=== PATIENT | female | born 1945 | race Caucasian/White ===

== ENCOUNTER 2019-09-10 01:15 | Day surgery (SDC) | payer MEDICARE, BC, SELFPAY ==
[2019-09-05 15:00] VITALS: BMI 23.4
[2019-09-10 08:06] VITALS: BP 162/81; PULSE 85; RESP 20; TEMP 36.4; O2SAT 97
--- NOTE | 2019-09-10 08:11 | WPDANESEPPF ---
Anes - Initial Pre Proc Eval Procedure: Operation Date: 09/10/19 09:00 Proposed Procedures p Screening Colonoscopy - Hayden Basilio MD Date/Time: 09/10/19 08:11 Surgeon: Hayden Basilio MD Pre Op Diagnosis: Neoplasm Screening Patient Data Age: 74 Gender: F Height: 1.75 m Weight: 72.6 kg Last Vital Signs Temp 36.4 C 09/10/19 08:06 Pulse 85 09/10/19 08:06 Resp 20 09/10/19 08:06 BP 162/81 H 09/10/19 08:06 Pulse Ox 97 09/10/19 08:06 Allergies Allergy/AdvReac Type Severity Reaction Status Date / Time Penicillins Allergy Unknown Rash Verified 09/10/19 08:00 Home Medications Medication Instructions Recorded Confirmed Type atorvastatin 10 mg tablet 10 mg PO DAILY #90 tablet 08/10/19 09/05/19 Rx albuterol sulfate [ProAir HFA] 1 inh INHALATION QID PRN 09/05/19 09/05/19 History amitriptyline 50 mg PO DAILY 09/05/19 09/05/19 History biotin 1 mg PO DAILY 09/05/19 09/05/19 History calcium carbonate [Calcium 600] 600 mg PO DAILY 09/05/19 09/05/19 History cholecalciferol (vitamin D3) 25 mcg PO DAILY 09/05/19 09/05/19 History [Vitamin D3] belen ajvfew-Bc-crlPnfesiseu-tea 1 tablet PO DAILY 09/05/19 09/05/19 History [Apple Cider Vinegar Plus] cinnamon bark [Cinnamon] 500 mg PO DAILY 09/05/19 09/05/19 History diphenhydramine HCl [Allergy] 25 mg PO HS 09/05/19 09/05/19 History fluticasone propionate 50 mcg INTRANASAL DAILY 09/05/19 09/05/19 History spjlhbpqqyl-jkdsbqxei-ggrjezex 1 inh INHALATION HS 09/05/19 09/05/19 History [Trelegy Ellipta] folic acid 0.8 mg PO DAILY 09/05/19 09/05/19 History glucosam mejia awn-pqczzxzzf-S-Mn 1 cap PO DAILY 09/05/19 09/05/19 History multivitamin [Multiple Vitamins] 1 tablet PO DAILY 09/05/19 09/05/19 History mv,Ca,min-iron bqcg-LC-kmhfpv 1 tablet PO DAILY 09/05/19 09/05/19 History [Hair,Skin and Nails] ranitidine HCl 300 mg PO BID 09/05/19 09/05/19 History vit C,V-Js-wlrhr-lutein-zeaxan 1 cap PO DAILY 09/05/19 09/05/19 History [PreserVision AREDS-2] vitamin E 400 unit PO DAILY 09/05/19 09/05/19 History Patient hx anesthesia problems: none Family hx anesthesia problems: none [facility] Past Medical History Medical History (Updated 09/10/19 @ 08:12 by Armando Jalloh DO) Asthma Elevated diaphragm was causing GERD/cough. No breathing issues. Cough stopped after GERD treated GERD (gastroesophageal reflux disease) RLS (restless legs syndrome) Family History Family History (Updated 05/29/18 @ 11:48 by DOCTOR UNKNOWN) Other Acute myocardial infarction Family history of emphysema Social History Social History Smoking status: Former smoker Smoking end date: 08/29/93 Anes - Eval Final PreProcedure Day of Procedure 09/10/19 08:11 Patient weight: normal Heart: regular rate and rhythm Lungs: clear to auscultation and normal air movement Airway: Mallampati scale class II Neurological: alert and oriented Last oral intake: >/= 8 hours ASA classification: II Emergent: no Anesthetic plan: proceed Anesthesia type and monitoring: general GIVS and standard monitoring Informed Consent: The patient's anesthetic plan and its attendant risks and benefits were discussed with the patient/family/POA. Questions were solicited and answers provided to the satisfaction of the patient/family/POA.
[2019-09-10] MEDS: LACTATED RINGERS 1,000 ML 150 ML IV CONT (08:18)
--- NOTE | 2019-09-10 08:20 | WPDGICN ---
Assessment and Plan Additional Plan This is a 74-year-old white female patient seen in evaluation at the request of Dr. Trice Arauz. Patient presents for screening colonoscopy. Her current weight appetite bowel movements are normal. She denies any blood in her stools. She denies any abdominal pain. Her last colonoscopy was 10 years previous to this. Family history is noncontributory. Current medications include ProAir, atorvastatin, amitriptyline, and ranitidine. She has no stated drug allergies. Physical exam reveals her to be alert. Oriented x3. Vital signs stable. HEENT exam unremarkable. Lungs are clear to auscultation and percussion. Heart is without murmur or extra sounds. Abdominal exam bowel sounds are present soft nontender with no organomegaly. Digital external rectal exam is normal. Impression neoplasia screening advised because of her age. Plan is for colonoscopy to be performed today. GI Consult Note Consult date/time: 09/10/19 08:20 HPI: Jodee Castle is a 74 year old female [facility] Past Medical History Medical History (Updated 09/10/19 @ 08:12 by Armando Jalloh DO) Asthma Elevated diaphragm was causing GERD/cough. No breathing issues. Cough stopped after GERD treated GERD (gastroesophageal reflux disease) RLS (restless legs syndrome) Family History Family History (Updated 05/29/18 @ 11:48 by DOCTOR UNKNOWN) Other Acute myocardial infarction Family history of emphysema Social History Social History Smoking status: Former smoker Smoking end date: 08/29/93 Meds Home Medications and Allergies Home Medications Medication Instructions Recorded Confirmed Type atorvastatin 10 mg tablet 10 mg PO DAILY #90 tablet 08/10/19 09/05/19 Rx albuterol sulfate [ProAir HFA] 1 inh INHALATION QID PRN 09/05/19 09/05/19 History amitriptyline 50 mg PO DAILY 09/05/19 09/05/19 History biotin 1 mg PO DAILY 09/05/19 09/05/19 History calcium carbonate [Calcium 600] 600 mg PO DAILY 09/05/19 09/05/19 History cholecalciferol (vitamin D3) 25 mcg PO DAILY 09/05/19 09/05/19 History [Vitamin D3] belen xiwuuc-Ne-epqNymejgdrb-tea 1 tablet PO DAILY 09/05/19 09/05/19 History [Apple Cider Vinegar Plus] cinnamon bark [Cinnamon] 500 mg PO DAILY 09/05/19 09/05/19 History diphenhydramine HCl [Allergy] 25 mg PO HS 09/05/19 09/05/19 History fluticasone propionate 50 mcg INTRANASAL DAILY 09/05/19 09/05/19 History xryfqvmvcfx-wngdbyllb-kmlxpxlf 1 inh INHALATION HS 09/05/19 09/05/19 History [Trelegy Ellipta] folic acid 0.8 mg PO DAILY 09/05/19 09/05/19 History glucosam mejia agp-xolzoowaj-H-Mn 1 cap PO DAILY 09/05/19 09/05/19 History multivitamin [Multiple Vitamins] 1 tablet PO DAILY 09/05/19 09/05/19 History mv,Ca,min-iron cdjz-MF-mrepww 1 tablet PO DAILY 09/05/19 09/05/19 History [Hair,Skin and Nails] ranitidine HCl 300 mg PO BID 09/05/19 09/05/19 History vit C,A-Ho-wuqci-lutein-zeaxan 1 cap PO DAILY 09/05/19 09/05/19 History [PreserVision AREDS-2] vitamin E 400 unit PO DAILY 09/05/19 09/05/19 History Allergies Allergy/AdvReac Type Severity Reaction Status Date / Time Penicillins Allergy Unknown Rash Verified 09/10/19 08:00 Vital Signs Vital Signs - 24 hr 09/10/19 08:06 Temperature 36.4 C Pulse Rate 85 Respiratory Rate 20 Blood Pressure 162/81 H Pulse Oximetry 97
[2019-09-10 08:49] VITALS: BP 153/65; PULSE 69; RESP 16; O2SAT 97
[2019-09-10 08:59] VITALS: BP 134/68; PULSE 74; RESP 16; O2SAT 98
[2019-09-10 09:09] VITALS: BP 145/76; PULSE 76; RESP 16; O2SAT 98
== END 2019-09-10 09:31 | disposition home or self-care (01) ==
PROVIDERS: PCP Internal Medicine; Visit Provider Internal Medicine Gastroenterology
PROC: 0DJD8ZZ Inspection of Lower Intestinal Tract, Via Natural or Artificial Opening Endoscopic (ICD-10-PCS; CPT 45378; principal; 2019-09-10 09:00)
DX: Z12.11 Encounter for screening for malignant neoplasm of colon (principal); K57.30 Diverticulosis of large intestine without perforation or abscess without bleeding; K64.8 Other hemorrhoids; K21.9 Gastro-esophageal reflux disease without esophagitis; J45.909 Unspecified asthma, uncomplicated; G25.81 Restless legs syndrome; Z87.891 Personal history of nicotine dependence
CPT/HCPCS: G0121; J2704; J7120

== ENCOUNTER → 2020-06-20 09:21 | Outpatient (CLI) | payer MEDICARE, BC, SELFPAY ==
--- NOTE | ~2020-06-20 | US_ITS ---
EXAMINATION: US thyroid DATE: 06/20/2020 09:42 INDICATION: Thyroid nodule. TECHNIQUE: Multiple ultrasound images of the thyroid were obtained. COMPARISON: Ultrasound 11/15/2018 FINDINGS: The right thyroid lobe measures 4.7 x 1.1 x 1.9 cm. The left thyroid lobe measures 4.7 x 1.4 x 1.8 c m. In the left thyroid lobe, there is a 2.1 cm predominantly solid, hypoechoic, ydjge-jfyv-siop nodu le with smooth margin without echogenic foci (TI-RADS TR4). In the right thyroid lobe, there is an 8 mm solid, hypoechoic, dxoht-tege-vhwk nodule with smooth margin without echogenic foci (TR4). In the right thyroid lobe, there is a 6 mm solid, hypoechoic, ifpru-xxjq-rnac nodule with ill-defined margin and punctate echogenic foci (TR5). In the right thyroid lobe, there is a 6 mm solid, hypoechoic, wid zp-dyuv-pxjt nodule with lobulated margin without echogenic foci (TR4). IMPRESSION: 1. Multinodular goiter, stable from 11/15/2018. By report, the patient has a history of benign biopsy on the left. Thyroid ultrasound is recommended in one year. Reviewed, dictated and finalized at location A. IMPRESSION: 1. Multinodular goiter, stable from 11/15/2018. By report, the patient has a his tory of benign biopsy on the left. Thyroid ultrasound is recommended in one yea r.
== END ==
PROVIDERS: PCP Internal Medicine; Visit Provider Internal Medicine
DX: E04.2 Nontoxic multinodular goiter (principal)
CPT/HCPCS: 76536

== ENCOUNTER 2021-01-09 09:39 | Outpatient (CLI) | payer MEDICARE, BC, SELFPAY ==
--- NOTE | ~2021-01-09 | CT_ITS ---
EXAMINATION: CT sinus wo con DATE: 01/09/2021 09:57 INDICATION: Chronic rhinitis TECHNIQUE: Computed tomography (CT) of the paranasal sinuses was performed without contrast. Iterativ e reconstruction technique was employed. Exam dose: 299.51 mGy-cm total exam DLP. COMPARISON: None FINDINGS: There is rightward deviation of nasal septum. There is soft tissue swelling of the nasal turbinates bilaterally. Mild intralamellar cell of right middle nasal turbinate. More prominent interlamellar cell of the lef t middle nasal turbinate. Postoperative changes including resection of the upper half of the right maxillary sinus medial wall and uncinate process. There is a small left nasal antral window. The ostiomeatal units are patent. There is posterior soft tissue opacification of the left sphenoid sinus. The paranasal sinuses otherw ise are normally developed and aerated. The mastoid air cells are normally developed and aerated. Middle and inner ear apparatus appear selvin l. IMPRESSION: Rightward deviation of nasal septum Soft tissue swelling of the nasal turbinates Bilateral interlamellar cell of middle nasal turbinates, more prominent on the left Postoperative changes Posterior soft tissue thickening of left sphenoid sinus Reviewed, dictated and finalized at Location [facility]. Reviewed, dictated and finalized at location A.
== END 2021-01-09 09:40 | disposition home or self-care (01) ==
LOC: ANHIMG 09:44
PROVIDERS: PCP Internal Medicine; Visit Provider Allergy & Immunology
DX: J31.0 Chronic rhinitis (principal)
CPT/HCPCS: 70486

== ENCOUNTER 2021-05-23 11:19 | Emergency (ER) | payer MEDICARE, BC, SELFPAY ==
--- NOTE | ~2021-05-23 | XR_ITS ---
EXAMINATION: XR ankle LT min 3V EXAM DATE: 05/23/2021 11:38 INDICATION: Fall off ladder one week ago, pain bilateral lateral ankles . Initial encounter. TECHNIQUE: Left ankle frontal, lateral and oblique projections obtained and reviewed. There is no pr ior study for comparison. FINDINGS: The left ankle mortise appears intact. There are no acute fractures or dislocations ident ified. There is no subcutaneous gas. The soft tissue is unremarkable. There are no radiopaque for eign bodies. IMPRESSION: 1. Left ankle exam without acute osseous findings. Reviewed, dictated and finalized at location A.
--- NOTE | ~2021-05-23 | XR_ITS ---
EXAMINATION: XR ankle RT min 3V EXAM DATE: 05/23/2021 11:38 INDICATION: Fell off ladder one week ago. Initial encounter. TECHNIQUE: Right ankle frontal, lateral and oblique projections obtained and reviewed. Correlation is made to contralateral ankle same date. FINDINGS: The right ankle mortise appears intact. There are no acute fractures or dislocations iden tified. There is no subcutaneous gas. The soft tissue is unremarkable. There are no radiopaque fo reign bodies. IMPRESSION: 1. Right ankle exam without acute osseous findings. Reviewed, dictated and finalized at location A.
[2021-05-23 11:44] VITALS: BP 147/73; PULSE 92; RESP 16; TEMP 36.4; O2SAT 99
--- NOTE | 2021-05-23 11:45 | ED.LOWEXIN ---
HPI - Extremity Injury (Lower) General Chief Complaint: Extremity Injury, Lower Stated Complaint: bilateral ankle injury Time Seen by Provider: 05/23/21 11:45 Source: patient and RN notes reviewed Mode of arrival: ambulatory Limitations: no limitations History of Present Illness HPI Narrative: 75-year-old female presents with concern for bilateral ankle pain. Reports 10 days ago she was on a ladder when she started to slip, grabbed a branch and slid down the ladder landing on her feet roughly. Reports approximately 30 minutes later she began having pain in her left ankle. Reports she used ice, elevation, compression for 1 day. Reports throughout the week symptoms were mild, however she began having more swelling and discomfort in the last couple days and began having discomfort in the right ankle as well. She denies any calf swelling, redness, warmth. Denies any open skin, rash, lacerations or abrasions. Denies any decreased strength, sensation, range of motion Related Data Home Medications Medication Instructions Recorded Confirmed albuterol sulfate [ProAir HFA] 1 inh INHALATION QID PRN 09/05/19 05/23/21 amitriptyline 50 mg PO DAILY 09/05/19 05/23/21 biotin 1 mg PO DAILY 09/05/19 05/23/21 calcium carbonate [Calcium 600] 600 mg PO DAILY 09/05/19 05/23/21 cholecalciferol (vitamin D3) 25 mcg PO DAILY 09/05/19 05/23/21 [Vitamin D3] diphenhydramine HCl [Allergy] 25 mg PO HS 09/05/19 05/23/21 fluticasone propionate 50 mcg INTRANASAL DAILY 09/05/19 05/23/21 folic acid 0.8 mg PO DAILY 09/05/19 05/23/21 glucosam mejia pzg-aeogolldm-H-Mn 1 cap PO DAILY 09/05/19 05/23/21 vit C,M-Ru-jttkr-lutein-zeaxan 1 cap PO DAILY 09/05/19 05/23/21 [PreserVision AREDS-2] vitamin E 400 unit PO DAILY 09/05/19 05/23/21 famotidine 10 mg tablet 10 mg PO DAILY 03/16/21 05/23/21 fluticasone furoate 100 1 inh INHALATION Q24H 03/16/21 05/23/21 mcg-vilanterol 25 mcg/dose inhalation powder lisinopril 2.5 mg tablet 2.5 mg PO DAILY 03/16/21 05/23/21 atorvastatin 10 mg PO DAILY 05/23/21 05/23/21 Allergies Allergy/AdvReac Type Severity Reaction Status Date / Time Penicillins Allergy Unknown Rash Verified 05/23/21 11:26 Review of Systems Review of Systems: CONSTITUTIONAL: Denies malaise, chills, sweats, or fever. CARDIOVASCULAR: Denies chest pain, palpitations RESPIRATORY: Denies cough or dyspnea. SKIN: Denies rash, redness, warmth, lacerations or abrasions MUSCULOSKELETAL: Reports left ankle swelling, pain. Reports mild right ankle pain without swelling NEUROLOGIC: Denies numbness, weakness All systems reviewed & are unremarkable except as noted in HPI and below PMFSH Past Medical History Medical History Asthma Elevated diaphragm was causing GERD/cough. No breathing issues. Cough stopped after GERD treated GERD (gastroesophageal reflux disease) RLS (restless legs syndrome) Family History Family History Mother Heart disease Sibling Asthma Depression Hypertension Other Asthma Grandparent Ovarian cancer Other Acute myocardial infarction Family history of emphysema Social History Social History Smoking status: Former smoker Smoking end date: 08/29/93 Alcohol intake: current Substance use: never Substance use type: does not use Comments At time of signature, agree with nursing past medical, surgical, social and family history. There is no relevant family history pertinent to the presenting complaint Exam Narrative: GENERAL: Well-appearing, well-nourished, and in no acute distress. HEAD: Normocephalic, atraumatic. EYES: PERRLA, conjunctivae clear NECK: Supple. CHEST: Speaks in full sentences. No respiratory distress. HEART: Regular rate and rhythm. Normal and equal peripheral pulses. EXTREMITIES: Bilateral ankles, feet, digits have normal strength a
== END 2021-05-23 12:02 | disposition home or self-care (01) ==
PROVIDERS: Emergency Provider Nurse Practitioner; PCP Internal Medicine
DX: S99.912A Unspecified injury of left ankle, initial encounter (principal); J45.909 Unspecified asthma, uncomplicated; Z87.891 Personal history of nicotine dependence; W11.XXXA Fall on and from ladder, initial encounter
CPT/HCPCS: 73610; 99214; G0463

== ENCOUNTER → 2021-07-01 15:37 | Outpatient (CLI) | payer MEDICARE, BC, SELFPAY ==
--- NOTE | ~2021-07-01 | US_ITS ---
EXAMINATION: US thyroid EXAM DATE: 07/01/2021 15:57 INDICATION: Thyroid nodules. History of left-sided thyroid nodule biopsy. TECHNIQUE: Multiple grayscale and Doppler images of the thyroid were obtained (by a technologist who performed the scan) and subsequently reviewed. Individual nodules and recommendations may be reporte d in accordance with TI-RADS system as designated by the 2017 ACR White Paper TI-RADS committee. Comp arison is made to prior examination from 06/20/2020. FINDINGS: The right thyroid lobe measures 4.6 x 1.1 x 1.6 in meters, the left measuring 5.2 x 1.4 x 1.6 cm. The re is moderately diffusely heterogeneous thyroid echogenicity. There are scattered thyroid nodules bi laterally. Largest thyroid nodule is in the left thyroid lobe measuring 1.9 x 1.1 x 1.3 centimeters, predominant ly solid (2 points), hypoechoic (2 points), wider than tall, smooth well defined margin, without echo genic foci, category TR4 for this nodule. Size is stable or decreased compared to 2019. IMPRESSION: Stable thyroid nodules. Reviewed, dictated and finalized at location A. IMPRESSION: Stable thyroid nodules.
== END ==
PROVIDERS: PCP Internal Medicine; Visit Provider Internal Medicine
DX: E04.2 Nontoxic multinodular goiter (principal)
CPT/HCPCS: 76536

== ENCOUNTER → 2021-07-21 08:40 | Outpatient (CLI) | payer MEDICARE, BC, SELFPAY ==
--- NOTE | ~2021-07-21 | MR_ITS ---
EXAMINATION: MR cervical spine wo con EXAM DATE: 07/21/2021 09:20 INDICATION: Cervical radiculopathy. TECHNIQUE: Multi-sequential, multiplanar MR images of the cervical spine were obtained without contra st. Axial T2, axial T2 MERGE sequence. Sagittal T1, T2, T2 fat saturation images also obtained. Th ere is no prior study for comparison. FINDINGS: There is moderate to severe disc disease C4-5 and 5-6, moderate at C6-7 with 4 mm degenera tive anterolisthesis. Cervicomedullary junction is normal in appearance. The spinal cord signal inten sity and intrinsic morphology is normal. There are no suspicious marrow signal abnormalities. Paraspi nal soft tissue is unremarkable. Level by level evaluation: C2-C3: Disc does not extend beyond the endplate margin. Uncovertebral joint arthropathy: Mild right. Facet joint arthropathy: Severe right, mild left. Neural foraminal stenosis: Mild to moderate right. Central canal stenosis: No stenosis. C3-C4: Disc does not extend beyond the endplate margin. Uncovertebral joint arthropathy: Mild bilateral. Facet joint arthropathy: Moderate bilateral. Neural foraminal stenosis: No stenosis. Central canal stenosis: No stenosis. C4-C5: There is a mild to moderate diffuse disc bulge. Uncovertebral joint arthropathy: Moderate to severe bilateral. Facet joint arthropathy: Moderate bilateral. Neural foraminal stenosis: Moderate bilateral, left greater than right. Central canal stenosis: Mild . Central canal measures 6-7 mm in mid sagittal AP diameter . C5-C6: There is a mild diffuse disc bulge. Uncovertebral joint arthropathy: Moderate to severe right, moderate left. Facet joint arthropathy: Mild to moderate bilateral. Neural foraminal stenosis: Moderate right, mild to moderate left. Central canal stenosis: Mild . Central canal measures 7 mm in mid sagittal AP diameter . C6-C7: There is a mild diffuse disc bulge. Uncovertebral joint arthropathy: Moderate bilateral. Facet joint arthropathy: Moderate bilateral. Neural foraminal stenosis: No stenosis. Central canal stenosis: Minimal. C7-T1: Disc does not extend beyond the endplate margin. Uncovertebral joint arthropathy: Mild left. Facet joint arthropathy: Mild bilateral. Neural foraminal stenosis: No stenosis. Central canal stenosis: No stenosis. IMPRESSION: 1. Mid cervical predominant spondylosis. 2. Grade 2 anterolisthesis C6 on C7. Reviewed, dictated and finalized at location A. [employer] WORK[employer]
== END ==
PROVIDERS: PCP Internal Medicine; Visit Provider Nurse Practitioner Adult Health
DX: M47.23 Other spondylosis with radiculopathy, cervicothoracic region (principal); M48.03 Spinal stenosis, cervicothoracic region
CPT/HCPCS: 72141

== ENCOUNTER → 2021-11-03 12:48 | Outpatient (CLI) | payer MEDICARE, BC, SELFPAY ==
--- NOTE | ~2021-11-03 | DEXA_ITS ---
Bone Density Report Name: VICTORINO WADE Age: 76 Sex: Female Ethnicity: White Date of : 1945 Indication: postmenopausal; screening for osteoporosis; height loss; asthma or emphysema; hysterectomy; Referring Provider: LUCA, FAMILIA Jackson Study: Bone densitometry was performed. Exam Date: November 03, 2021 Accession number: [id number] Bone Density: Region BMD T-score Z-score Classification AP Spine (L1-L4) 1.050 0.0 2.6 Normal Femoral Neck (Left) 0.692 -1.4 0.8 Osteopenia Total Hip (Left) 0.798 -1.2 0.7 Osteopenia Femoral Neck (Right) 0.702 -1.3 0.9 Osteopenia Total Hip (Right) 0.819 -1.0 0.9 Normal Total Hip Mean 0.809 -1.1 0.8 Osteopenia World Health Organization criteria for BMD impression classify patients as: Normal (T-score at or above -1.0), Osteopenia (T-score between -1.0 and -2.5), or Osteoporosis (T-score at or below -2.5). 10-year Fracture Risk(1): Major Osteoporotic Fracture 12% Hip Fracture 2.6% Reported Risk Factors: [place] (), Neck BMD=0.692, BMI=24.4 (1) FRAX(R) Version 3.08. Fracture probability calculated for an untreated patient. Fracture probability may be lower if the patient has received treatment. Previous Exams: Region Exam Age BMD T-score BMD Change BMD Change Date g/cm2 vs Baseline vs Previous AP Spine(L1-L4) 11/03/2021 76 1.050 0.0 0.052* 0.052* 11/15/2018 73 0.998 -0.4 Total Hip(Left) 11/03/2021 76 0.798 -1.2 -0.019 -0.019 11/15/2018 73 0.818 -1.0 Total Hip(Right) 11/03/2021 76 0.819 -1.0 -0.049* -0.049* 11/15/2018 73 0.868 -0.6 *Denotes significance at 95% confidence level, LSC for AP Spine = 0.022 g/cm2, LSC for Total Hip = 0.027 g/cm2 Clinical Information Provided by Patient: Has used the following medications: Vitamin D, Calcium, MTV Has the following medical conditions: Asthma or Emphysema, Hysterectomy Patient maximum height was 69.0 Menopause Age: 32 Does not regularly consume dairy products Onset of menses at age 14 Number of children 0 Impression: The patient has low bone mass, based on the Left Femoral Neck T-score. The patient has an estimated ten-year risk of hip fracture of 2.6% and an estimated ten-year risk of major fracture of 12%, based on the WHO FRAX algorithm. The BMD for the Total Hip(Right) decreased, changing by -0.049 since the last DXA exam. Discussion: BONE DENSITY IS LOW AT ONE OR M
== END ==
PROVIDERS: PCP Internal Medicine; Visit Provider Internal Medicine
DX: M85.851 Other specified disorders of bone density and structure, right thigh (principal); M85.852 Other specified disorders of bone density and structure, left thigh
CPT/HCPCS: 77080

== ENCOUNTER 2022-01-14 08:32 | Outpatient (CLI) | payer MEDICARE, BC, SELFPAY ==
--- NOTE | 2022-01-14 | EST_ITS ---
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 Summary 1. Abnormal ST segment depression consistent with myocardial ischemia. Protocol: [facility] Stress ECG Details Stage: REST Duration (min): 0 min : 52 sec Speed (mph): 0.0 Grade (%): 0 HR (bpm): 71 SBP (mmHg): --- DBP (mmHg): --- METS: --- Stage: REST Duration (min): 7 min : 52 sec Speed (mph): 0.0 Grade (%): 0 HR (bpm): 72 SBP (mmHg): --- DBP (mmHg): --- METS: --- Stage: STAGE 1 Duration (min): 1 min : 0 sec Speed (mph): 1.7 Grade (%): 10 HR (bpm): 90 SBP (mmHg): --- DBP (mmHg): --- METS: --- Stage: STAGE 1 Duration (min): 2 min : 0 sec Speed (mph): 1.7 Grade (%): 10 HR (bpm): 102 SBP (mmHg): --- DBP (mmHg): --- METS: --- Stage: STAGE 1 Duration (min): 3 min : 0 sec Speed (mph): 1.7 Grade (%): 10 HR (bpm): 110 SBP (mmHg): 172 DBP (mmHg): 58 METS: --- Stage: STAGE 2 Duration (min): 1 min : 0 sec Speed (mph): 2.5 Grade (%): 12 HR (bpm): 114 SBP (mmHg): 172 DBP (mmHg): 58 METS: --- Stage: STAGE 2 Duration (min): 2 min : 0 sec Speed (mph): 2.5 Grade (%): 12 HR (bpm): 121 SBP (mmHg): 186 DBP (mmHg): 54 METS: --- Stage: STAGE 2 Duration (min): 3 min : 0 sec Speed (mph): 2.5 Grade (%): 12 HR (bpm): 125 SBP (mmHg): 186 DBP (mmHg): 54 METS: --- Stage: STAGE 3 Duration (min): 0 min : 44 sec Speed (mph): 3.4 Grade (%): 14 HR (bpm): 129 SBP (mmHg): 186 DBP (mmHg): 54 METS: --- Stage: RECOVERY Duration (min): 0 min : 15 sec Speed (mph): 0.0 Grade (%): 0 HR (bpm): 132 SBP (mmHg): 186 DBP (mmHg): 59 METS: --- Stage: RECOVERY Duration (min): 1 min : 15 sec Speed (mph): 0.0 Grade (%): 0 HR (bpm): 119 SBP (mmHg): 186 DBP (mmHg): 59 METS: --- Stage: RECOVERY Duration (min): 2 min : 15 sec Speed (mph): 0.0 Grade (%): 0 HR (bpm): 105 SBP (mmHg): 186 DBP (mmHg): 59 METS: --- Stage: RECOVERY Duration (min): 3 min : 3 sec Speed (mph): 0.0 Grade (%): 0 HR (bpm): 104 SBP (mmHg): 185 DBP (mmHg): 61 METS: --- Rest HR: 72 bpm Peak HR:
== END 2022-01-14 08:33 | disposition home or self-care (01) ==
LOC: ANHCARD 08:35
PROVIDERS: PCP Internal Medicine; Visit Provider Internal Medicine
DX: I25.10 Atherosclerotic heart disease of native coronary artery without angina pectoris (principal); I25.83 Coronary atherosclerosis due to lipid rich plaque
CPT/HCPCS: 93017

== ENCOUNTER → 2022-01-29 13:31 | Outpatient (CLI) | payer MEDICARE, BC, SELFPAY ==
--- NOTE | ~2022-01-29 | XR_ITS ---
EXAMINATION: XR pelvis 1-2V DATE: 01/29/2022 13:47 INDICATION: Low back pain TECHNIQUE: 1. Anteroposterior and lateral and cone-down lateral lumbosacral views of the lumbosacral junction we re obtained. 2. AP view of the pelvis was obtained. COMPARISON: None. FINDINGS: Normal alignment of the lumbar spine and in the pelvis. Vertebral body heights are normal. Moderate d isc height loss at L2-L3 and mild disc height loss at remaining levels from L1-L2 through L5-S1. Mild to moderate lower lumbar facet osteoarthritis. Sacral arches are intact. Mild bilateral sacroiliac o steoarthritis. Bilateral hip joint spaces are relatively preserved. Soft tissues are unremarkable. IMPRESSION: 1. Mild to moderate lumbar spondylosis. 2. Mild bilateral sacroiliac osteoarthritis. Reviewed, dictated and finalized at location B.
--- NOTE | ~2022-01-29 | XR_ITS ---
EXAMINATION: XR lumbar spine 2-3V DATE: 01/29/2022 13:47 INDICATION: Low back pain TECHNIQUE: 1. Anteroposterior and lateral and cone-down lateral lumbosacral views of the lumbosacral junction we re obtained. 2. AP view of the pelvis was obtained. COMPARISON: None. FINDINGS: Normal alignment of the lumbar spine and in the pelvis. Vertebral body heights are normal. Moderate d isc height loss at L2-L3 and mild disc height loss at remaining levels from L1-L2 through L5-S1. Mild to moderate lower lumbar facet osteoarthritis. Sacral arches are intact. Mild bilateral sacroiliac o steoarthritis. Bilateral hip joint spaces are relatively preserved. Soft tissues are unremarkable. IMPRESSION: 1. Mild to moderate lumbar spondylosis. 2. Mild bilateral sacroiliac osteoarthritis. Reviewed, dictated and finalized at location B.
== END ==
PROVIDERS: PCP Internal Medicine; Visit Provider Internal Medicine
DX: M54.50 Low back pain, unspecified (principal); M47.816 Spondylosis without myelopathy or radiculopathy, lumbar region; M47.898 Other spondylosis, sacral and sacrococcygeal region
CPT/HCPCS: 72100; 72170

== ENCOUNTER → 2022-08-31 11:12 | Outpatient (CLI) | payer MEDICARE, BC, SELFPAY ==
--- NOTE | ~2022-08-31 | US_ITS ---
Thyroid ultrasound. Clinical History: Multinodular goiter COMPARISON: 07/01/2021 and 06/20/2020 Findings: Real-time sonography of the thyroid gland was performed. The right lobe measures 4.0 x 1.3 x 1.7 cm. The left lobe measures 3.9 x 1.5 x 1.3 cm. The isthmus is 2 mm in AP diameter. There is an 8 mm hypoechoic nodule at the right mid to upper pole. Several additional smaller, subcen timeter right thyroid lobe nodules are present. There is a 1.9 x 1.3 x 1.7 cm heterogeneous solid nodule at the left lower pole. Impression: Thyroid nodules, as detailed above, without significant change from prior exams. Reviewed, dictated and finalized at location . [employer] TECHNICIAN Impression: Thyroid nodules, as detailed above, without significant change from prior exams .
== END ==
PROVIDERS: PCP Internal Medicine; Visit Provider Internal Medicine
DX: E04.2 Nontoxic multinodular goiter (principal)
CPT/HCPCS: 76536

== ENCOUNTER 2022-11-24 14:18 | Outpatient (CLI) | payer MEDICARE, BC, SELFPAY ==
--- NOTE | ~2022-11-24 | XR_ITS ---
XR femur LT min 2V DATE: 11/24/2022 14:47 INDICATION: Left lateral hip pain, upper thigh pain. No injury. TECHNIQUE: AP and lateral views of left femur COMPARISON: None FINDINGS: No fracture or dislocation, avascular necrosis or bone destruction. Normal alignment at the left hip and knee joints. IMPRESSION: Negative Reviewed, dictated and finalized at location B. IMPRESSION: Negative
--- NOTE | ~2022-11-24 | US_ITS ---
EXAMINATION: US venous doppler [facility] DATE: 11/24/2022 15:01 INDICATION: Left lower limb pain TECHNIQUE: Schwartz scale images without and with compression and Doppler images of the left lower extrem ity veins were obtained. COMPARISON: None FINDINGS: The left common femoral vein, profunda femoral vein, femoral vein, popliteal vein, peroneal trunk, posterior tibial veins, and greater saphenous vein are patent. IMPRESSION: 1. Patent left lower extremity veins. No evidence of deep venous thrombosis. Reviewed, dictated and finalized at location F.
--- NOTE | ~2022-11-24 | XR_ITS ---
XR hip LT min 2V DATE: 11/24/2022 14:46 INDICATION: Left lateral hip pain. No injury. TECHNIQUE: AP and lateral views COMPARISON: 01/29/2022 pelvis FINDINGS: No fracture or dislocation, avascular necrosis or bone destruction of the left hip. The pub ic symphysis and sacroiliac joints are normally aligned. IMPRESSION: Negative Reviewed, dictated and finalized at location B. IMPRESSION: Negative
== END 2022-11-24 14:19 | disposition home or self-care (01) ==
PROVIDERS: PCP Internal Medicine; Visit Provider Internal Medicine
DX: M79.652 Pain in left thigh (principal); M25.552 Pain in left hip
CPT/HCPCS: 73502; 73552; 93971

== ENCOUNTER 2022-12-31 10:24 | Outpatient (CLI) | payer MEDICARE, BC, SELFPAY ==
--- NOTE | ~2022-12-31 | US_ITS ---
EXAMINATION: US VENOUS LOWER EXT SRINATH DATE: 12/31/2022 11:39 INDICATION: Bilateral lower limb pain. Sprains. TECHNIQUE: Grayscale images without and with compression and Doppler images of the bilateral lower ex tremity veins were obtained. COMPARISON: None. FINDINGS: Right lower extremity: The right common femoral vein, profunda (deep) femoral vein, femoral vein, popliteal vein, peroneal t runk, posterior tibial veins and greater saphenous vein are patent and compressible. No evident reflu x in the common femoral, femoral or popliteal veins. Greater saphenous Proximal thigh: 4.5 mm no reflux Mid thigh: 4.0 mm no reflux Distal thigh: 4.0 mm no reflux At-the-knee: 3.8 mm >4 seconds Proximal calf: 3.5 mm >4 seconds Mid calf: 2.4 mm >4 seconds Distal calf: 2.0 mm >4 seconds Lesser saphenous Proximal: 1.7 mm no reflux Mid: 2.0 mm no reflux Left lower extremity: The left common femoral vein, profunda femoral vein, femoral vein, popliteal vein, peroneal trunk, po sterior tibial veins and greater saphenous vein are patent. No evident reflux in the common femoral, femoral or popliteal veins. Greater saphenous Origin: 2.4 mm no reflux Mid thigh: 2.8 mm no reflux Distal thigh: 1.7 mm no reflux At-the-knee: 2.1 mm no reflux Proximal calf: 1.8 mm no reflux Mid calf: 1.4 mm no reflux Distal calf: 1.9 mm >3.5 seconds Lesser saphenous Proximal: 1.0 mm 2 seconds Mid: 0.8 mm no reflux Distal: mm no reflux IMPRESSION: 1. Patent bilateral lower extremity veins. No evidence of deep venous thrombosis. 2. >4 second reflux in the right greater saphenous vein at and below the right knee. 3. 3.5 second reflux at the left greater saphenous at the distal calf and 2 second reflux at the left lesser saphenous veins at the proximal left calf. Reviewed, dictated and finalized at location B. IMPRESSION: 1. Patent bilateral lower extremity veins. No evidence of deep venous thrombos is. 2. >4 second reflux in the right greater saphenous vein at and below the right knee. 3. 3.5 second reflux at the left greater saphenous at the distal calf and 2 sec ond reflux at the left lesser saphenous veins at the proximal left calf.
== END 2022-12-31 10:25 | disposition home or self-care (01) ==
PROVIDERS: PCP Internal Medicine; Visit Provider Internal Medicine Cardiovascular Disease
DX: I73.9 Peripheral vascular disease, unspecified (principal); M79.604 Pain in right leg; M79.605 Pain in left leg
CPT/HCPCS: 93970

== ENCOUNTER 2023-02-18 10:31 | Outpatient (CLI) | payer MEDICARE, BC, SELFPAY ==
--- NOTE | ~2023-02-18 | US_ITS ---
EXAMINATION: US venous doppler LE RT DATE: 02/18/2023 11:05 INDICATION: Varicose veins of the right lower limb presenting with right lower limb pain TECHNIQUE: Grayscale ultrasound images without and with compression and Doppler ultrasound images of the right lower extremity veins were obtained. COMPARISON: None. FINDINGS: The visualized portions of right common femoral vein, profunda (deep) femoral vein, femoral vein, pop liteal vein, peroneal trunk, posterior tibial veins, peroneal veins and gastrocnemius vein are patent . The right greater saphenous vein is thrombosed and noncompressible extending proximally to its conf luence with the common femoral vein. IMPRESSION: 1. Thrombosis of the greater saphenous vein extending to its confluence consistent with reported rec ent greater saphenous vein ablation. 2. No deep venous thrombosis in the right lower limb. Reviewed, dictated and finalized at location A. IMPRESSION: 1. Thrombosis of the greater saphenous vein extending to its confluence consis tent with reported recent greater saphenous vein ablation. 2. No deep venous thrombosis in the right lower limb.
== END 2023-02-18 10:32 | disposition home or self-care (01) ==
PROVIDERS: PCP Internal Medicine; Visit Provider Internal Medicine Cardiovascular Disease
DX: I83.811 Varicose veins of right lower extremity with pain (principal); I82.811 Embolism and thrombosis of superficial veins of right lower extremity
CPT/HCPCS: 93971

== ENCOUNTER → 2023-09-30 10:14 | Outpatient (CLI) | payer MEDICARE, BC, SELFPAY ==
--- NOTE | ~2023-09-30 | US_ITS ---
EXAMINATION: US thyroid DATE: 09/30/2023 10:57 INDICATION: Multinodular goiter. TECHNIQUE: Multiple ultrasound images of the thyroid were obtained. COMPARISON: Ultrasound 08/31/2022, 11/15/2018 FINDINGS: The right thyroid lobe measures 4.9 x 0.8 x 2.1 cm. The left thyroid lobe measures 5.4 x 1.5 x 2.1 c m. In the left thyroid lobe, there is a 2.1 cm predominantly solid, hypoechoic, wider than tall nodu le with ill-defined margin without echogenic foci (TI-RADS TR4), stable from 11/15/18. In the left thy roid lobe, there is a 7 mm solid, hypoechoic, wider than tall nodule with smooth margin without echog enic foci (TR4). In the left thyroid lobe, there is a 9 mm solid, isoechoic, wider than tall nodule w ith ill-defined margin without echogenic foci (TR3). In the right thyroid lobe, there is an 8 mm mixe d cystic and solid, hypoechoic, wider than tall nodule with smooth margin without echogenic foci (TR3 ). IMPRESSION: 1. Multinodular goiter, likely not clinically significant. No follow-up is needed. Reviewed, dictated and finalized at location E. T DIPPER IMPRESSION: 1. Multinodular goiter, likely not clinically significant. No follow-up is need ed.
== END ==
PROVIDERS: PCP Internal Medicine; Visit Provider Internal Medicine
DX: E04.2 Nontoxic multinodular goiter (principal)
CPT/HCPCS: 76536

== ENCOUNTER 2023-12-06 12:45 | Outpatient (CLI) | payer MEDICARE, BC, SELFPAY ==
--- NOTE | ~2023-12-06 | CT_ITS ---
EXAMINATION: CT sinus wo con DATE: 12/06/2023 13:01 INDICATION: Chronic sinusitis TECHNIQUE: Computed tomography (CT) of the paranasal sinuses was performed without intravenous contra st. The dose-length product was 399.18 mGy-cm. Automated exposure control and iterative reconstructio n technique were employed. COMPARISON: None FINDINGS: There is mild mucosal thickening of the right ethmoid air cells. No air-fluid levels. No si gnificant mucoperiosteal reaction. Rightward nasal septal deviation. There are surgical changes consi stent with previous resection of right ostiomeatal unit. Mastoids are pneumatized. IMPRESSION: 1. Minimal right ethmoid sinus disease. Reviewed, dictated and finalized at location A.
== END 2023-12-06 12:46 ==
LOC: GOSHIMG 12:46
PROVIDERS: PCP Internal Medicine; Visit Provider Otolaryngology
DX: J32.2 Chronic ethmoidal sinusitis (principal)
CPT/HCPCS: 70486

== ENCOUNTER 2024-01-24 08:22 | Outpatient (CLI) | payer MEDICARE, BC, SELFPAY ==
--- NOTE | ~2024-01-24 | DEXA_ITS ---
Bone Density Report Name: VICTORINO WADE Age: 78 Sex: Female Ethnicity: White Date of : 1945 Indication: osteopenia; height loss; asthma or emphysema; hysterectomy; Referring Provider: FAMILIA SEGOVIA Study: Bone densitometry was performed. Exam Date: January 24, 2024 Accession number: [id number] Bone Density: Region BMD T-score Z-score Classification AP Spine (L1-L4) 1.027 -0.2 2.5 Normal Femoral Neck (Left) 0.713 -1.2 1.1 Osteopenia Total Hip (Left) 0.797 -1.2 0.8 Osteopenia Femoral Neck (Right) 0.686 -1.5 0.8 Osteopenia Total Hip (Right) 0.846 -0.8 1.3 Normal Total Hip Mean 0.822 -1.0 1.1 Normal World Health Organization criteria for BMD impression classify patients as: Normal (T-score at or above -1.0), Osteopenia (T-score between -1.0 and -2.5), or Osteoporosis (T-score at or below -2.5). 10-year Fracture Risk(1): Major Osteoporotic Fracture 13% Hip Fracture 3.0% Reported Risk Factors: [place] (), Neck BMD=0.686, BMI=26.0 (1) FRAX(R) Version 3.08. Fracture probability calculated for an untreated patient. Fracture probability may be lower if the patient has received treatment. Previous Exams: Region Exam Age BMD T-score BMD Change BMD Change Date g/cm2 vs Baseline vs Previous AP Spine(L1-L4) 01/24/2024 78 1.027 -0.2 0.029* -0.023* 11/03/2021 76 1.050 0.0 0.052* 0.052* 11/15/2018 73 0.998 -0.4 Total Hip(Left) 01/24/2024 78 0.797 -1.2 -0.021 -0.001 11/03/2021 76 0.798 -1.2 -0.019 -0.019 11/15/2018 73 0.818 -1.0 Total Hip(Right) 01/24/2024 78 0.846 -0.8 -0.021 0.028* 11/03/2021 76 0.819 -1.0 -0.049* -0.049* 11/15/2018 73 0.868 -0.6 *Denotes significance at 95% confidence level, LSC for AP Spine = 0.022 g/cm2, LSC for Total Hip = 0.027 g/cm2 Clinical Information Provided by Patient: Has used the following medications: Vitamin D, Calcium Has the following medical conditions: Asthma or Emphysema, Hysterectomy Patient maximum height was 69.0 Menopause Age: 32 Does not regularly consume dairy products Drinks caffeinated beverages Onset of menses at age 14 Number of children 0 Impression: The patient has low bone mass, based on the Right Femoral Neck T-score. The patient has an estimated ten-year risk of hip fracture of 3% and an estimated ten-year risk of major fracture of 13%, based on the WHO FRAX algorithm. The BMD for the AP Spine(L1-L4) decreased, ch
== END 2024-01-24 08:23 ==
LOC: MICIMG 08:23
PROVIDERS: PCP Internal Medicine; Visit Provider Internal Medicine
DX: Z78.0 Asymptomatic menopausal state (principal); M85.89 Other specified disorders of bone density and structure, multiple sites
CPT/HCPCS: 77080

== ENCOUNTER 2024-03-14 00:16 | Day surgery (SDC) | payer MEDICARE, BC, SELFPAY ==
[2024-03-02 10:26] VITALS: BMI 25.0
[2024-03-14 14:37] VITALS: BP 167/72; PULSE 84; RESP 18; TEMP 36.2; O2SAT 100
[2024-03-14] MEDS: LACTATED RINGERS 1,000 ML 150 ML IV CONT (14:52)
--- NOTE | 2024-03-14 15:06 | WPDANESEPPF ---
Anes - Initial Pre Proc Eval Procedure: Operation Date: 03/14/24 15:30 Proposed Procedures p Colonoscopy - Yann Meyer MD Date/Time: 03/14/24 15:06 Surgeon: Yann Meyer MD Pre Op Diagnosis: Abnormal test results of function study organ/syst Patient Data Age: 78 Gender: F Height: 1.73 m Weight: 73.5 kg Last Vital Signs Temp 97.1 F L 03/14/24 14:37 Pulse 84 03/14/24 14:37 Resp 18 03/14/24 14:37 BP 167/72 H 03/14/24 14:37 Pulse Ox 100 03/14/24 14:37 O2 Del Method Room Air 03/14/24 14:37 Allergies Allergy/AdvReac Type Severity Reaction Status Date / Time Penicillins Allergy Unknown Rash Verified 03/14/24 14:35 Home Medications Medication Instructions Recorded Confirmed Type albuterol sulfate 90 mcg/actuation 1 inh inhalation QID PRN 09/05/19 03/02/24 History aerosol inhaler (ProAir HFA) difficulty breathing amitriptyline 50 mg tablet 50 mg PO DAILY 09/05/19 03/02/24 History calcium carbonate (Calcium 600) 600 mg PO DAILY 09/05/19 03/02/24 History cholecalciferol (vitamin D3) 25 25 mcg PO DAILY 09/05/19 03/02/24 History mcg (1,000 unit) capsule (Vitamin D3) diphenhydramine HCl 25 mg tablet 25 mg PO HS 09/05/19 03/02/24 History (Allergy) folic acid 0.8 mg capsule 0.8 mg PO DAILY 09/05/19 03/02/24 History glucosamine mejia dipot-chond mejia 1 cap PO DAILY 09/05/19 03/02/24 History sod-C-Mn 500 mg-400 mg-66 mg-3 mg cap vit C 250 mg-vit E 90 mg-zinc 40 1 cap PO DAILY 09/05/19 03/02/24 History mg-copper 1 pb-faglqo-iwitor capsule (PreserVision AREDS-2) vitamin E 268 mg (400 unit) capsule 400 unit PO DAILY 09/05/19 03/02/24 History famotidine 10 mg tablet 40 mg PO DAILY 03/16/21 03/02/24 History fluticasone furoate 100 1 inh inhalation Q24H 03/16/21 03/02/24 History mcg-vilanterol 25 mcg/dose inhalation powder (Breo Ellipta) azelastine 137 mcg (0.1 %) nasal 1 spray intranasal Q12H #30 mL 11/24/23 03/02/24 Rx spray atorvastatin 10 mg tablet 10 mg PO HS 03/02/24 03/02/24 History losartan 25 mg tablet 25 mg PO DAILY 03/02/24 03/02/24 History ropinirole 0.25 mg tablet 0.25 mg PO HS 03/02/24 03/02/24 History Patient hx anesthesia problems: none Family hx anesthesia problems: none Results Review: All pre-operative results and documents have been reviewed as part of the pre-operative evaluation. [facility] Past Medical History Medical History (Updated 01/25/24 @ 13:25 by Lynne Champion, FREIGHT CALLER-C) Abnormal PET scan of colon Asthma Elevated diaphragm was causing GERD/cough. No breathing issues. Cough stopped after GERD treated GERD (gastroesophageal reflux disease) HTN (hypertension) RLS (restless legs syndrome) Family History Family History Mother Heart disease Sibling Asthma Depression Hypertension Other Asthma Grandparent Ovarian cancer Other Acute myocardial infarction Family history of emphysema Social History Social History Smoking packs per day: 2 Smoking cigarettes per day: 40.0 Years smoked: 40 Smoking pack-years: 80.00 Smoking status: Former smoker Tobacco type: cigarettes Smoking end date: 08/29/93 Alcohol intake: current Drinks per week: 1 Alcohol use details: per month Substance use: never Substance use type: does not use Living arrangements: alone Spiritual care concerns: No Anes - Eval Final PreProcedure Day of Procedure 03/14/24 15:06 Patient weight: normal Heart: regular rate and rhythm Lungs: clear to auscultation Airway: Mallampati scale class II Neurological: alert and oriented Last oral intake: >/= 8 hours ASA classification: III Emergent: no Anesthetic plan: proceed Anesthesia type and monitoring: general GIVS and standard monitoring Results Review: All pre-operative results and documents have been reviewed as part of the pre-operativ
--- NOTE | 2024-03-14 15:43 | PM.HPGS ---
History of Present Illness History of Present Illness Consent: Risks, benefits, and alternatives have been discussed and questions answered. Patient agrees to proceed with procedure. Chief complaint: Abnormal test results of function study organ/syst Narrative: Jodee Castle is a 78 year old female here for colonoscopy, PET Scan obtained on 12/21/2023 for follow up on pulmonary nodule. prominent FDG uptake of the descending colon and sigmoid colon with some wall thickening and diverticulosis noted. Recommend colonoscopy for correlation. Her last colonoscopy was in [address] Basilio for routine colon cancer screening. A few diverticuli were noted otherwise unremarkable with 10 year follow up. Review of Systems Review of Systems: All systems reviewed & are unremarkable except as noted in HPI and below PMFSH Past Medical History Medical History (Updated 01/25/24 @ 13:25 by PAULINE Helm) Abnormal PET scan of colon Asthma Elevated diaphragm was causing GERD/cough. No breathing issues. Cough stopped after GERD treated GERD (gastroesophageal reflux disease) HTN (hypertension) RLS (restless legs syndrome) Family History Family History Mother Heart disease Sibling Asthma Depression Hypertension Other Asthma Grandparent Ovarian cancer Other Acute myocardial infarction Family history of emphysema Social History Social History Smoking packs per day: 2 Smoking cigarettes per day: 40.0 Years smoked: 40 Smoking pack-years: 80.00 Smoking status: Former smoker Tobacco type: cigarettes Smoking end date: 08/29/93 Alcohol intake: current Drinks per week: 1 Alcohol use details: per month Substance use: never Substance use type: does not use Living arrangements: alone Spiritual care concerns: No Meds Home Medications and Allergies Home Medications Medication Instructions Recorded Confirmed Type albuterol sulfate 90 mcg/actuation 1 inh inhalation QID PRN 09/05/19 03/02/24 History aerosol inhaler (ProAir HFA) difficulty breathing amitriptyline 50 mg tablet 50 mg PO DAILY 09/05/19 03/02/24 History calcium carbonate (Calcium 600) 600 mg PO DAILY 09/05/19 03/02/24 History cholecalciferol (vitamin D3) 25 25 mcg PO DAILY 09/05/19 03/02/24 History mcg (1,000 unit) capsule (Vitamin D3) diphenhydramine HCl 25 mg tablet 25 mg PO HS 09/05/19 03/02/24 History (Allergy) folic acid 0.8 mg capsule 0.8 mg PO DAILY 09/05/19 03/02/24 History glucosamine mejia dipot-chond mejia 1 cap PO DAILY 09/05/19 03/02/24 History sod-C-Mn 500 mg-400 mg-66 mg-3 mg cap vit C 250 mg-vit E 90 mg-zinc 40 1 cap PO DAILY 09/05/19 03/02/24 History mg-copper 1 [id number]-oxbcfs capsule (PreserVision AREDS-2) vitamin E 268 mg (400 unit) capsule 400 unit PO DAILY 09/05/19 03/02/24 History famotidine 10 mg tablet 40 mg PO DAILY 03/16/21 03/02/24 History fluticasone furoate 100 1 inh inhalation Q24H 03/16/21 03/02/24 History mcg-vilanterol 25 mcg/dose inhalation powder (Breo Ellipta) azelastine 137 mcg (0.1 %) nasal 1 spray intranasal Q12H #30 mL 11/24/23 03/02/24 Rx spray atorvastatin 10 mg tablet 10 mg PO HS 03/02/24 03/02/24 History losartan 25 mg tablet 25 mg PO DAILY 03/02/24 03/02/24 History ropinirole 0.25 mg tablet 0.25 mg PO HS 03/02/24 03/02/24 History Allergies Allergy/AdvReac Type Severity Reaction Status Date / Time Penicillins Allergy Unknown Rash Verified 03/14/24 14:35 Vital Signs Vital Signs - 24 hr 03/14/24 14:37 Temperature 97.1 F L Pulse Rate 84 Respiratory Rate 18 Blood Pressure 167/72 H Pulse Oximetry 100 Oxygen Delivery Room Air Exam Const: General: comfortable and no acute distress HENMT: Face/Nose/Sinus: Normal nares present Eyes: General: appearance normal, both eyes and all related structures Neck: Neck: no JVD
[2024-03-14 16:00] VITALS: BP 98/65; PULSE 78; RESP 23; O2SAT 98
[2024-03-14 16:10] VITALS: BP 129/64; PULSE 78; RESP 20; O2SAT 98
[2024-03-14 16:20] VITALS: BP 152/86; PULSE 76; RESP 19; O2SAT 96
== END 2024-03-14 16:28 | disposition home or self-care (01) ==
PROVIDERS: PCP Internal Medicine; Referring Provider Nurse Practitioner Family; Visit Provider Internal Medicine Gastroenterology
PROC: 0DJD8ZZ Inspection of Lower Intestinal Tract, Via Natural or Artificial Opening Endoscopic (ICD-10-PCS; CPT 45378; principal; 2024-03-14 15:30)
DX: K64.8 Other hemorrhoids (principal); K57.30 Diverticulosis of large intestine without perforation or abscess without bleeding; J45.909 Unspecified asthma, uncomplicated; K21.9 Gastro-esophageal reflux disease without esophagitis; I10 Essential (primary) hypertension; G25.81 Restless legs syndrome; Z79.51 Long term (current) use of inhaled steroids; Z87.891 Personal history of nicotine dependence; Z80.41 Family history of malignant neoplasm of ovary; Z82.49 Family history of ischemic heart disease and other diseases of the circulatory system
CPT/HCPCS: 45378; J2704; J7120

== ENCOUNTER 2025-02-05 22:29 | Emergency (ER) | payer MEDICARE, BC, SELFPAY ==
[2025-02-05 22:32] VITALS: BP 177/62; PULSE 75; RESP 16; TEMP 36.7; O2SAT 98
--- OUTSIDE RECORDS SUMMARY | 2025-02-05 22:32 | XMS_ITS ---
Author Organization [facility] Address [address] [place] [address] Care Team Providers Care Box Folding Machine Operator Name Role Phone Raymundo Chew MD Unavailable [phone] Aramis Greenfield NP Unavailable [phone] Charlette Carballo NP Primary Care Provider Juan Daniel Singletary MD Unavailable Jerry Wood MD Unavailable Rl Robledo MD Unavailable Zeny Cummings MD Unavailable [phone] Akbar Parker MD Unavailable [phone] Active Problems Problem Noted Date Diagnosed Date Malignant neoplasm of upper lobe, right bronchus or lung 12/01/2023 Cancer Staging:Clinical stage from 12/01/2023:Stage IA1(cT1a, cN0, cM0) - Signed by Flex Saldivar MD PhD on 12/01/2023 Chronic right-sided thoracic back pain Trigger point with back pain 10/24/2023 Myalgia 10/24/2023 Radiculopathy, lumbosacral region 10/24/2023 Pulmonary nodule 10/13/2023 Venous insufficiency 05/29/2020 Breast lump in female 04/11/2020 Asthma 03/27/2020 Assessment & Plan (01/17/2025 11:41 AM CDT): Stable overall, follow with Pulmonology. No changes today. Asymptomatic varicose veins of unspecified lower extremity 03/27/2020 Encounter for screening for cardiovascular disor ders 03/27/2020 Essential hypertension 03/27/2020 Assessment & Plan (01/17/2025 11:40 AM CDT): BP normal in office today, continues Losartan. Updated labs ordered. Family history of stroke 03/27/2020 Gastroesophageal reflux disease 03/27/2020 Restless leg syndrome 03/27/2020 Assessment & Plan (01/17/2025 11:40 AM CDT): Following with specialist, on Gabapentin but does not feel it is helping. Has failed Amitriptyline and Ropinirole. She will be reaching out to specialist. Varicose veins of left lower extremity 0 Chronic cough 04/04/2019 Assessment & Plan (04/04/2019 11:39 AM CDT): This is a pleasant 73-year-old female whose had a history of a chronic cough for several years. In conjunction with the patient's cough patient is also experiencing perceived postnasal drainage, frequent throat clearing of thick mucus, globus sensation with swallowing, and episodic hoarseness. Patient states that her coughing spells occur more frequently at night. These are classic symptoms of poorly controlled extra esophageal reflux, otherwise known as Laryngopharyngeal reflux. Patient was taking omeprazole 20 mg nightly. This is not adequate for symptomatic reflux and it is being taken at the wrong time of day. Patient will be scheduled for a barium swallow esophagram to look for any intrinsic pathology contributing to her symptoms. Laryngopharyngeal reflux (LPR) 04/04/2019 Assessment & Plan (04/04/2019 11:39 AM CDT): Patient is advised to discontinue omeprazole 20 mg. Patient will start Ranitidine 300 mg b.i.d. Patient was provided with educational material regarding reflux precautions. Patient was instructed to refrain from eating a meal approximately 3 hours prior to bedtime. Patient was instructed to elevate the head of the bed by approximately 8 inches. Patient was to refrain from consuming spicy greasy fatty foods, dairy products, and excessive caffeine use. Patient was also advised to increase water consumption. Patient was also instructed on weight reduction and exercise regimen. Patient was also instructed on the importance of compliance with medications. Current Treatment and Therapy Plans No current plan information found. Past Treatment and Therapy Plans No past plan information found. Lifetime Dose Tracking * Chemical Lifetime Dose Automatic Entry Manual Entr y Fluoro Time 6.2 minutes 6.2 minutes 0 minutes Air kerma at the reference point (Ka,r) 17.5 mGy 1 7.5 mGy 0 mGy
--- OUTSIDE RECORDS SUMMARY | 2025-02-05 22:32 | XMS_ITS | Clinical Summary ---
Author Organization [facility] Healthcare Address [address] [place] [address] Care Team Providers Care Reservation Sales Agent Name Role Phone Raymundo Chew MD Unavailable Aramis Greenfield NP Unavailable [phone] Charlette Carballo NP Primary Care Provider [phone] uJan Daniel Singletary MD Unavailable Jerry Wood MD Unavailable Rl Robledo MD Unavailable Zeny Cummings MD Unavailable [phone] Akbar Parker MD Unavailable [phone] Allergies Active Allergy Reactions Criticality Noted Date Comments Adhesive Rash Medium 03/27/2020 Lisinopril Cough Low 12/02/2023 Omeprazole Muscle pain Medium 04/16/2024 Muscle cramps Penicillins Swelling Medium 04/04/2019 Medications aspirin 81 mg enteric coated tablet Take 1 tablet (81 mg total) by mouth daily Active calcium carbonate (CALCIUM 600 ORAL) Take by mouth Active cholecalcifero l (VITAMIN D-3) 1,000 unit capsule Take 1 capsule (1,000 Units total) by mouth daily Active vitamin E 400 unit capsule Take 1 capsule (400 Units total) by mouth daily Active vit A/C/E ac/ZnOx/cupric oxide (EYE VITAMIN AND MINERALS ORAL) Take by mouth A ctive Breo Ellipta 100-25 mcg/dose diskus inhaler Inhale 1 puff daily 1000mcg/25mcg 02/04/20 20 Active terbinafine (LamiSIL) 250 mg tablet 04/12/20 24 Active mirabegron ER (MYRBETRIQ) 25 mg tablet extended release 24 hr Take 1 tablet (25 mg total) by mouth daily 90 tablet 1 01/18/20 25 Active atorvastatin (LIPITOR) 10 mg tablet Take 1 tablet (10 mg total) by mouth daily 90 tablet 2 01/18/20 25 Active losartan (COZAAR) 25 mg tablet Take 1 tablet (25 mg total) by mouth daily 90 tablet 2 01/18/20 25 Active albuterol HFA (PROVENTIL HFA,VENTOLIN HFA,PROAIR HFA) 90 mcg/actuation inhaler Inhale 2 puffs every 6 (six) hours as needed for wheezing or shortness of breath 54 g 1 01/18/20 25 Active fluticasone propionate (Flonase Allergy Relief) 50 mcg/actuation nasal spray Administer 2 sprays into each nostril daily 48 g 1 01/18/20 25 Active famotidine (PEPCID) 40 mg tablet Take 0.5 tablets (20 mg total) by mouth 2 (two) times a day 180 tablet 1 01/19/20 25 Active gabapentin (NEURONTIN) 100 mg capsule Activ e rOPINIRole (REQUIP) 0.5 mg tablet Take 1 tablet (0.5 mg total) by mouth daily 11/27/19 25 Active gabapentin (NEURONTIN) 100 mg capsule Take 5 (100mg) capsules nightly and 1 (100mg) capsule daily PRN 540 capsule 02/06/20 25 Active atorvastatin (LIPITOR) 10 mg tablet Take 1 tablet (10 mg total) by mouth daily 02/12/20 19 025 Discontinued(Re order) albuterol HFA (PROVENTIL HFA,VENTOLIN HFA,PROAIR HFA) 90 mcg/actuation inhaler 01/08/20 20 025 Discontinued(Re order) amitriptyline (ELAVIL) 50 mg tablet 10/28/19 22 025 Discontinued(Praveen kenny Reported) losartan (COZAAR) 25 mg tablet Take 1 tablet (25 mg total) by mouth daily 10/18/19 24 025 Discontinued(Re order) famotidine (PEPCID) 40 mg tablet 0.5 tablets (20 mg total) 02/04/20 24 025 Discontinued(Re order) gabapentin (NEURONTIN) 100 mg capsuleIndicat ions:Restless Legs Syndrome Take up to three pills po qhs prn RLS 270 capsule 1 12/12/19 25 025 Discontinued(Re order) fluticasone propionate (FLONASE ALLERGY RELIEF NASL) 12/02/19 24 025 Discontinued(Re order) famotidine (PEPCID) 20 mg tablet Take 1 tablet (20 mg total) by mouth 2 (two) times a day 180 tablet 2 01/18/20 25 025 Discontinued(Re order) famotidine (PEPCID) 40 mg tablet Take 0.5 tablets (20 mg total) by mouth 2 (two) times a day 180 tablet 1 01/19/20 25 025 Discontinued gabapentin (NEURONTIN) 100 mg capsuleIndicat ions:Restless Legs Syndrome Take up to five pills po qhs prn RLS 450 capsule 1 01/25/20 025 Discontinued Active Problems Problem Noted Date Diagnosed Date [...] on the importance of compliance with medications. Encounters Date Type Department Care Team Description 02/04/2025 9:30 AM CDT Ancillary Procedure [facility] Imaging at [address] [address] Accidental fall, initial encounter 02/04/2025 9:25 AM CDT Ancillary Procedure [facility] Imaging at [address] [phone] Accidental fall, initial encounter 02/04/2025 9:20 AM CDT Ancillary Procedure [facility] Imaging at [address] [phone] Accidental fall, initial encounter 02/04/2025 9:15 AM CDT Office Visit [facility] Convenient Care at [address] [phone] Grayson Yates NP Accidental fall, initial encounter (Primary Dx) 02/04/2025 Telephone [facility] Surgery [id number] [place] [address] [address] [place] [address] Rajni Bob LPN HAND/WRIST FRACTURE 02/04/2025 Telephone [facility] Orthopedics and Sports Medicine [address] [place] [address] [address], [place] [phone] Yoni Gallego MD 02/04/2025 Results Follow-Up [facility] at [address] [phone] Grayson Yates NP XR Wrist Right 3+ Vw 01/18/2025 Orders Only [facility] Primary Care at [address] [phone] Charlette Carballo NP 01/18/2025 Telephone [facility] Primary Care at [address] [phone] Charlette Carballo NP Med Refill 01/17/2025 10:45 AM CDT Ancillary Procedure [facility] Imaging at [address] [phone] Chronic pain of right knee 01/17/2025 10:15 AM CDT Lab [facility] Outpatient Lab at [address] [phone] 01/17/2025 10:14 AM CDT - 01/17/2025 11:59 PM CDT Hospital Encounter [facility] [id number] [place] [address] OAB (overactive bladder); Essential hypertension; Vitamin D deficiency; Encounter for screening examination for intermediate hyperglycemia and diabetes mellitus Discharge Disposition: Discharge to home or self care 01/17/2025 9:30 AM CDT Office Visit [facility] Primary Care at [address] [phone] Charlette Carballo NP Essential hypertension (Primary Dx); OAB (overactive bladder); Chronic pain of right knee; Restless leg syndrome; Vitamin D deficiency; Encounter for screening examination for intermediate hyperglycemia and diabetes mellitus; Moderate persistent asthma without complication; Sleep disturbances; Cold intolerance 01/17/2025 Results Follow-Up [facility] Primary Care at [address] [phone] Charlette Carballo NP XR Knee Right 4+ Vw, Urinalysis reflex to microscopic and culture Urine, bladder, CBC with auto differential, Additional followed-up results: 8 01/09/2025 1:00 PM CDT Office Visit [facility] Cardiology [address] [place] [address] Jerry Wood MD Essential hypertension (Primary Dx); Diastolic dysfunction; Venous insufficiency; Status post ablation of incompetent vein using laser; Lipid screening 12/11/2024 Orders Only [facility] Neuro Sleep [address] [facility] [address] [place] [address] Paul Parker MD 12/06/2024 9:23 AM CDT - 12/06/2024 11:59 PM CDT Hospital Encounter [facility] Imaging and Radiology [address] [place] [address] Solitary pulmonary nodule Discharge Disposition: Discharge to home or self care 11/29/2024 Telephone [facility] Scheduling [address] [place] [address] Paul Parker MD 11/26/2024 7:47 AM CDT - 11/26/2024 11:59 PM CDT Hospital Encounter [facility] Imaging and Radiology [address] [place] [address] Screening mammogram, encounter for Discharge Disposition: Discharge to home or self care 11/05/2024 9:00 AM CDT Office Visit [facility] Orthopedic and Sports Medicine [facility] [place] [address] Raymundo Fraire PA Glenohumeral arthritis, right (Primary Dx); Glenohumeral arthritis, left; Rotator cuff tendinitis, right; Tendonitis of left rotator cuff from Last 3 Months Immunizations Immunization Administration Dates Next Due Hep B Vaccine 02/02/2016,01/05/2016,01/05/2016 Influenza, Trivalent, High D ose, Split, Preservative Free, Intramuscular 05/07/2019,05/14/2018,05/13/2018 Influenza, Unspecified 05/19/2024,2022,05/07/2022,05/25,04/24/2020,05/28/2019 Pneumococcal Conjugate PCV 13 08/11/2021 Pneumococcal Polysaccharide PPV23 03/24/2020,,09/28/2011 RSV Vaccine, Pref, Recombina nt, Subunit, Adjuvanted, PF, IM (Arexvy) 05/20/2023 Sars-CoV-2, Unspecified 01/01/2023,05/07,10/26/2021,05/25,08/28/2020,07/28/2020 Tdap 01/13/2016 ZOSTER Recombinant 03/24/2020 Zoster, unspecified 05/25/2020,03/23/2020,2017 Surgical History Surgery Date Site/Laterality Comments SINUS SURGERY EXTERNAL FRONTAL ETHMOIDECTOMY LITHOTRIPSY COMBINED ABDOMINOPLASTY AND LIPOSUCTION UVULOPALATOPHARYNGOPLASTY OVARIAN CYSTECTOMY RETINAL DETACHMENT SURGERY BREAST BIOPSY HYSTERECTOMY APPENDECTOMY CORRECTION HAMMER TOE MOLE REMOVAL NASAL POLYP SURGERY SKIN CANCER EXCISION CORRECTION HAMMER TOE EXTRACORPOREAL SHOCK WAVE LITHOTRIPSY ABDOMINOPLASTY COSMETIC SURGERY 01/2017 COLONOSCOPY Medical History Medical History Date Comments Asthma Skin cancer IBS (irritable bowel syndrome) Laryngopharyngeal reflux (LPR) Macular degeneration IBS (irritable bowel syndrome) Skin cancer Hypertension Hypercholesteremia Osteoarthritis Diverticulitis GERD (gastroesophageal reflux disease) 06/2018 Osteoporosis 04/2016 Cataract Family History Medical History Relation Name Comments Bone cancer Brother 1 Kidney cancer Brother 1 Cancer Brother 2 Teo Carmona Prostate cancer Maternal Grandfather Cancer Maternal Grandmother Liz Rivera Uterine cancer Maternal Grandmother Liz Rivera Arthritis Mother Zaria Carmona Early Mother Zaria Carmona Vision loss Mother Zaria Carmona Alcohol abuse Mother's Sister 1 Erica Breast cancer Mother's Sister 1 Erica COPD Mother's Sister 1 Erica Liver cancer Mother's Sister 1 Erica Alcohol abuse Mother's Sister 2 Kylee Emphysema Mother's Sister 2 Kylee Breast cancer Mother's Sister 3 Leukemia Mother's Sister 3 Lymphoma Nephew Arthritis Other Cancer Other Heart disease Other Hypertension Other Cancer Paternal Grandfather Jorge Raeicofe Hypertension Sister Toña Ovarian cancer Neg Hx Pancreatic cancer Neg Hx Relation Name Status Comments Brother 1 Brother 2 Teo Carmona Maternal Grandfather Maternal Grandmother Liz Rivera Mother Zaria Carmona Mother's Sister 1 Erica Mother's Sister 2 Kylee Mother's Sister 3 Nephew Other Paternal Grandfather Jorge Caricofe Sister Toña Social History Tobacco Use Types Packs/Day Years Used Date Smoking Tobacco: Former Cigarettes 1.5 30 1 08/29/1963 - 06/29/1994 Smokeless Tobacco: Never Tobacco Cessation:Counseling Given: Not Answered Alcohol Use Standard Drinks/Week Comments Yes 0 (1 standard drink = 0.6 oz pur e alcohol) AUDIT-C Answer Date Recorded Q1: How often do you have a drink containing alc ohol? Monthly or less 04/25/2024 Q2: How many drinks containi ng alcohol do you have on a typical day when you are drinking? 1 or 2 04/25/2024 Q3: How often do you have si x or more drinks on one occasion? Monthly 04/25/2024 PHQ-2 Answer Date Recorded PHQ-2 Total Score (If total score is 3 or more points, staff should administer the PHQ-9) 0 01/17/2025 Personal Safety Answer Date Recorded Have you ever been in or are you currently in a harmful physical or emotional relationship or is someone making you feel afraid or unsafe? Denies 10/28/2023 Comments No Sex and Gender Information Value Date Recorded Sex Assigned at Not on file Legal Sex Female 12:57 PM [employer] Gender Identity Female 03/31/2022 9:21 AM CDT Sexual Orientation Not on file Obstetrics History Para Term AB IAB SAB Ectopic Multiple Livin g Live Births 0 0 0 0 0 0 0 0 0 0 0 Last Filed Vital Signs Vital Sign Reading Time Taken Comments Blood Pressure 125/78 02/04/2025 9:10 AM CDT Pulse 80 02/04/2025 9:10 AM CDT Temperature 36.4 C (97.5 F) 02/04/2025 9:10 AM CDT Respiratory Rate 21 02/04/2025 9:10 AM CDT Oxygen Saturation 98% 02/04/2025 9:10 AM CDT Inhaled Oxygen Concentration - - Weight 74.8 kg (165 lb) 02/04/2025 9:10 AM CDT Height 172.7 cm (5' 8) 02/04/2025 9:10 AM CDT Body Mass Index 25.09 02/04/2025 9:10 AM CDT Plan of Treatment Health Maintenance Due Date Last Done Comments Well Visit 65+ 2009 DTaP/Tdap/Td Vaccine (2 - Td or Tdap) 01/12/2026 01/13/2016 Depression Screening 01/17/2026 01/17/2025 Fall Risk Assessment 01/17/2026 01/17/2025, 05/07/20 24 Osteoporosis Screening-Bone Density Scan 01/23/2026 01/24/2024, 12/14/2023 Hepatitis B Screening Completed 02/02/2016 , 01/05/2016, 01/05/2016 Zoster Vaccine Completed 05/25/2020, 02/27, 03/23/2020, Additional history exists Pneumococcal vaccine 65+ Completed 021, 03/24/2020, 03/23/2020, Additional history exists Influenza Vaccine Completed 05/19/2024, , 05/07/2022, Additional history exists Procedures Procedure Name Priority Date/Time Associated Diagnosis Comments XR RADIUS ULNA RIGHT 2 VIEWS Schedule CARLEEN, Read CARLEEN (Appt Today, Awaiting Results) 02/04/2025 9:25 AM CDT Accidental fall, initial encounter XR HAND RIGHT 3 OR MORE VIEWS Schedule CARLEEN, Read CARLEEN (Appt Today, Awaiting Results) 02/04/2025 9:25 AM CDT Accidental fall, initial encounter XR WRIST RIGHT 3 OR MORE VIEWS Schedule CARLEEN, Read CARLEEN (Appt Today, Awaiting Results) 02/04/2025 9:24 AM CDT Accidental fall, initial encounter XR KNEE RIGHT 4 OR MORE VIEWS Schedule Routine, Read Routine (OP Routine) 01/17/2025 10:17 AM CDT Chronic pain of right knee URINALYSIS, MICROSCOPIC ONLY Routine 01/17/2025 10:14 AM CDT OAB (overactive bladder) EGFR Routine 01/17/2025 10:14 AM CDT Essential hypertension DIFFERENTIAL AUTO Routine 01/17/2025 10:14 AM CDT Essential hypertension HEMOGLOBIN A1C Routine 01/17/2025 10:14 AM CDT Encounter for screening examination for intermediate hyperglycemia and diabetes mellitus VITAMIN D 25 HYDROXY Routine 01/17/2025 10:14 AM CDT Vitamin D deficiency THYROID FUNCTION CASCADE Routine 01/17/2025 10:14 AM CDT Essential hypertension LIPID PANEL Routine 01/17/2025 10:14 AM CDT Essential hypertension COMPREHENSIVE METABOLIC PANEL Routine 01/17/2025 10:14 AM CDT Essential hypertension CBC WITH AUTO DIFFERENTIAL Routine 01/17/2025 10:14 AM CDT Essential hypertension URINALYSIS AND REFLEX TO MICROSCOPIC AND CULTURE Routine 01/17/2025 10:14 AM CDT OAB (overactive bladder) POCT LIPID PANEL Routine 01/09/2025 12:50 PM CDT Lipid screening CT CHEST WO CONTRAST Schedule Routine, Read Routine (OP Routine) 12/06/2024 9:46 AM CDT Solitary pulmonary nodule SCREENING MAMMOGRAM BILATERAL W DREAD Schedule Routine, Read Routine (OP Routine) 11/26/2024 8:08 AM CDT Screening mammogram, encounter for RI ARTHROCENTESIS ASPIR&/INJ MAJOR JT/BURSA W/O US Routine 11/05/2024 9:00 AM CDT Glenohumeral arthritis, right Glenohumeral arthritis, left Rotator cuff tendinitis, right Tendonitis of left rotator cuff HM DEXA SCAN Routine 01/24/2024 8:21 AM CDT from Last 3 Months or Most Recently Relevant to Health Maintenance Results * XR Forearm Right 2 Vw (02/04/2025 9:25 AM CDT) Anatomical Region Laterality Modality Upper Extremities, Forearm Right Digit al Radiography 02/04/2025 10:1 9 AM CDT Narrative 02/04/2025 10:22 AM CDT EXAM DESCRIPTION: XR HAND RIGHT 3 OR MORE VIEWS; XR RADIUS ULNA RIGHT 2 VIEWS; XR WRIST RIGHT 3 OR MORE VIEWS REASON FOR STUDY: Fall on Tuesday, generalized pain to the right hand, forearm, and wrist. Prior tendonitis per patient. TECHNIQUE: Three views right hand. Three views right wrist. Two views right forearm. COMPARISON: Right hand radiograph 03/21/2024. FINDINGS: Right hand: No evidence of an acute fracture. There are features which suggest erosive osteoarthritis with gull-wing type osteophytosis, this is most pronounced of the 3rd proximal and distal and 5th proximal and distal interphalangeal joints similar to the prior study. Right wrist: There is the lucency of the radial styloid process likely an acute or subacute fracture. Radiocarpal alignment maintained. Arthritic change most pronounced of the triscaphe joint. Right radius and ulna: No acute fracture or dislocation. Radial head neck appear intact. IMPRESSION: Acute or subacute fracture of the radial styloid process. No other acute osseous abnormality of the right hand, wrist, or forearm. 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 THIS IS AN ELECTRONICALLY VERIFIED FINAL REPORT 02/04/2025 10:22 AM - Electronically signed by Javier Ortega M.D. T: Report ID: [id number] Reading Location: [id number] Procedure Note Javier Ortega Jr., MD - 02/04/2025 EXAM DESCRIPTION: XR HAND RIGHT 3 OR MORE VIEWS; XR RADIUS ULNA RIGHT 2VIEWS; XR WRIST RIGHT 3 OR MORE VIEWS REASON FOR STUDY: Fall on Tuesday, generalized pain to the right hand,forearm, and wrist. Prior tendonitis per patient. TECHNIQUE: Three views right hand. Three views right wrist. Two viewsright forearm. COMPARISON: Right hand radiograph 03/21/2024. FINDINGS: Right hand: No evidence of an acute fracture. There arefeatures which suggest erosive osteoarthritis with gull-wing type osteophytosis,this is most pronounced of the 3rd proximal and distal and 5th proximal anddistal interphalangeal joints similar to the prior study. Right wrist: There is the lucency of the radial styloid process likely an acute or subacute fracture. Radiocarpal alignment maintained. Arthritic change most pronounced of the triscaphe joint. Right radius and ulna: No acute fracture or dislocation. Radial head neck appear intact. IMPRESSION: Acute or subacute fracture of the radial styloid process. No other acute osseous abnormality of the right hand, wrist, orforearm. 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 THIS IS AN ELECTRONICALLY VERIFIED FINAL REPORT 02/04/2025 10:22 AM - Electronically signed by Javier Ortega M.D. T: Report ID: [id number] Reading Location: [id number] Grayson Yates NP IMG XR PROCEDURES Final Result * XR Hand Right 3 or More Views (02/04/2025 9:25 AM CDT) Anatomical Region Laterality Modality Upper Extremities, Hand Right Digital Radiography 02/04/2025 10:1 9 AM CDT Narrative 02/04/2025 10:22 AM CDT EXAM DESCRIPTION: XR HAND RIGHT 3 OR MORE VIEWS; XR RADIUS ULNA RIGHT 2 VIEWS; XR WRIST RIGHT 3 OR MORE VIEWS REASON FOR STUDY: Fall on [place], generalized pain to the right hand, forearm, and wrist. Prior tendonitis per patient. TECHNIQUE: Three views right hand. Three views right wrist. Two views right forearm. COMPARISON: Right hand radiograph 03/21/2024. FINDINGS: Right hand: No evidence of an acute fracture. There are features which suggest erosive osteoarthritis with gull-wing type osteophytosis, this is most pronounced of the 3rd proximal and distal and 5th proximal and distal interphalangeal joints similar to the prior study. Right wrist: There is the lucency of the radial styloid process likely an acute or subacute fracture. Radiocarpal alignment maintained. Arthritic change most pronounced of the triscaphe joint. Right radius and ulna: No acute fracture or dislocation. Radial head neck appear intact. IMPRESSION: Acute or subacute fracture of the radial styloid process. No other acute osseous abnormality of the right hand, wrist, or forearm. 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 THIS IS AN ELECTRONICALLY VERIFIED FINAL REPORT 02/04/2025 10:22 AM - Electronically signed by Javier Ortega M.D. T: Report ID: [id number] Reading Location: [place] [address] Procedure Note Javier Ortega Jr., MD - 02/04/2025 EXAM DESCRIPTION: XR HAND RIGHT 3 OR MORE VIEWS; XR RADIUS ULNA RIGHT 2VIEWS; XR WRIST RIGHT 3 OR MORE VIEWS REASON FOR STUDY: Fall on [place], generalized pain to the right hand,forearm, and wrist. Prior tendonitis per patient. TECHNIQUE: Three views right hand. Three views right wrist. Two viewsright forearm. COMPARISON: Right hand radiograph 03/21/2024. FINDINGS: Right hand: No evidence of an acute fracture. There arefeatures which suggest erosive osteoarthritis with gull-wing type osteophytosis,this is most pronounced of the 3rd proximal and distal and 5th proximal anddistal interphalangeal joints similar to the prior study. Right wrist: There is the lucency of the radial styloid process likely an acute or subacute fracture. Radiocarpal alignment maintained. Arthritic change most pronounced of the triscaphe joint. Right radius and ulna: No acute fracture or dislocation. Radial head neck appear intact. IMPRESSION: Acute or subacute fracture of the radial styloid process. No other acute osseous abnormality of the right hand, wrist, orforearm. 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 THIS IS AN ELECTRONICALLY VERIFIED FINAL REPORT 02/04/2025 10:22 AM - Electronically signed by Javier Ortega M.D. T: Report ID: [id number] Reading Location: [id number] Grayson Yates NP IMG XR PROCEDURES Final Result * XR Wrist Right 3+ Vw (02/04/2025 9:24 AM CDT) Anatomical Region Laterality Modality Upper Extremities, Wrist Right Digital Radiography 02/04/2025 10:1 9 AM CDT Narrative 02/04/2025 10:22 AM CDT EXAM DESCRIPTION: XR HAND RIGHT 3 OR MORE VIEWS; XR RADIUS ULNA RIGHT 2 VIEWS; XR WRIST RIGHT 3 OR MORE VIEWS REASON FOR STUDY: Fall on Tuesday, generalized pain to the right hand, forearm, and wrist. Prior tendonitis per patient. TECHNIQUE: Three views right hand. Three views right wrist. Two views right forearm. COMPARISON: Right hand radiograph 03/21/2024. FINDINGS: Right hand: No evidence of an acute fracture. There are features which suggest erosive osteoarthritis with gull-wing type osteophytosis, this is most pronounced of the 3rd proximal and distal and 5th proximal and distal interphalangeal joints similar to the prior study. Right wrist: There is the lucency of the radial styloid process likely an acute or subacute fracture. Radiocarpal alignment maintained. Arthritic change most pronounced of the triscaphe joint. Right radius and ulna: No acute fracture or dislocation. Radial head neck appear intact. IMPRESSION: Acute or subacute fracture of the radial styloid process. No other acute osseous abnormality of the right hand, wrist, or forearm. 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 THIS IS AN ELECTRONICALLY VERIFIED FINAL REPORT 02/04/2025 10:22 AM - Electronically signed by Javier Ortega M.D. T: Report ID: [id number] Reading Location: [id number] Procedure Note Javier Ortega Jr., MD - 02/04/2025 EXAM DESCRIPTION: XR HAND RIGHT 3 OR MORE VIEWS; XR RADIUS ULNA RIGHT 2VIEWS; XR WRIST RIGHT 3 OR MORE VIEWS REASON FOR STUDY: Fall on Tuesday, generalized pain to the right hand,forearm, and wrist. Prior tendonitis per patient. TECHNIQUE: Three views right hand. Three views right wrist. Two viewsright forearm. COMPARISON: Right hand radiograph 03/21/2024. FINDINGS: Right hand: No evidence of an acute fracture. There arefeatures which suggest erosive osteoarthritis with gull-wing type osteophytosis,this is most pronounced of the 3rd proximal and distal and 5th proximal anddistal interphalangeal joints similar to the prior study. Right wrist: There is the lucency of the radial styloid process likely an acute or subacute fracture. Radiocarpal alignment maintained. Arthritic change most pronounced of the triscaphe joint. Right radius and ulna: No acute fracture or dislocation. Radial head neck appear intact. IMPRESSION: Acute or subacute fracture of the radial styloid process. No other acute osseous abnormality of the right hand, wrist, orforearm. 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 THIS IS AN ELECTRONICALLY VERIFIED FINAL REPORT 02/04/2025 10:22 AM - Electronically signed by Javier Ortega M.D. T: Report ID: [id number] Reading Location: [place] [address] Grayson Yates NP IMG XR PROCEDURES Final Result * XR Knee Right 4+ Vw (01/17/2025 10:17 AM CDT) Anatomical Region Laterality Modality Lower Extremities, Knee Right Digital Radiography 01/17/2025 1:38 PM CDT Narrative 01/17/2025 1:39 PM CDT EXAM DESCRIPTION: XR KNEE RIGHT 4 OR MORE VIEWS REASON FOR STUDY: Right knee pain, worsening Pt complains of right knee pain x 1 month. No known injury or prior surgery FINDINGS: Four views submitted without comparison. No acute fracture. Alignment is normal. Mild patellofemoral compartment osteoarthritis. Small effusion. IMPRESSION: Mild patellofemoral compartment right knee osteoarthritis with a small effusion. THIS IS AN ELECTRONICALLY VERIFIED FINAL REPORT 01/17/2025 1:39 PM - Electronically signed by Shaun Cantu M.D. T: Report ID: [id number] Reading Location: [place] [address] Procedure Note Shaun Cantu MD - 01/17/2025 EXAM DESCRIPTION: XR KNEE RIGHT 4 OR MORE VIEWS REASON FOR STUDY: Right knee pain, worsening Pt complains of right knee pain x 1 month. No known injury or priorsurgery FINDINGS: Four views submitted without comparison. No acute fracture. Alignment is normal. Mild patellofemoral compartment osteoarthritis. Small effusion. IMPRESSION: Mild patellofemoral compartment right knee osteoarthritis with a small effusion. THIS IS AN ELECTRONICALLY VERIFIED FINAL REPORT 01/17/2025 1:39 PM - Electronically signed by Shaun Cantu M.D. T: Report ID: [id number] Reading Location: [place] [address] Charlette Carballo NP IMG XR PROCEDURES Final Result * eGFR (01/17/2025 10:14 AM CDT) eGFR 70 >=60 mL/min/1. 73 m2 Comment: Interpretive Data Reference Interval Normal >/= 90 mL/min/1.73m2 Mildly decreased* 60 - 89 mL/min/1.73m2 Mildly to moderately decreased 45 - 59 mL/min/1.73m2 Moderately to severely decreased 30 - 44 mL/min/1.73m2 Severely decreased 15 - 29 mL/min/1.73m2 Kidney Failure < 15 mL/min/1.73m2 *Relative to young adult level Estimated glomerular filtration rate is determined by the 2020 CKD-EPI equation recommended by the National Kidney Foundation (A Unifying Approach to GFR Estimation: Recommendations of the NKF-ASK Task Force on Reassessing the Inclusion of Race in Diagnosing Kidney Disease, JASN 2020). The CKD-EPI equation should not be used for patients with unstable renal function and has not been validated in children and those over 70. Current interpretive data was last reviewed 2021. Blood 01/17/2025 10:1 4 AM CDT 01/17/2025 8:15 PM CDT us Charlette Carballo [employer] LAB BLOOD ORDERABLES Final Resul t [facility] [address] Department [place] [address] * Differential, auto (01/17/2025 10:14 AM CDT) Neutrophil abs 3.36 1.50 - 6.50 K/cumm Imm gran abs 0.02 0.00 - 0.10 K/cumm [facility] Lymphocyte abs 1.27 0.80 - 3.30 K/cumm [facility] Monocyte abs 0.66 0.20 - 0.80 K/cumm [facility] Eosinophil abs 0.17 0.00 - 0.50 K/cumm [facility] Basophil abs 0.06 0.00 - 0.10 K/cumm [facility] Neutrophil pct 60.6 % [facility] Comment: Interpretive Data Percent cell count reference ranges are not reported, since discordance with absolute values may lead to misinterpretation of CBC data. Current Interpretive Data was last revised on 2017. Imm gran pct 0.4 % [facility] Comment: Interpretive Data Percent cell count reference ranges are not reported, since discordance with absolute values may lead to misinterpretation of CBC data. Current Interpretive Data was last revised on 2017. Lymphocyte pct 22.9 % [facility] Comment: Interpretive Data Percent cell count reference ranges are not reported, since discordance with absolute values may lead to misinterpretation of CBC data. Current Interpretive Data was last revised on 2017. Monocyte pct 11.9 % [facility] Comment: Interpretive Data Percent cell count reference ranges are not reported, since discordance with absolute values may lead to misinterpretation of CBC data. Current Interpretive Data was last revised on 2017. Eosinophil pct 3.1 % [facility] Comment: Interpretive Data Percent cell count reference ranges are not reported, since discordance with absolute values may lead to misinterpretation of CBC data. Current Interpretive Data was last revised on 2017. Basophil pct 1.1 % [facility] Comment: Interpretive Data Percent cell count reference ranges are not reported, since discordance with absolute values may lead to misinterpretation of CBC data. Current Interpretive Data was last revised on 2017. Blood 01/17/2025 10:1 4 AM CDT 01/17/2025 8:11 PM CDT us Charlette Carballo NP LAB BLOOD ORDERABLES Final Resul t Performing Organization Address [facility] de Phone Number [facility] [address] Department [place] [address] * Thyroid Function [place] (01/17/2025 10:14 AM CDT) TSH 1.44 0.30 - 4.20 mcIUnit/mL Blood 01/17/2025 10:1 4 AM CDT 01/17/2025 8:11 PM CDT us Charlette Carballo NP LAB BLOOD ORDERABLES Final Resul t Performing Organization Address [facility] de Phone Number [facility] [address] Department [place] [address] * (ABNORMAL) Urinalysis reflex to microscopic and culture Urine, bladder (01/17/2025 10:14 AM CDT) Color, ur Yellow Yellow Clarity, ur Clear Clear [facility] Specific gravity, ur 1.024 1.003 - 1.030 [facility] pH, urine 6.0 [facility] Comment: Interpretive Data U rine pH is affected by diet, medications, systemic acid-base disturbances, and renal tubular function. pH may affect urinary stone formation. For example, urine pH below 6.0 may help reduce the tendency for calcium phosphate stones and pH greater than 6.0 may reduce the tendency for uric acid stone formation. Source: [facility] Current Interpretive Data was last revised on 2017 Protein, ur ql Trace Negative [facility] Glucose, ur ql Negative Negative [facility] Ketones, ur Negative Negative [facility] Bilirubin, ur Negative Negative [facility] Blood, ur Negative Negative [facility] Urobilinogen, ur <2.0 <2.0 mg/dL [facility] Nitrite, ur Negative Negative [facility] Leukocyte esterase, ur 2+(A) Negative [facility] UA reflex comment Reflex to microscopic UA will be performed. [facility] Urine, bladder 01/17/2025 10 :14 AM CDT 01/17/2025 8:11 PM CDT us Charlette Carballo NP LAB MICROBIOLOGY - GENERAL ORDER MELISSA Final Result [facility] [address] Department [place] [address] * (ABNORMAL) CBC with auto differential (01/17/2025 10:14 AM CDT) WBC 5.54 3.80 - 9.90 K/cumm Hgb 12.6 11.9 - 15.5 g/dL [facility] Hct 41.5 35.6 - 45.5 % [facility] Plt 275 150 - 400 K/cumm [facility] MPV 10.6 9.1 - 12.3 fL [facility] RBC 4.23 3.90 - 5.20 M/cumm [facility] MCV 98.1(H) 81.3 - 96.4 fL [facility] MCH 29.8 27.1 - 33.3 pg [facility] MCHC 30.4(L) 32.3 - 35.7 g/dL [facility] RDW CV 13.5 11.1 - 14.9 % [facility] RDW SD 49.5(H) 35.7 - 48.1 fL [facility] NRBC abs 0.00 0.00 - 0.01 K/cumm [facility] Blood 01/17/2025 10:1 4 AM CDT 01/17/2025 8:11 PM CDT us Charlette Carballo [employer] LAB BLOOD ORDERABLES Final Resul t Performing Organization Address [facility] de Phone Number [facility] [address] Department [facility] [place], [place] [id number] * Vitamin D 25 hydroxy (01/17/2025 10:14 AM CDT) Vitamin D 25-OH 35 30 - 80 ng/mL Blood 01/17/2025 10:1 4 AM CDT 01/17/2025 8:11 PM CDT us Charlette Carballo NP LAB BLOOD ORDERABLES Final Resul t Performing Organization Address [facility] de Phone Number [facility] [address] Department [place] [address] * (ABNORMAL) Urinalysis, microscopic only (01/17/2025 10:14 AM CDT) WBC, ur 0-5 0 - 5 /HPF RBC, ur 0-2 0 - 2 /HPF [facility] Epithelial cells, squamous, ur 1-5 0 - 5 /HPF [facility] Mucous, ur Present(A) [facility] Culture Reflex Comment Reflex conditions for urine culture (WBC >10) not met. [facility] Urine, bladder 01/17/2025 10 :14 AM CDT 01/17/2025 8:11 PM CDT us Charlette Carballo [employer] LAB URINE ORDERABLES Final Resul t Performing Organization Address [facility] Co de Phone Number [facility] [address] [facility] [place] [address] * (ABNORMAL) Hemoglobin A1c (01/17/2025 10:14 AM CDT) Hgb A1C 6.1(H) 4.0 - 5.6 % Estimated Average Glucose 128 mg/dL [facility] Comment: The ADA recommends reporting an estimated Average Glucose (eAG) with all Hemoglobin A1c results using the equation derived from a study of 507 normal and diabetic adults. Minority populations were underrepresented and children were not included. (Diabetes Care 31:5500-6337, 2008). The eAG is not equivalent to a fasting glucose. Blood 01/17/2025 10:1 4 AM CDT 01/17/2025 8:11 PM CDT us Charlette Carballo [employer] LAB BLOOD ORDERABLES Final Resul t [facility] [address] Department [place] [address] * (ABNORMAL) Lipid panel (01/17/2025 10:14 AM CDT) Cholesterol 170 30 - 199 mg/dL Comment: Interpretive Data Ages < or = 19 years Acceptable: <170 mg/dL Borderline high: 170-199 mg/dL High: >or= 200 mg/dL Ages > or = 20 years Desirable: <200 mg/dL Borderline high: 200-239 mg/dL High: >or= 240 mg/dL Literature References: 1. Expert Panel on Integrated Guidelines for Cardiovascular Health and Risk Reduction in Children and Adolescents. Pediatrics 2011;128:S213 2. NCEP Expert Panel. Circulation 2004;110:227 Current Interpretive Data was last revised on 2018. Triglycerides 165(H) <=149 mg/dL [facility] Comment: Interpretive Data Ages < or = 9 years Acceptable: <75 mg/dL Borderline high: 75-99 mg/dL High: >or= 100 mg/dL Ages 10 to 20 years Acceptable: <90 mg/dL Borderline high: 90-129 mg/dL High: >or= 130 mg/dL Ages > or = 20 years Desirable: <150 mg/dL Borderline high: 150-199 mg/dL High: 200-499 mg/dL Very high: >or= 499 mg/dL Literature References: 1. Expert Panel on Integrated Guidelines for Cardiovascular Health and Risk Reduction in Children and Adolescents. Pediatrics 2011;128:S213 2. NCEP Expert Panel. Circulation 2004;110:227 Current Interpretive Data was last revised on 2018. HDL 56 >=40 mg/dL [facility] Comment: Interpretive Data Ages < or = 19 years Acceptable: >45 mg/dL Borderline low: 40-45 mg/dL Low: <40 mg/dL Ages > or = 20 years Desirable: >or= 60 mg/dL Low: <40 mg/dL Literature References: 1. Expert Panel on Integrated Guidelines for Cardiovascular Health and Risk Reduction in Children and Adolescents. Pediatrics 2011;128:S213 2. NCEP Expert Panel. Circulation 2004;110:227 Current Interpretive Data was last revised on 2018. LDL, calculated 86 <=129 mg/dL [facility] Comment: Interpretive Data Ages < or = 19 years Acceptable: <110 mg/dL Borderline high: 110-129 mg/dL High: >or= 130 mg/dL Ages > or = 20 years Optimal: <100 mg/dL Near optimal: 100-129 mg/dL Borderline high: 130-159 mg/dL High: >160 mg/dL Calculated using the Chuck LDL-C estimating equation. This equation was implemented on 2024. Prior to this date LDL-C was estimated using the Friedewald equation. Literature References: 1. Expert Panel on Integrated Guidelines for Cardiovascular Health and Risk Reduction in Children and Adolescents. Pediatrics 2011;128:S213 2. NCEP Expert Panel. Circulation 2004;110:227 3. Chuck Rosario al. TERE Cardiol. 2019December 27;5(5):540-548. doi: 10.1001/jamacardio.2020.0013 Current Interpretive Data was last revised on 2024. Non-HDL Cholesterol 114 mg/dL [facility] Comment: Interpretive Data Ages < or = 19 years Acceptable: <120 mg/dL Borderline high: 120-144 mg/dL High: >145 mg/dL Ages > or = 20 years When triglycerides are >200 mg/dL, Non-HDL cholesterol is a secondary target of therapy with treatment goals that are 30 mg/dL greater than the LDL cholesterol target. Literature References: 1. Expert Panel on Integrated Guidelines for Cardiovascular Health and Risk Reduction in Children and Adolescents. Pediatrics 2011;128:S213 2. NCEP Expert Panel. Circulation 2004;110:227 Current Interpretive Data was last revised on 2018. Chol/HDL ratio 3 [facility] Blood 01/17/2025 10:1 4 AM CDT 01/17/2025 8:11 PM CDT us Charlette Carballo NP LAB [place]LOOD [place] [address] Department [place] [address] * Comprehensive metabolic panel (01/17/2025 10:14 AM CDT) Sodium 143 135 - 145 mmol/L Potassium, pl 4.2 3.3 - 4.9 mmol/L [facility] Chloride 105 97 - 110 mmol/L [facility] CO2 25 22 - 32 mmol/L [facility] Anion gap 13 2 - 15 mmol/L [facility] BUN 25 6 - 25 mg/dL [facility] Creatinine 0.84 0.60 - 1.10 mg/dL [facility] Glucose 95 70 - 199 mg/dL [facility] Comment: Interpretive Data Fasting glucose >/= 126 mg/dl is diagnostic for diabetes. Fasting is defined as no caloric intake for at least 8 hours. Fasting glucose between 100 mg/dl to 125 mg/dl is diagnostic of prediabetes. In a patient with classic symptoms of hyperglycemia or hyperglycemic crisis, a random glucose >/= 200 mg/dl is diagnostic for diabetes. In the absence of unequivocal hyperglycemia, results should be confirmed by repeat testing. The classification and Diagnosis of Diabetes Diabetes Care 2021; 46: S19-S40. Current interpretive data was last revised 2022. Calcium 9.6 8.5 - 10.3 mg/dL [facility] Bilirubin, total 0.4 0.1 - 1.2 mg/dL [facility] Protein, pl 7.0 6.5 - 8.5 g/dL [facility] Albumin 4.0 3.5 - 5.0 g/dL [facility] Alk phos 119 40 - 130 Units/L [facility] ALT 20 7 - 45 Units/L [facility] AST 30 10 - 45 Units/L [facility] Blood 01/17/2025 10:1 4 AM CDT 01/17/2025 8:11 PM CDT Charlette Carballo NP LAB BLOOD ORDERABLES Final Resul t [facility] [address] Department [place] [address] * (ABNORMAL) POCT lipid panel (01/09/2025 12:50 PM CDT) Cholesterol, POC 153 <200 MG/DL HDL, POC 54 >=40 mg/dL Triglycerides, POC 169(A) <=149 mg/dL LDL Cholesterol POC 66 <=129 mg/dL Chol/HDL Ratio, POC 1.2 NONE Non-HDL Cholesterol, POC 100 NONE mg/dL Cholesterol Total, POC 153 30 - 199 mg/dL Capillary blood 01/09/2025 1 2:50 PM CDT Jerry Wood MD POINT OF CARE TEST ORDERABLES Fi nal Result * CT Chest WO Contrast (12/06/2024 9:46 AM CDT) Anatomical Region Laterality Modality Body N/A Computed Tomogra phy 12/06/2024 10:1 4 AM CDT Impressions 12/06/2024 10:14 AM CDT 1. Stable pulmonary nodules since March 2023. Groundglass right upper lobe 0.9 cm x 0.7 cm nodule may represent inflammatory nodule or low-grade bronchogenic carcinoma. Continued follow-up suggested. 2. Additional findings as above. Electronically signed by: Norris Valverde II, D.O. Narrative 12/06/2024 10:14 AM CDT EXAMINATION: Computed tomography of the chest without intravenous contrast HISTORY: Solitary pulmonary nodule. TECHNIQUE: Transaxial computed tomographic images of the chest were obtained without intravenous contrast according to the standard protocol. COMPARISON: 06/07/2024. FINDINGS: No pleural effusion or pneumothorax. There is a 0.9 x 0.7 cm nodule in the right upper lobe, which appears stable since 2022, series 4 image 52. Low-grade bronchogenic carcinoma versus inflammatory nodule remain considered in the differential diagnosis. Stable lingular 0.6 cm nodule unchanged since March 2023. No new nodules. Mild scarring in the superior segment right lower lobe. Minimal mosaic attenuation in the lung parenchyma most significant in the lingula and left lower lobe. Thyroid is heterogeneous. Mild atherosclerotic calcifications in the aorta and branch vessels. No pericardial effusion. No acute osseous abnormality. Mild multilevel endplate changes in the visualized spine. Procedure Note Norris Valverde II, DO - 12/06/2024 EXAMINATION: Computed tomography of the chest without intravenous contrast HISTORY: Solitary pulmonary nodule. TECHNIQUE: Transaxial computed tomographic images of the chest were obtained without intravenous contrast according to the standard protocol. COMPARISON: 06/07/2024. FINDINGS: No pleural effusion or pneumothorax. There is a 0.9 x 0.7 cm nodule in the right upper lobe, which appears stable since 2022, series 4 image 52. Low-grade bronchogenic carcinoma versus inflammatory nodule remain considered in the differential diagnosis. Stable lingular 0.6 cm nodule unchanged since March 2023. No new nodules. Mild scarring in the superior segment right lower lobe. Minimal mosaic attenuation in the lung parenchyma most significant in the lingula and left lower lobe. Thyroid is heterogeneous. Mild atherosclerotic calcifications in the aorta and branch vessels. No pericardial effusion. No acute osseous abnormality. Mild multilevel endplate changes in the visualized spine. IMPRESSION: 1. Stable pulmonary nodules since March 2023. Groundglass right upper lobe 0.9 cm x 0.7 cm nodule may represent inflammatory nodule or low-grade bronchogenic carcinoma. Continued follow-up suggested. 2. Additional findings as above. Electronically signed by: Norris Valverde II, D.O. Raymundo Chew MD IMG CT PROCEDURES Elinor l Result * Screening Mammogram Bilateral W Dread (11/26/2024 8:08 AM CDT) Anatomical Region Laterality Modality Breast Bilateral Mammography 11/26/2024 8:10 AM CDT Impressions 11/26/2024 8:10 AM CDT No evidence of malignancy in either breast. FINAL ASSESSMENT: BI-RADS Category 2: Benign. RECOMMENDATION: Recommend return for annual screening mammogram in 12 months. Electronically signed by: Norris Valverde II, D.O. Narrative 11/26/2024 8:10 AM CDT EXAMINATION: BILATERAL SCREENING MAMMOGRAM COMPARISON: All prior mammograms dating back to 2020. TECHNIQUE: Full-field 2D and digital breast tomosynthesis (DBT) images were obtained. CAD was utilized. BREAST PARENCHYMAL COMPOSITION: There are scattered areas of fibroglandular density. FINDINGS: There is no suspicious mass, calcification, or distortion in either breast. Benign microcalcifications bilaterally. Self Referral IMG MAMMO PROCEDURES Final Resul t * RI ARTHROCENTESIS ASPIR&/INJ MAJOR JT/BURSA W/O US (11/05/2024 9:00 AM CDT) Narrative Raymundo Fraire PA - 11/05/2024 9:00 AM CDT Raymundo Fraire PA 11/05/2024 9:22 AM Large Joint (Hip, Knee, Shoulder) Injection: bilateral glenohumeral Performed by: Raymundo Fraire PA Authorized by: Raymundo Fraire PA Large Joint Injection/Aspiration: Consent Given by: Patient Site marked: the procedure site was marked Verbal consent obtained: Yes Supporting Documentation: Indications: Pain Procedure Details: Location: Shoulder Site: Bilateral glenohumeral Needle Size: 22 G Approach: Posterior Ultrasound guided: No Fluroscopic guidance: No Medications Right Large Joint Injection: 80 mg methylPREDNISolone acetate 80 mg/mL; 3 mL lidocaine 20 mg/mL (2 %) Medications Left Large Joint Injection: 80 mg methylPREDNISolone acetate 80 mg/mL; 3 mL lidocaine 20 mg/mL (2 %) Patient tolerance: Patient tolerated the procedure well with no immediate complications Raymundo PEREA IN CLINIC/BEDSIDE ORDERABLE S Final Result * HM DEXA SCAN (01/24/2024 8:21 AM CDT) Historical Provider HEALTH MAINTENANCE Final Result from Last 3 Months or Most Recently Relevant to Health Maintenance Insurance MEDICARE [facility] MEDICARE MEDICARE [facility] Care Teams Reservation Sales Agent Relationship Specialty Start Date End Date Charlette Carballo NP [address] [facility] [address] [place], [place] [id number] PCP - General Family Medicine 01/17/25 [place] [address] [address] [facility] [address] [place] [address] Consulting Physician Pulmonary Disease 12/01/23 [place] [address] [address] [facility] [address] [place] [address] Nurse Practitioner Nurse Practitioner 04/16/24 Juan Daniel Singletary MD [address] [facility] [address] [place] [address] Referring Physician Ophthalmology 01/17/25 Jrery Wood MD [address] [place], [place] [id number] Consulting Physician Cardiology 01/17/25 [place] [address] [address] [facility] [address] [place] [address] Consulting Physician Pain Management 01/17/25 Zeny Cummings MD [address] [place] [address] Referring Physician Dermatology 01/17/25 Akbar Parker MD [address] [place] [address] Referring Physician Internal Medicine 01/17/25
--- OUTSIDE RECORDS SUMMARY | 2025-02-05 22:32 | XMS_ITS | Encounter Summary ---
Author Organization [facility] Healthcare Address [address] [place] [address] Care Team Providers Care Millinery Worker Name Role Phone Raymundo Chew MD Unavailable Aramis [place] NP Unavailable [phone] Charlette Carballo NP Primary Care Provider Juan Daniel Singletary MD Unavailable Jerry Wood MD Unavailable Rl Robledo MD Unavailable Zeny Cummings MD Unavailable [phone] Akbar Parker MD Unavailable [phone] Encounter Details Date Type Department Care Team (Late st Contact Info) Description 02/04/2025 Results Follow-Up [facility] [address] [place] [address] Grayson Yates NP [address] [place] [address] [address] [place] [address] XR Wrist Right 3+ Vw Social History Tobacco Use Types Packs/Day Years Used Date Smoking Tobacco: Former Cigarettes 1.5 30 1 08/29/1963 - 06/29/1994 Smokeless Tobacco: Never Alcohol Use Standard Drinks/Week Comments Yes 0 [...] on file Legal Sex Female 12:57 PM [employer] Gender Identity Female 03/31/2022 9:21 AM CDT Sexual Orientation Not on file documented as of this encounter Plan of Treatment Not on file documented as of this encounter Visit Diagnoses Not on filedocumented in this encounter Care Teams Millinery Worker Relationship Specialty Start Date End Date Charlette Carballo NP [address] [facility] [address] [place] [address] PCP - General Family Medicine 01/17/25 [place] [address] [facility] [address] [place] [address] Consulting Physician Pulmonary Disease 12/01/23 [place] [address] [facility] [address] [place] [address] Nurse Practitioner Nurse Practitioner 04/16/24 Juan Daniel Singletary MD [address] [facility] [address] [place] [address] Referring Physician Ophthalmology 01/17/25 Jerry Wood MD [address] [place] [address] Consulting Physician Cardiology 01/17/25 [place] [address] [facility] [address] [place] [address] Consulting Physician Pain Management 01/17/25 Zeny Cummings MD [address] [place] [address] Referring Physician Dermatology 01/17/25 Akbar Parker MD [address] [place] [address] Referring Physician Internal Medicine 01/17/25 documented as of this encounter
--- OUTSIDE RECORDS SUMMARY | 2025-02-05 22:32 | XMS_ITS | Referral Summary ---
Author Organization [facility] Address [address] [place] [address] Care Team Providers Care Maintenance Mgr Name Role Phone Raymundo Chew MD Unavailable Aramis Greenfield NP Unavailable [phone] Charlette Carballo NP Primary Care Provider Juan Daniel Singletary MD Unavailable Jerry Wood MD Unavailable Rl Robledo MD Unavailable Zeny Cummings MD Unavailable [phone] Akbar Parker MD Unavailable [phone] Encounters Date Type Department Care Team Description 02/04/2025 Telephone [facility] Surgery [id number] [place] [address] Medical Office Building [address] [place] [address] Rajni Bob LPN HAND/WRIST FRACTURE 02/04/2025 Telephone [facility]ics [facility] Medicine [address] [place] [address] [address] [address] Yoni Gallego MD 02/04/2025 Results Follow-Up [facility] at [address] [address] Grayson Yates NP XR Wrist Right 3+ Vw 02/04/2025 9:30 AM CDT Ancillary Procedure [facility] Imaging at [address] [address] Accidental fall, initial encounter 02/04/2025 9:25 AM CDT Ancillary Procedure [facility] Medical [facility] Imaging at [address] [address] Accidental fall, initial encounter 02/04/2025 9:20 AM CDT Ancillary Procedure [facility] Group Imaging at [address] [address] Accidental fall, initial encounter 02/04/2025 9:15 AM CDT Office Visit [facility] at [address] [phone] Grayson Yates NP Accidental fall, initial encounter (Primary Dx) 01/18/2025 Orders Only [facility] Group Primary Care at [address] [phone] Charlette Carballo NP 01/18/2025 Telephone [facility] Primary Care at [address] [phone] Charlette Carballo, CRISTOBAL Med Refill 01/17/2025 10:14 AM CDT - 01/17/2025 11:59 PM CDT Hospital Encounter [place] [id number] OAB (overactive bladder); Essential hypertension; Vitamin D deficiency; Encounter for screening examination for intermediate hyperglycemia and diabetes mellitus Discharge Disposition: Discharge to home or self care 01/17/2025 Results Follow-Up [facility] Group Primary Care at [address] [phone] Charlette Carballo, CRISTOBAL XR Knee Right 4+ Vw, Urinalysis reflex to microscopic and culture Urine, bladder, CBC with auto differential, Additional followed-up results: 8 01/17/2025 10:15 AM CDT Lab [facility] Group Outpatient Lab at [address] [phone] 01/17/2025 10:45 AM CDT Ancillary Procedure [facility] Imaging at [address] [phone] Chronic pain of right knee 01/17/2025 9:30 AM CDT Office Visit [facility] Medical Group Primary Care at [address] [phone] Charlette Carballo NP Essential hypertension (Primary Dx); OAB (overactive bladder); Chronic pain of right knee; Restless leg syndrome; Vitamin D deficiency; Encounter for screening examination for intermediate hyperglycemia and diabetes mellitus; Moderate persistent asthma without complication; Sleep disturbances; Cold intolerance 01/09/2025 1:00 PM CDT Office Visit [facility] Medical Group Cardiology [address] [place] [phone] Jerry Wood MD Essential hypertension (Primary Dx); Diastolic dysfunction; Venous insufficiency; Status post ablation of incompetent vein using laser; Lipid screening 12/11/2024 Orders Only [facility] Neuro Sleep [address] [facility] 6th [address] [place] [address] Paul Parker MD 12/06/2024 9:23 AM CDT - 12/06/2024 11:59 PM CDT Hospital Encounter [facility] Imaging and Radiology [address] [place] [address] Solitary pulmonary nodule Discharge Disposition: Discharge to home or self care 11/29/2024 Telephone [facility] Scheduling [address] [place] [address] Paul Parker MD 11/26/2024 7:47 AM CDT - 11/26/2024 11:59 PM CDT Hospital Encounter [facility] Imaging and Radiology [address] [place] [address] Screening mammogram, encounter for Discharge Disposition: Discharge to home or self care 11/05/2024 9:00 AM CDT Office Visit [facility] [address] [place] [phone] Raymundo Fraire PA Glenohumeral arthritis, right (Primary Dx); Glenohumeral arthritis, left; Rotator cuff tendinitis, right; Tendonitis of left rotator cuff from Last 3 Months Allergies Active Allergy Reactions Criticality Noted Date [...] (100mg) capsule daily PRN 540 capsule 02/06/20 Active atorvastatin (LIPITOR) 10 mg tablet Take 1 tablet (10 mg total) by mouth daily 02/12/20 025 Discontinued(Re order) albuterol HFA (PROVENTIL HFA,VENTOLIN HFA,PROAIR HFA) 90 mcg/actuation inhaler 01/08/20 025 Discontinued(Re order) amitriptyline (ELAVIL) 50 mg tablet 10/28/19 025 Discontinued(Praveen kenny Reported) losartan (COZAAR) 25 mg tablet Take 1 tablet (25 mg total) by mouth daily 10/18/19 025 Discontinued(Re order) famotidine (PEPCID) 40 mg tablet 0.5 tablets (20 mg total) 02/04/20 025 Discontinued(Re order) gabapentin (NEURONTIN) 100 mg [...] times a day 180 tablet 1 01/19/20 025 Discontinued gabapentin (NEURONTIN) 100 mg capsuleIndicat [...] on 12/01/2023 Chronic right-sided thoracic back pain 02/26/202 4 Trigger point with back pain 10/24/2023 Myalgia [...] on the importance of compliance with medications. Immunizations Immunization Administration Dates Next Due Hep B Vaccine 02/02/2016,01/05/2016,01/05/2016 Influenza, Trivalent, High D ose, Split, Preservative Free, Intramuscular 05/07/2019,05/14/2018,05/13/2018 Influenza, Unspecified 05/19/2024,2022,05/07/2022,05/25,04/24/2020,05/28/2019 Pneumococcal Conjugate PCV 13 08/11/2021 Pneumococcal Polysaccharide PPV23 03/24/2020,,09/28/2011 RSV Vaccine, Pref, Recombina nt, Subunit, Adjuvanted, PF, IM (Arexvy) 05/20/2023 Sars-CoV-2, Unspecified 01/01/2023,05/07,10/26/2021,05/25,08/28/2020,07/28/2020 Tdap 01/13/2016 ZOSTER Recombinant 03/24/2020 Zoster, unspecified 05/25/2020,03/23/2020,2017 Social History Tobacco Use Types Packs/Day Years [...] on file 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 T: Report ID: [id number] Reading Location: [id number] Procedure Note Javier Ortega Jr., MD - [...] by Javier Ortega M.D. T: Report ID: [id number] Reading Location: [id number] Grayson Yates TYPING OFFICE WORKER IMG XR PROCEDURES Final Result * XR [...] by Javier Ortega M.D. T: Report ID: [id number] Reading Location: [place] [address] Procedure Note Javier Ortega Jr., MD - [...] by Javier Ortega M.D. T: Report ID: [id number] Reading Location: [place] [address] Grayson Yates TYPING OFFICE WORKER IMG XR PROCEDURES Final Result * XR [...] by Javier Ortega M.D. T: Report ID: [id number] Reading Location: [id number] Procedure Note Javier Ortega Jr., MD - [...] by Javier Ortega M.D. T: Report ID: [id number] Reading Location: [place] [address] Grayson Yates NP IMG XR PROCEDURES Final [...] by Shaun Cantu M.D. T: Report ID: [id number] Reading Location: [id number] Procedure Note Shaun Cantu MD - 01/17/2025 [...] by Shaun Cantu M.D. T: Report ID: [id number] Reading Location: [id number] Charlette Carballo TYPING OFFICE WORKER IMG XR PROCEDURES Final Result * eGFR [...] of Race in Diagnosing Kidney Disease, JASN 202). The CKD-EPI equation should not be used for patients with unstable renal function and has not been validated in children and those over 70. Current interpretive data was last reviewed 2021. Blood 01/17/2025 10:1 4 AM CDT 01/17/2025 8:15 PM CDT us Charlette Cox TYPING OFFICE WORKER LAB BLOOD ORDERABLES Final Resul t [facility] [address] [address] Department [place] [address] * Differential, auto (01/17/2025 10:14 AM CDT) Neutrophil abs 3.36 1.50 - 6.50 K/cumm Imm gran abs 0.02 0.00 - 0.10 K/cumm [facility] CH Lymphocyte abs 1.27 0.80 - 3.30 K/cumm [facility] Monocyte abs 0.66 0.20 - 0.80 K/cumm [facility] Eosinophil abs 0.17 0.00 - 0.50 K/cumm [facility] Basophil abs 0.06 0.00 - 0.10 K/cumm [facility] Neutrophil pct 60.6 % [facility] Comment: Interpretive Data Percent cell count reference [...] revised on 2017. Lymphocyte pct 22.9 % [facility] Comment: Interpretive Data Percent cell count reference ranges are not reported, since discordance with absolute values may lead to misinterpretation of CBC data. Current Interpretive Data was last revised on 2017. Monocyte pct 11.9 % [facility] Comment: Interpretive Data Percent cell count reference ranges are not reported, since discordance with absolute values may lead to misinterpretation of CBC data. Current Interpretive Data was last revised on 2017. Eosinophil pct 3.1 % [facility] Comment: Interpretive Data Percent cell count reference ranges are not reported, since discordance with absolute values may lead to misinterpretation of CBC data. Current Interpretive Data was last revised on 2017. Basophil pct 1.1 % [facility] Comment: Interpretive Data Percent cell count reference ranges are not reported, since discordance with absolute values may lead to misinterpretation of CBC data. Current Interpretive Data was last revised on 2017. Blood 01/17/2025 10:1 4 AM CDT 01/17/2025 8:11 PM CDT us Charlette Carballo TYPING OFFICE WORKER LAB BLOOD ORDERABLES Final Resul t Performing Organization Address [facility] de Phone Number ALAINA [address] [address] [place] [address] * Thyroid Function [place] (01/17/2025 10:14 AM CDT) TSH 1.44 0.30 - 4.20 mcIUnit/mL Blood 01/17/2025 10:1 4 AM CDT 01/17/2025 8:11 PM CDT us Charlette Carballo TYPING OFFICE WORKER LAB BLOOD ORDERABLES Final Resul t Performing Organization Address [facility] de Phone Number ALAINA [address] [address] [place] [address] * (ABNORMAL) Urinalysis reflex to microscopic and culture Urine, bladder (01/17/2025 10:14 AM CDT) Color, ur Yellow Yellow Clarity, ur Clear Clear [facility] Specific gravity, ur 1.024 1.003 - 1.030 [facility] pH, urine 6.0 [facility] Comment: Interpretive Data U rine pH is affected by diet, medications, systemic acid-base disturbances, and renal tubular function. pH may affect urinary stone formation. For example, urine pH below 6.0 may help reduce the tendency for calcium phosphate stones and pH greater than 6.0 may reduce the tendency for uric acid stone formation. Source: [facility] [place] Current Interpretive Data was last revised on 2017 Protein, ur ql Trace Negative [facility] Glucose, ur ql Negative Negative [facility] Ketones, ur Negative Negative [facility] Bilirubin, ur Negative Negative [facility] Blood, ur Negative Negative [facility] Urobilinogen, ur <2.0 <2.0 mg/dL [facility] Nitrite, ur Negative Negative [facility] Leukocyte esterase, ur 2+(A) Negative [facility] UA reflex comment Reflex to microscopic UA will be performed. [facility] Urine, bladder 01/17/2025 10 :14 AM CDT 01/17/2025 8:11 PM CDT us Charlette Carballo NP LAB MICROBIOLOGY - GENERAL ORDER MELISSA Final Result [facility] [address] [address] [address] [place] [address] * (ABNORMAL) CBC with auto differential (01/17/2025 10:14 AM CDT) Pathologist [facility] WBC 5.54 3.80 - 9.90 K/cumm Hgb 12.6 11.9 - 15.5 g/dL [facility] Hct 41.5 35.6 - 45.5 % [facility] Plt 275 150 - 400 K/cumm [facility] MPV 10.6 9.1 - 12.3 fL [facility] RBC 4.23 3.90 - 5.20 M/cumm [facility] MCV 98.1(H) 81.3 - 96.4 fL [facility] MCH 29.8 27.1 - 33.3 pg [facility] MCHC 30.4(L) 32.3 - 35.7 g/dL [facility] RDW CV 13.5 11.1 - 14.9 % [facility] RDW SD 49.5(H) 35.7 - 48.1 fL [facility] NRBC abs 0.00 0.00 - 0.01 K/cumm [facility] Blood 01/17/2025 10:1 4 AM CDT 01/17/2025 8:11 PM CDT us Charlette Carballo NP LAB BLOOD ORDERABLES Final Resul t [facility] [address]ner Department [place] [address] * Vitamin D 25 hydroxy (01/17/2025 10:14 AM CDT) Vitamin D 25-OH 35 30 - 80 ng/mL Blood 01/17/2025 10:1 4 AM CDT 01/17/2025 8:11 PM CDT us Charlette Carballo NP LAB BLOOD ORDERABLES Final Resul t Performing Organization Address [facility] Co de Phone Number [facility] [address] [address] Department [place] [address] * (ABNORMAL) Urinalysis, microscopic only (01/17/2025 10:14 AM CDT) Pathologist [facility] WBC, ur 0-5 0 - 5 /HPF RBC, ur 0-2 0 - 2 /HPF [facility] Epithelial cells, squamous, ur 1-5 0 - 5 /HPF [facility] Mucous, ur Present(A) [facility] Culture Reflex Comment Reflex conditions for urine culture (WBC >10) not met. [facility] Urine, bladder 01/17/2025 10 :14 AM CDT 01/17/2025 8:11 PM CDT us Charlette Carballo NP LAB URINE ORDERABLES Final Resul t Performing Organization Address [facility] de Phone Number [facility] [address] [address] [place] [address] * (ABNORMAL) Hemoglobin A1c (01/17/2025 10:14 AM CDT) Pathologist [facility] Hgb A1C 6.1(H) 4.0 - 5.6 % Estimated Average Glucose 128 mg/dL [facility] Comment: The ADA recommends reporting an estimated Average Glucose (eAG) with all Hemoglobin A1c results using the equation derived from a study of 507 normal and diabetic adults. Minority populations were underrepresented and children were not included. (Diabetes Care 31:2675-8698, 2008). The eAG is not equivalent to a fasting glucose. Blood 01/17/2025 10:1 4 AM CDT 01/17/2025 8:11 PM CDT us Charlette Carballo NP LAB BLOOD ORDERABLES Final Resul t [facility] [address] [address] Department of Laboratories [place] [id number] * (ABNORMAL) Lipid panel (01/17/2025 10:14 AM [...] Pediatrics 2011;128:S213 2. NCEP Expert Panel. Circulation 2003;110:227 Current Interpretive Data was last revised on [...] on 2018. HDL 56 >=40 mg/dL [facility]INTER Comment: Interpretive Data Ages [...] 2018. LDL, calculated 86 <=129 mg/dL [facility] PAINTER Comment: Interpretive Data Ages [...] NCEP Expert Panel. Circulation 2004;110:227 3. Chuck Brenner et al. TERE Cardiol. 2019December 27;5(5):540-548. doi: 10.1001/jamacardio.2020.0013 Current Interpretive Data was last revised on 2024. Non-HDL Cholesterol 114 mg/dL [facility] Comment: Interpretive Data Ages [...] last revised on 2018. Chol/HDL ratio 3 [facility] Blood 01/17/2025 10:1 4 AM CDT 01/17/2025 8:11 PM CDT us Charlette Carballo NP LAB BLOOD ORDERABLES Final Resul t [facility] [address] [address] [address] Department [place] [address] * Comprehensive metabolic panel (01/17/2025 10:14 AM [...] LAB BLOOD ORDERABLES Final Resul t [facility] [address] [address] Department [place] [address] * (ABNORMAL) POCT lipid panel [...] visualized spine. Procedure Note Norris Valverde II, - 12/06/2024 EXAMINATION: Computed tomography of the [...] Raymundo Chew MD IMG CT PROCEDURES Elinor menon Result * Screening Mammogram Bilateral W Dread [...] IMG MAMMO PROCEDURES Final Resul t * [place] ARTHROCENTESIS ASPIR&/INJ MAJOR JT/BURSA W/O US (11/05/2024 [...] IN CLINIC/BEDSIDE ORDERABLE S Final Result * DEXA SCAN (01/24/2024 8:21 AM CDT) Historical Provider HEALTH MAINTENANCE Final Result from Last 3 Months or Most Recently Relevant to Health Maintenance [place] [address] MEDICARE [facility] FEDERAL MEDICARE MEDICARE [facility] Care Teams Maintenance Mgr Relationship Specialty Start Date End Date Charlette Carballo NP [address] [place], [place] [id number] PCP - General Family Medicine 01/17/25 [place] [address] [facility] [address] [place] [address] Consulting Physician Pulmonary Disease 12/01/23 [place] [address] [facility] [address] [place] [address] Nurse Practitioner Nurse Practitioner 04/16/24 Juan Daniel Singletary MD [address] [facility] [address] [place] [address] Referring Physician Ophthalmology 01/17/25 Jerry Wood MD [address] [place] [address] Consulting Physician Cardiology 01/17/25 [place] [address] [facility] [address] [place] [address] Consulting Physician Pain Management 01/17/25 Zeny Cummings MD [address] [place] [address] Referring Physician Dermatology 01/17/25 Akbar Parker MD [address] [place] [address] Referring Physician Internal Medicine 01/17/25
--- OUTSIDE RECORDS SUMMARY | 2025-02-05 22:32 | XMS_ITS | Encounter Summary ---
Author Organization [facility] Healthcare Address [address] [place] [address] Care Team Providers Care Piercing Machine Operator Name Role Phone Raymundo Chew MD Unavailable Aramis Greenfield NP Unavailable [phone] Charlette Carballo NP Primary Care Provider [phone] Juan Daniel Singletary MD Unavailable Jerry Wood MD Unavailable Rl Robledo MD Unavailable Zeny Cummings MD Unavailable [phone] Akbar Parker MD Unavailable [phone] Encounter Details Date Type Department Care Team (Late st Contact Info) Description 02/04/2025 Telephone [facility] Medical Group Orthopedics and Sports Medicine [address] [facility] [address] [place] [address] Yoni Gallego MD [address] [place] [address] [address] [place] [address] Social History Tobacco Use Types Packs/Day Years [...] on file 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 * Telephone Encounter - Maile Prado - 02/04/2025 10:33 AM CDT Insurance: Medicare Is this pending or an active worker's comp case? No Has a Work Comp case been filed with the employer? N/A Do we have necessary paperwork for work comp? N/A Is this due to a sports injury? No Diagnosis of chief complaint/body part: [x] Right [] Left [] Bilateral []Knee []Hip []Shoulder []Wrist [x]Foot/Ankle []Hand []Elbow []Back []Other What happened to cause injury? Patient fell at home 02/01/2025 What treatment/splinting has the patient had since injury? [x]Splint []Sling []Crutches []Brace []Boot []Non-Weight Bearing [] Was the patient seen at a [facility] facility? [x] YES Location: [facility] Urgent Care EDW Date: 02/04/2025 [] NO XR Performed? []NO [x]YES- [facility] Facility - pull report and attach findings below. XR impression (only) on report: IMPRESSION: Acute or subacute fracture of the radial styloid process. No other acute osseous abnormality of the right hand, wrist, or forearm. 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 documented in this encounter Plan of Treatment Not on file documented as of this encounter Visit Diagnoses Not on filedocumented in this encounter Care Teams Piercing Machine Operator Relationship Specialty Start Date End Date Charlette Carballo NP [address] [place], [place] [id number] PCP - General Family Medicine 01/17/25 [place] [address] [facility] [address] [place] [address] Consulting Physician Pulmonary Disease 12/01/23 [place] [address] [facility] [address] [place] [address] Nurse Practitioner Nurse Practitioner 04/16/24 Juan Daniel Singletary MD [address] [facility] [address] [place] [address] Referring Physician Ophthalmology 01/17/25 Jerry Wood MD [address] [place] [address] Consulting Physician Cardiology 01/17/25 [place] [address] [facility] [address] [place] [address] Consulting Physician Pain Management 01/17/25 Zeny Cummings MD [address] [place] [address] Referring Physician Dermatology 01/17/25 Akbar Parker MD [address] [place] [address] Referring Physician Internal Medicine 01/17/25 documented as of this encounter
--- OUTSIDE RECORDS SUMMARY | 2025-02-05 22:32 | XMS_ITS | Encounter Summary ---
Author Organization [facility] Healthcare Address [address] [place] [address] Care Team Providers Care Brick Dropper Name Role Phone Raymundo Chew MD Unavailable [phone] Aramis Greenfield NP Unavailable [phone] Charlette Carballo NP Primary Care Provider [phone] Juan Daniel Singletary MD Unavailable Jerry Wood MD Unavailable Rl Robledo MD Unavailable [phone] Zeny Cummings MD Unavailable [phone] Akbar Parker MD Unavailable [phone] Encounter Details Date Type Department Care Team (Latest Contact Info) Description 02/04/2025 9:30 AM CDT Ancillary Procedure [facility] Imaging at [address] [address] Accidental fall, initial encounter Social History Tobacco Use Types Packs/Day Years [...] on file 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 T: Report ID: [id number] Reading Location: [id number] Procedure Note Javier Ortega Jr., MD - [...] by Javier Ortega M.D. T: Report ID: [id number] Reading Location: [id number] Grayson Yates NP IMG XR PROCEDURES Final Result documented in this encounter Visit Diagnoses Diagnosis Accidental fall, initial encounter documented in this encounter Care Teams Brick Dropper Relationship Specialty Start Date End Date Charlette Carballo NP [address] [place] [address] PCP - General Family Medicine 01/17/25 [place] [address] [facility] [address] [place] [address] Consulting Physician Pulmonary Disease 12/01/23 [place] [address] [facility] [address] [place] [address] Nurse Practitioner Nurse Practitioner 04/16/24 Juan Daniel Singletary MD [address] [facility] [address] [place] [address] Referring Physician Ophthalmology 01/17/25 Jerry Wood MD [address] [place] [address] Consulting Physician Cardiology 01/17/25 [place] [address] [facility] [address] [place] [address] Consulting Physician Pain Management 01/17/25 Zeny Cummings MD [address] [place] [address] Referring Physician Dermatology 01/17/25 Akbar Parker MD [address] [place] [address] Referring Physician Internal Medicine 01/17/25 documented as of this encounter
--- OUTSIDE RECORDS SUMMARY | 2025-02-05 22:32 | XMS_ITS | Encounter Summary ---
Author Organization [facility] Address [address] [place] [address] Phone Care Team Providers Care Director Of Solutions Architecture Name Role Phone Raymundo Chew MD Unavailable Aramis Greenfield NP Unavailable [phone] Charlette Carballo ROUTE RETURNER Primary Care Provider [phone] Juan Daniel Singletary MD Unavailable Jerry Wood MD Unavailable Rl Robledo MD Unavailable Zeny Cummings MD Unavailable [phone] Akbar Parker MD Unavailable [phone] Reason for Visit * Reason Onset Date Comments HAND/WRIST FRACTURE 02/04/2025 Encounter Details Date Type Department Care Team (Late st Contact Info) Description 02/04/2025 Telephone [facility] Surgery [address] [place] [address] Medical Office Building [address] [place] [address] Rajni Bob LPN HAND/WRIST FRACTURE Social History Tobacco Use Types Packs/Day Years [...] on file 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 Patient is currently scheduled with Orthopedics this week. Rajni Bob LPN ----- Message from Debbie Judd sent at 02/04/2025 2:59 PM CDT ----- Regarding: pt referred to dr gresham Patient Query: Was an attempt to transfer to the assigned clinical staff or backline? No Reason for call?: pt needs to schedule in for a fracture of right wrist, advised by backline to send a message (Read message back to caller and ask them if there is anything else they'd like to add to the message) Who is the caller: patient What is the best number for them to contact for a call back: [phone] Last office visit: Visit date not found Date of Surgery: 10/28/2023 documented in this encounter Plan of Treatment Not on file documented as of this encounter Visit Diagnoses Not on filedocumented in this encounter Care Teams Director Of Solutions Architecture Relationship Specialty Start Date End Date Charlette Carballo NP [address] [place] [address] PCP - General Family Medicine 01/17/[address] [place] [address] [facility] [address] [place] [address] Consulting Physician Pulmonary Disease 12/01/23 [place] [address] [facility] [address] [place] [address] Nurse Practitioner Nurse Practitioner 04/16/24 Juan Daniel Singletary MD [address] [facility] [address] [place] [address] Referring Physician Ophthalmology 01/17/25 Jerry Wood MD [address] [place] [address] Consulting Physician Cardiology 01/17/[address] [place] [address] [facility] [address] [place] [address] Consulting Physician Pain Management 01/17/25 Zeny Cummings MD [address] [place] [address] Referring Physician Dermatology 01/17/25 Akbar Parker MD [address] [place] [address] Referring Physician Internal Medicine 01/17/25 documented as of this encounter
--- OUTSIDE RECORDS SUMMARY | 2025-02-05 22:32 | XMS_ITS | Encounter Summary ---
Author Organization [facility] Healthcare Address [address] [place] [address] Care Team Providers Care Compensation Expert Name Role Phone Raymundo Chew MD Unavailable Aramis Greenfield NP Unavailable [phone] Charlette Carballo NP Primary Care Provider [phone] Juan Daniel Singletary MD Unavailable Jerry Wood MD Unavailable Rl Robledo MD Unavailable [phone] Zeny Cummings MD Unavailable [phone] Akbar Parker MD Unavailable [phone] Encounter Details Date Type Department Care Team (Latest Contact Info) Description 02/04/2025 9:25 AM CDT Ancillary Procedure [facility] Imaging at [address] [address] Accidental fall, initial encounter Social [...] on file 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 T: Report ID: [id number] Reading Location: [id number] Procedure Note Javier Ortega Jr., MD - [...] by Javier Ortega M.D. T: Report ID: [id number] Reading Location: [id number] Grayson Yates NP IMG XR PROCEDURES Final Result documented in this encounter Visit Diagnoses Diagnosis Accidental fall, initial encounter documented in this encounter Care Teams Compensation Expert Relationship Specialty Start Date End Date Charlette Carballo NP [address] [place] [address] PCP - General Family Medicine 01/17/25 [place] [address] [facility] [address] [place] [address] Consulting Physician Pulmonary Disease 12/01/23 [place] [address] [facility] [address] [place] [address] Nurse Practitioner Nurse Practitioner 04/16/24 Juan Daniel Singletary MD [address] [facility] [facility] [address] [place] [address] Referring Physician Ophthalmology 01/17/25 Jerry Wood MD [address] [place] [address] Consulting Physician Cardiology 01/17/25 [place] [address] [facility] [address] [place] [address] Consulting Physician Pain Management 01/17/25 Zeny Cummings MD [address] [place] [address] Referring Physician Dermatology 01/17/25 Akbar Parker MD [address] [place] [address] Referring Physician Internal Medicine 01/17/25 documented as of this encounter
--- OUTSIDE RECORDS SUMMARY | 2025-02-05 22:33 | XMS_ITS | Encounter Summary ---
Author Organization [facility] Healthcare Address [address] [place] [address] Care Team Providers Care Geospatial Engineer Name Role Phone Mellissa Arauz MD Primary Care Provider [phone] Flex Saldivar MD PhD Unavailable [phone] Raymundo Chew MD Unavailable Aramis Greenfield NP Unavailable [phone] Unknown, Notinfile Primary Care Provider Unavail able Charlette Carballo NP Primary Care Provider Juan Daniel Singletary MD Unavailable Jerry Wood MD Unavailable Rl Robledo MD Unavailable [phone] Zeny Cummings MD Unavailable [phone] Akbar Parker MD Unavailable [phone] Encounter Details Date Type Department Care Team (Late st Contact Info) Description 11/28/2019 Orders Only [facility] Health Information Management [address] [place] [address] Scanning, Provider Social History Tobacco Use Types Packs/Day Years Used Date Smoking Tobacco: Former Cigarettes Q uit: 1993 Smokeless Tobacco: Never Alcohol Use Standard Drinks/Week Comments Yes 0 (1 standard drink = 0.6 oz pur e alcohol) AUDIT-C Answer Date Recorded Frequency of Alcohol Consumption 2-4 times a tue04/04/2019 Average Number of Drinks 1 or 2 019 Frequency of Binge Drinking Never 02/2019 Comments No Sex and Gender Information Value Date Recorded Sex Assigned at Not on file Legal Sex Female 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 Gender Identity Female 03/31/2022 9:21 AM CDT Sexual Orientation Not on file documented as of this encounter Plan of Treatment Not on file documented as of this encounter Procedures Procedure Name Priority Date/Time Associated Diagnosis Comments SCAN - OTHER ORDERS 11/28/2019 documented in this encounter Results * SCAN - OTHER ORDERS (11/28/2019) us Provider Scanning Final Result documented in this encounter Visit Diagnoses Not on filedocumented in this encounter Additional Health Concerns Infection Onset Date Last Indicated Resolved Time COVID: Suspected 10/15/2024 10/15/2024 10/15/2024 3:13 PM FRONT END UI DEVELOPER Influenza, adult 10/15/2024 10/15/2024 10/22/2024 3:07 AM FRONT END UI DEVELOPER documented as of this encounter Care Teams Geospatial Engineer Relationship Specialty Start Date End Date Mellissa Arauz MD PCP - General 09/13/19 09/10/24 Unknown, Notinfile PCP - General 09/11/24 01/16/25 Charlette Carballo NP [address] [facility] [address] [place] [address] PCP - General Family Medicine 01/17/25 Flex Saldivar MD PhD [address] [place] [address] Radiation Oncologist Radiation Oncology 12/01/23 [place] [address] [address] [facility] [address] [place] [address] Consulting Physician Pulmonary Disease 12/01/23 [place] [address] [facility] [address] [place] [address] Nurse Practitioner Nurse Practitioner 04/16/24 Juan Daniel Singletary MD [address] [facility] [address] [place] [address] Referring Physician Ophthalmology 01/17/25 Jerry Wood MD [address] [place], [place] [address] Consulting Physician Cardiology 01/17/25 [place] [address] [facility] [address] [place] [address] Consulting Physician Pain Management 01/17/25 Zeny Cummings MD [address] [place] [address] Referring Physician Dermatology 01/17/25 Akbar Parker MD [address] [place] [address] Referring Physician Internal Medicine 01/17/25 documented as of this encounter
--- OUTSIDE RECORDS SUMMARY | 2025-02-05 22:33 | XMS_ITS | CONTINUITY OF CARE DOCUMENT ---
Author Name pranav bonnieteofilo Address Unknown Organization [facility] Address [address] [facility] [address] [place] [address] Phone [phone] Care Team Providers Care Chalk Tester Name Role Phone Quincy Chou MD Unavailable Mellissa Arauz MD Unavailable Mellissa Arauz MD Unavailable [phone] PROBLEMS Condition Status Date Provider Notes Cardiology examination active Quincy Chou MD Family History of CVA or Stroke: active Rudy Chou MD Varicose veins active Quincy Chou MD Restless leg syndrome active Quincy Judd D Asthma active Quincy Chou MD GERD active Quincy Chou MD HTN essential active Quincy Chou MD VENOUS INSUFFICIENCY active Quincy Chou MD ENCOUNTERS Date Type Provider Location Encounter Diag nosis - In-person encounter Office Visit Quincy Chou MD [facility] Office - In-person encounter Office Visit Quincy Chou MD [place] [facility] - In-person encounter Office Visit Quincy Chou MD [facility] VENOUS INSUFFICIENCY - In-person encounter Office Visit Quincy Chou MD [facility] Cardiology examinationFamily History of CVA or Stroke:Varicose veinsRestless leg syndromeAsthmaGERDHTN essential VITAL SIGNS Date Observation Value Provider blood pressure, diastolic 78 mm[Hg] Li nkLog blood pressure, systolic 134 mm[Hg] Ree [facility] Body Mass Index (Ratio) 24.33 kg/m2 Wendie Chou MD blood pressure, cuff size large [facility] blood pressure, diastolic 78 mm[Hg] [facility] blood pressure, systolic 134 mm[Hg] Can tessie [place] respiratory rate E&M 18 /min [facility] pulse rate 81 /min [facility] oxygen saturation, oximetry 95 % [facility] weight E&M 160 [lb_av] [facility] height E&M 68 [in_i] [facility] Body Mass Index (Ratio) 24.93 kg/m2 Wendie Chou MD blood pressure, cuff size regular Ke tariki Iqra blood pressure, diastolic 62 mm[Hg] Ke rri Iqra blood pressure, systolic 116 mm[Hg] Nilay Escalona oxygen saturation, oximetry 97 % Lore Escalona respiratory rate E&M 16 /min Lore perez pulse rate 85 /min Lore Colon [facility] weight E&M 164 [lb_av] Lore Colon [facility] height E&M 68 [in_i] Lore Colon [facility] Body Mass Index (Ratio) 24.78 kg/m2 Wendie Chou MD blood pressure, cuff size regular Ke tariki Iqra blood pressure, diastolic 56 mm[Hg] Ke rri Iqra blood pressure, systolic 102 mm[Hg] Nilay ri Gonzálezelder oxygen saturation, oximetry 97 % Lore Claudioelder respiratory rate E&M 18 /min Lore hydeenenfelder pulse rate 88 /min Lore Colon lder weight E&M 163 [lb_av] Lore Colon lder height E&M 68 [in_i] Lore Colon er Body Mass Index (Ratio) 25.09 kg/m2 Wendie Chou MD blood pressure, diastolic 72 mm[Hg] Cy renata Aguila blood pressure, systolic 124 mm[Hg] Teagan hussain Aguila blood pressure, cuff size regular Cy renata Aguila oxygen saturation, oximetry 98 % Marilu Aguila pulse rate 86 /min Marilu menon respiratory rate E&M 16 /min Marilu Aguila weight E&M 165 [lb_av] Marilu menon height E&M 68 [in_i] Marilu menon ALLERGIES Allergy Name Onset Date Reaction Criticality Status ROPINIROLE High Criticality active ADHESIVE BANDAGES Low Criticality ac tive PENICILLIN G PROCAINE Low Criticalit y active HISTORY OF MEDICATION USE Medication Status Instructions Dates Provider Indications Com ments BREBinta ELLIPTA AEROSOL POWDER BREATH ACTIVATED active one puff a night Lore Iqra VITAMIN D3 CAPSULE active take 1 tab daily Marilu Aguila WELLMIND MENTAL FOCUS ORAL TABLET CHEWABLE completed take 1 tab daily - Lore Iqra HAIR SKIN NAILS ORAL CAPSULE active take 1 tab daily Marilu Aguila FOLIC ACID 800 MCG ORAL TABLET active take 1 tab daily Marilu Aguila VITAMIN E 400 UNIT ORAL CAPSULE active take 1 cap daily Marilu Aguila CALCIUM 600 TABLET active take 1 tab daily Marilu Aguila LISINOPRIL 5 MG ORAL TABLET active take 1 tab daily Marilu Aguila FLONASE ALLERGY RELIEF SUSPENSION active take as needed Marilu Mingo LIPITOR 10 MG ORAL TABLET active ONE TAB. DAILY Lore Iqra FAMOTIDINE 20 MG ORAL TABLET active take one pill twice a day Lore Iqra PROAIR HFA 108 (90 BASE) MCG/ACT INHALATION AEROSOL SOLUTION active inhale 2 puffs Marilu Aguila AMITRIPTYLINE HCL 50 MG ORAL TABLET active TAKE 1 TAB TWICE A DAY as needed Lore Escalona SOCIAL HISTORY Date Observation Value Provider social history E&M S moking History: Howard mcgrath is a former smoker. Quincy Chou MD social history reviewed E&M revi ewed - no changes required Quincy Chou MD smoking, year quit 1993 Fidelia jose number of years as a smoker 22 a Fidelia Ibarrafield smoking history, tot al pack/day 1/2 PPD Fidelia Ibarrafield cigarette use yes Fidelia Ibarrarozina d smoking status Former smoker Fidelia Rice grantd social history E&M S moking History: Howard mcgrath is a former smoker. Quincy Chou MD social history reviewed E&M revi ewed - no changes required Quincy Chou MD number of years as a smoker 22 a Lore Escalona smoking, year quit 1993 Lore miller smoking history, tot al pack/day 1/2 PPD Lore Escalona cigarette use yes Lore ross smoking status Former smoker Lore villeda social history E&M S moking History: Howard mcgrath is a former smoker. Quincy Chou MD social history reviewed E&M revi ewed - no changes required Quincy Chou MD drug use no Quincy Chou MD alcohol use, average drinks per day social Quincy Chou MD alcohol use yes Quincy Chou MD smoking history, tot al pack/day 1/2 PPD Lore Stevennfelder cigarette use yes Lore Negrocesarnf elder smoking status Former smoker Lore Steven nfelder drug use no Quincy Chou MD alcohol use, average drinks per day social Quincy Chou MD alcohol use yes Quincy Chou MD social history E&M S moking History: Howard mcgrath is a former smoker. Quincy Chou MD social history reviewed E&M revi ewed - no changes required Quincy Chou MD number of grandchildren Quincy Chou MD U sriram Chou MD smoking history, tot al pack/day 1/2 PPD Marilu Aguila cigarette use yes Marilu mendez smoking status Former smoker Marilu schaeffer FAMILY HISTORY Family Member Condition Maternal Grandfather Family History of P rostate Cancer: Mother Family History of CV A or Stroke: INSURANCE PROVIDERS Payer name Policy type / Coverage type [place] [employer] party [place] B Medicare [id number] [facility] [id number] [place] MEDICARE Medicare [id number] ADVANCE DIRECTIVES Name Date POWER OF MOLDER [employer] PLAN Date Name Performer [id number],C,s he has been doing very well and I think she does not need to follow up with myself. Quincy Chou MD Cardiology:she has b een doing very well and I think she does not need to follow up with myself. Quincy Chou MD Cardiology Follow up : B P today: 116/62 P rior BP: 102/56 (05/29/2020) Her updated medication list for this problem includes: Lisinopril 5 Mg Oral Tablet (Lisinopril) ..... Take 1 tab daily Quincy Chou MD Cardiology Follow up : S chantel 1980s. Uses amitryptilline with some benefit. May be secondary to venous insufficency Quincy Chou MD Cardiology Follow up :She has been using compression socks with some benefit. S ibeth venous doppler 04/07/2020 demonstrates reflux in b/l GSVs. Her veins are not large in diameter. CONCLUSIONS: 1 . No evidence of a deep vein thrombosis of the lower extremities bilaterally. 2 . Significant venous insufficiency of the greater saphenous vein bilaterally. E lectronically Signed By: Cruz Queen MD, [facility] 020-08-11 12:52:31 CDT Quincy Chou MD Cardiology Follow up Quincy judd MD Cardiology Follow up : H er updated medication list for this problem includes: Lisinopril 5 Mg Oral Tablet (Lisinopril) ..... Take 1 tab daily BP today: 102/56 P rior BP: 124/72 (03/27/2020) Quincy Chou MD Cardiology Follow up :Standing venous doppler 04/07/2020 demonstrates reflux in b/l GSVs. Her veins are not large in diameter. She will do well with compression socks. Plan is to give her compression and f/u in 3 months Quincy Chou MD Cardiology New Patient Quincy chandler MD Cardiology New Patie nt : B P today: 124/72 Her updated medication list for this problem includes: Lisinopril 5 Mg Oral Tablet (Lisinopril) ..... Take 1 tab daily Quincy Chou MD Cardiology New Patie nt :Since . May be secondary to venous insufficency Quincy Chou MD Cardiology New Patie nt :In left thigh and right ankle. Will obtain standing venous doppler. She is having discomfort but it is not severe. Advised to obtain compression socks. Quincy Chou MD Date Name Venous Doppler Bilat seymour [place] - Reflux HISTORY OF PROCEDURES Procedure Date Procedure Name Provider Procedure Notes S tatus EKG Quincy Chou MD completed EKG Quincy Chou MD completed
--- OUTSIDE RECORDS SUMMARY | 2025-02-05 22:33 | XMS_ITS | Encounter Summary ---
Author Organization [facility] Healthcare Address [address] [place] [address] Care Team Providers Care Child Specialist Name Role Phone Raymundo Chew MD Unavailable Aramis Greenfield NP Unavailable [phone] Charlette Carballo NP Primary Care Provider [phone] Juan Daniel Singletary MD Unavailable Jerry Wood MD Unavailable Rl Robledo MD Unavailable Zeny Cummings MD Unavailable [phone] Akbar Parker MD Unavailable [phone] Reason for Visit * Reason Onset Date Comments Med Refill 01/18/2025 Encounter Details Date Type Department Care Team (Late st Contact Info) Description 01/18/2025 Telephone [facility] Medical [facility] Primary Care at [place] [id number] [place] [address] Charlette Carballo NP [address] [place] [address] [address] [place] [address] Med Refill Social History Tobacco Use Types Packs/Day Years [...] on file 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 Patient questions if the mg can be changed back to 40mg where her insurance will cover it. If needed, Pharmacy(s) medication(s) should be sent to: [facility] - ELIAZAR Perez - [facility] AT Portal to Registered [facility] Sites Additional Comments: The patient called back stating, her insurance will not cover the 20 mg tablet, but will cover the 40 mg. She is requesting the dosage changed to 40 mg, still 180 tablets, but directions are to be changed to the patient taking 1/2 table in the a.m. and 1/2 tablet at night. Please notify the patient once the changes had been made and confirmed with the pharmacy Does message need to be routed? Yes-Action Needed documented in this encounter Plan of Treatment Not on file documented as of this encounter Visit Diagnoses Not on filedocumented in this encounter Care Teams Child Specialist Relationship Specialty Start Date End Date Charlette Carballo NP [address] [facility] [address] [place] [address] PCP - General Family Medicine 01/17/25 [place] [address] [facility] [address] [place] [address] Consulting Physician Pulmonary Disease 12/01/23 [place] [address] [facility] [address] [place] [address] Nurse Practitioner Nurse Practitioner 04/16/24 Juan Daniel Singletary MD [address] [facility] [address] [place] [address] Referring Physician Ophthalmology 01/17/25 Jerry Wood MD [address] [place] [address] Consulting Physician Cardiology 01/17/25 [place] [address] [facility] [address] [place] [address] Consulting Physician Pain Management 01/17/25 Zeny Cummings MD [address] [place] [address] Referring Physician Dermatology 01/17/25 Akbar Parker MD [address] [place] [address] Referring Physician Internal Medicine 01/17/25 documented as of this encounter
--- OUTSIDE RECORDS SUMMARY | 2025-02-05 22:33 | XMS_ITS | Encounter Summary ---
Author Organization [facility] Healthcare Address [address] [place] [address] Care Team Providers Care Rolloff Driver Name Role Phone Raymundo Chew MD Unavailable Aramis Greenfield NP Unavailable [phone] Charlette Carballo NP Primary Care Provider [phone] Juan Daniel Singletary MD Unavailable Jerry Wood MD Unavailable Rl Robledo MD Unavailable Zeny Cummings MD Unavailable [phone] Akbar Parker MD Unavailable [phone] Reason for Visit * Diagnostic Imaging (Routine) - Closed Specialty Diagnoses / Procedures Referred By Contac t Referred To Contact Diagnoses Accidental fall, initial encounter Procedures XR Hand Right 3 or More Views Grayson Yates, CRISTOBAL [address] [place] [address] [address] [place] [address] Phone: tel: fax: [facility] Medical Group Referral ID Status Reason Start Date Expiration Date Visits Re quested Visits Authorized [id number] Closed 02/04/2025 03/06/2026 1 1 Encounter Details Date Type Department Care Team (Latest Contact Info) Description 02/04/2025 9:20 AM CDT Ancillary Procedure [facility] Medical [facility] Imaging at [address] [address] Accidental fall, initial encounter Social [...] on file 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 Gender Identity Female 03/31/2022 9:21 AM CDT Sexual Orientation Not on file documented as of this encounter Plan of Treatment Not on file documented as of this encounter Procedures Procedure Name Priority Date/Time Associated Diagnosis Comments XR HAND RIGHT 3 OR MORE VIEWS Schedule CARLEEN, Read CARLEEN (Appt Today, Awaiting Results) 02/04/2025 9:25 AM CDT Accidental fall, initial encounter documented in this encounter Results * XR Hand Right 3 or More [...] AM - Electronically signed by Javier Ortega M.D., CH T: Report ID: [id number] Reading Location: [place] [address] Procedure Note Javier Ortega Jr., MD - [...] by Javier Ortega M.D. T: Report ID: [id number] Reading Location: [id number] Grayson Yates SAP BUSINESS OBJECTS CONSULTANT IMG XR PROCEDURES Final Result documented in this encounter Visit Diagnoses Diagnosis Accidental fall, initial encounter documented in this encounter Care Teams Rolloff Driver Relationship Specialty Start Date End Date Charlette Carballo NP [address] [place], [place] [id number] PCP - General Family Medicine 01/17/25 [place] [address] [facility] [address] [place] [address] Consulting Physician Pulmonary Disease 12/01/23 [place] [address] [facility] [address] [place] [address] Nurse Practitioner Nurse Practitioner 04/16/24 Juan Daniel Singletary MD [address] [facility] [address] [place] [address] Referring Physician Ophthalmology 01/17/25 Jerry Wood MD [address] [place] [address] Consulting Physician Cardiology 01/17/25 [place] [address] [facility] [address] [place] [address] Consulting Physician Pain Management 01/17/25 Zeny Cummings MD [address] [place] [address] Referring Physician Dermatology 01/17/25 Akbar Parker MD [address] [place] [id number] Referring Physician Internal Medicine 01/17/25 documented as of this encounter
--- OUTSIDE RECORDS SUMMARY | 2025-02-05 22:33 | XMS_ITS | Encounter Summary ---
Author Organization [facility] Healthcare Address [address] [place] [address] Care Team Providers Care Pipe Welder Name Role Phone Raymundo Chew MD Unavailable [phone] Aramis Greenfield NP Unavailable [phone] Charlette Carballo NP Primary Care Provider Juan Daniel Singletary MD Unavailable Jerry Wood MD Unavailable Rl Robledo MD Unavailable Zeny Cummings MD Unavailable [phone] Akbar Parker MD Unavailable [phone] Encounter Details Date Type Department Care Team (Late st Contact Info) Description 01/17/2025 Results Follow-Up [facility] Medical Group Primary Care at [place] [address] [place] [address] Charlette Carballo, CRISTOBAL [address] [place] [address] [address] [place] [address] XR Knee Right 4+ Vw, Urinalysis reflex to microscopic and culture Urine, bladder, CBC with auto differential, Additional followed-up results: 8 Social History Tobacco Use Types Packs/Day Years [...] on file 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 [address] [place] [address] Consulting Physician Pulmonary Disease 12/01/23 [place] [address] [facility] [address] [place] [address] Nurse Practitioner Nurse Practitioner 04/16/24 Juan Daniel Singletary MD [address] [facility] [address] [place] [address] Referring Physician Ophthalmology 01/17/25 Jerry Wood MD [address] [place] [address] Consulting Physician Cardiology 01/17/25 [place] [address] [address] Consulting Physician Pain Management 01/17/25 Zeny Cummings MD [address] [place] [address] Referring Physician Dermatology 01/17/25 Akbar Parker MD [facility] [place] [address] Referring Physician Internal Medicine 01/17/25 documented as of this encounter
--- OUTSIDE RECORDS SUMMARY | 2025-02-05 22:33 | XMS_ITS | Encounter Summary ---
Author Organization [facility] Healthcare Address [address] [place] [address] Care Team Providers Care Extruder Operator Horizontal Name Role Phone Mellissa Arauz MD Primary Care Provider [phone] Flex Saldivar MD PhD Unavailable [phone] Raymundo Chew MD Unavailable [phone] Aramis Greenfield NP Unavailable [phone] Unknown, Notinfile Primary Care Provider Unavail able Charlette Carballo NP Primary Care Provider Juan Daniel Singletary MD Unavailable Jerry Wood MD Unavailable Rl Robledo MD Unavailable Zeny Cummings MD Unavailable [phone] Akbar Parker MD Unavailable [phone] Encounter Details Date Type Department Care Team (Late st Contact Info) Description 04/10/2020 Telephone [facility] Breast Imaging [facility] ([facility]) [address] [place] [id number] Sierra Rivera, RT Social History Tobacco Use Types Packs/Day Years Used Date Smoking Tobacco: Former Cigarettes Q uit: 1993 Smokeless Tobacco: Never Alcohol Use Standard Drinks/Week Comments Yes 0 (1 standard drink = 0.6 oz pur e alcohol) AUDIT-C Answer Date Recorded Frequency of Alcohol Consumption 2-4 times a tue04/11/2020 Average Number of Drinks 1 or 2 020 Frequency of Binge Drinking Never 03/29 Comments No Sex and Gender Information Value Date Recorded Sex Assigned at Not on file 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 Gender Identity Female 03/31/2022 9:21 AM CDT Sexual Orientation Not on file documented as of this encounter Plan of Treatment Not on file documented as of this encounter Visit Diagnoses Not on filedocumented in this encounter Additional Health Concerns Infection Onset Date Last Indicated Resolved Time COVID: Suspected 10/15/2024 10/15/2024 10/15/2024 3:13 PM SOCIAL STUDIES TEACHER Influenza, adult 10/15/2024 10/15/2024 10/22/2024 3:07 AM SOCIAL STUDIES TEACHER documented as of this encounter Care Teams Extruder Operator Horizontal Relationship Specialty Start Date End Date Mellissa Arauz MD PCP - General 09/13/19 09/10/24 Unknown, Notinfile PCP - General 09/11/24 01/16/25 Charlette Carballo NP [address] [facility] [address] [place] [address] PCP - General Family Medicine 01/17/25 Flex Saldivar MD PhD [address] [place] [address] Radiation Oncologist Radiation Oncology 12/01/23 [place] [address] [facility] [address] [place] [address] Consulting Physician Pulmonary Disease 12/01/23 [place] [address] [facility] [address] [place] [address] Nurse Practitioner Nurse Practitioner 04/16/24 Juan Daniel Singletary MD [address] [place] [address] Referring Physician Ophthalmology 01/17/25 Jerry Wood MD [address] [place] [address] Consulting Physician Cardiology 01/17/25 [place] [address] [place] [address] Consulting Physician Pain Management 01/17/25 Zeny Cummings MD [address] [place] [address] Referring Physician Dermatology 01/17/25 Akbar Parker MD [address] [place] [address] Referring Physician Internal Medicine 01/17/25 documented as of this encounter
--- OUTSIDE RECORDS SUMMARY | 2025-02-05 22:33 | XMS_ITS | Encounter Summary ---
Author Organization [facility] Healthcare Address [address] [place] [address] Care Team Providers Care Hydraulic Barker Operator Name Role Phone Daysi Chew MD Unavailable Aramis Greenfield NP Unavailable [phone] Charlette Carballo NP Primary Care Provider [phone] Juan Daniel Singletary MD Unavailable Jerry Wood MD Unavailable Rl Robledo MD Unavailable [phone] Zeny Cummings MD Unavailable [phone] Akbar Parker MD Unavailable [phone] Reason for Referral * Consultation (Urgent) - Closed Specialty Diagnoses / Procedures Referred By Contgi t Referred To Contact Orthopedic Surgery Diagnoses Accidental fall, initial encounter Grayson Yates, [address]ST[address] [place] [address] Phone: tel: fax: Daysi Fraire PA [address] [place] [address] [address] [place] [address] Phone: tel: fax: Referral ID Status Reason Start Date Expiration Date V isits Requested Visits Authorized [id number] Closed Specialty Services Required 02/04/2025 03/06/2026 1 1 Question Answer Please select the performing region: [facility] Medical Group [[id number]] Please select the performing department: [facility] [[id number]] To provider: DAYSI FRAIRE [[id number]] # of visits: 1 * Diagnostic Imaging (Routine) - Closed Specialty Diagnoses / Procedures Referred By John t Referred To Contact Diagnoses Accidental fall, initial encounter Procedures XR Hand Right 3 or More Views Grayson Yates NP [address] [place] [address] Phone: tel: fax: [facility] Referral ID Status Reason Start Date Expiration Date Visits Re quested Visits Authorized [id number] Closed 02/04/2025 03/06/2026 1 1 Reason for Visit * Reason Comments Fall Patient here for c/o right forearm injury after fall on Tuesday night Encounter Details Date Type Department Care Team (Late st Contact Info) Description 02/04/2025 9:15 AM CDT Office Visit [facility] at [address] [address] Grayson Yates NP [address] [place] [address] Accidental fall, initial encounter (Primary Dx) Social History Tobacco Use Types Packs/Day Years [...] on file 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 I strive to provide you with EXCELLENT service. You may receive a survey after your visit today. If you cannot rate your experience as EXCELLENT, please let us know how we can improve and better meet your needs. Thank you for choosing [facility]! It was my pleasure to see you today, I hope you feel better soon! Grayson Yates BI DATA MODELER * Attachments The following attachments cannot be sent through Care Everywhere. * Wrist Sprain (AfterCare(R) Instructions(ER/ED)) (Croatian) documented in this encounter Progress Notes * Grayson Yates NP - 02/04/2025 9:15 AM CDT Images from the original note were not included. Subjective/Objective Patient ID: Jodee Castle is a 79 y.o. female. This patient has verbally consented to recording this visit in order to utilize AI technology in generating this note. Chief Complaint Fall (Patient here for c/o right forearm injury after fall on Tuesday night ) History of Present Illness Jodee Castle is an 79 year old female who presents with right wrist pain after a fall. She fell on Tuesday night while running to get out of the rain and slipped on a slick brick, landingon concrete. The pain is primarily located in her right wrist and is exacerbated by movement, with an inability to bend it. She has not used any home remedies or taken any medications for the pain since the fall. Review of Systems All other systems reviewed and are negative. Physical Exam MUSCULOSKELETAL: Tenderness in the right hand and pain with motion in the right wrist. Physical Exam Vitals and nursing note reviewed. Constitutional: General: She is not in acute distress. Appearance: Normal appearance. She is not ill-appearing. Cardiovascular: Rate and Rhythm: Normal rate. Pulmonary: Effort: Pulmonary effort is normal. Musculoskeletal: Right wrist: Swelling, tenderness and bony tenderness present. No lacerations. Decreased range of motion. Normal pulse. Right hand: Bony tenderness present. No swelling. Normal range of motion. Normal sensation. Normal capillary refill. Normal pulse. Skin: General: Skin is warm and dry. Capillary Refill: Capillary refill takes less than 2 seconds. Findings: Bruising present. No erythema or wound. Neurological: Mental Status: She is alert and oriented to person, place, and time. Vitals: 02/04/25 0910 BP: 125/78 Pulse: 80 Resp: 21 Temp: 36.4 ??C (97.5 ??F) SpO2: 98% Weight: 74.8 kg (165 lb) Height: 172.7 cm (5' 8) No results found. Past Medical History: Diagnosis Date Asthma Cataract Diverticulitis GERD (gastroesophageal reflux disease) 06/2018 Hypercholesteremia Hypertension IBS (irritable bowel syndrome) IBS (irritable bowel syndrome) Laryngopharyngeal reflux (LPR) Macular degeneration Osteoarthritis Osteoporosis 04/2016 Skin cancer Skin cancer Current Outpatient Medications: albuterol HFA (PROVENTIL HFA,VENTOLIN HFA,PROAIR HFA) 90 mcg/actuation inhaler, Inhale 2 puffs every 6 (six) hours as needed for wheezing or shortness of breath, Disp: 54 g, Rfl: 1 aspirin 81 mg enteric coated tablet, Take 1 tablet (81 mg total) by mouth daily, Disp: , Rfl: atorvastatin (LIPITOR) 10 mg tablet, Take 1 tablet (10 mg total) by mouth daily, Disp: 90 tablet, Rfl: 2 Breo Ellipta 100-25 mcg/dose diskus inhaler, Inhale 1 puff daily 1000mcg/25mcg, Disp: , Rfl: calcium carbonate (CALCIUM 600 ORAL), Take by mouth, Disp: , Rfl: cholecalciferol (VITAMIN D-3) 1,000 unit capsule, Take 1 capsule (1,000 Units total) by mouth daily, Disp: , Rfl: famotidine (PEPCID) 40 mg tablet, Take 0.5 tablets (20 mg total) by mouth 2 (two) times a day, Disp: 180 tablet, Rfl: 1 fluticasone propionate (Flonase Allergy Relief) 50 mcg/actuation nasal spray, Administer 2 sprays into each nostril daily, Disp: 48 g, Rfl: 1 losartan (COZAAR) 25 mg tablet, Take 1 tablet (25 mg total) by mouth daily, Disp: 90 tablet, Rfl: 2 mirabegron ER (MYRBETRIQ) 25 mg tablet extended release 24 hr, Take 1 tablet (25 mg total) by mouthdaily, Disp: 90 tablet, Rfl: 1 rOPINIRole (REQUIP) 0.5 mg tablet, Take 1 tablet (0.5 mg total) by mouth daily, Disp: , Rfl: terbinafine (LamiSIL) 250 mg tablet, , Disp: , Rfl: vit A/C/E ac/ZnOx/cupric oxide (EYE VITAMIN AND MINERALS ORAL), Take by mouth, Disp: , Rfl: vitamin E 400 unit capsule, Take 1 capsule (400 Units total) by mouth daily, Disp: , Rfl: gabapentin (NEURONTIN) 100 mg capsule, , Disp: , Rfl: Allergies Allergen Reactions Adhesive Rash Omeprazole Muscle pain Muscle cramps Penicillins Swelling Lisinopril Cough Social History Tobacco Use Smoking status: Former Current packs/day: 0.00 Average packs/day: 1.5 packs/day for 30.0 years (45.0 ttl pk-yrs) Types: Cigarettes Start date: 06/29/1964 Quit date: 06/29/1994 Years since quittin.6 Smokeless tobacco: Never Substance and Sexual Activity Drug use: Yes Types: Alcohol Sexual activity: Not Currently Partners: Male control/protection: None Alcohol Use: Alcohol Misuse (04/25/2024) AUDIT-C Frequency of Alcohol Consumption: Monthly or less Average Number of Drinks: 1 or 2 Frequency of Binge Drinking: Monthly Past Surgical History: Procedure Laterality Date ABDOMINOPLASTY APPENDECTOMY BREAST BIOPSY COLONOSCOPY COMBINED ABDOMINOPLASTY AND LIPOSUCTION CORRECTION HAMMER TOE CORRECTION HAMMER TOE COSMETIC SURGERY 01/2017 EXTERNAL FRONTAL ETHMOIDECTOMY EXTRACORPOREAL SHOCK WAVE LITHOTRIPSY HYSTERECTOMY LITHOTRIPSY MOLE REMOVAL NASAL POLYP SURGERY OVARIAN CYSTECTOMY RETINAL DETACHMENT SURGERY SINUS SURGERY SKIN CANCER EXCISION UVULOPALATOPHARYNGOPLASTY Procedures Assessment/Plan 1. Accidental fall, initial encounter (Primary) - XR Hand Right 3 or More Views; Future - XR Forearm Right 2 Vw; Future - XR Wrist Right 3+ Vw; Future - Ambulatory referral to Orthopedic Surgery; Future Results RADIOLOGY Right wrist x-ray: No acute fracture (02/04/2025) Assessment & Plan Right wrist pain Acute pain post-fall with limited mobility and tenderness. Differential: sprain vs. fracture. Awaiting X-ray results. - Order wrist X-ray. - Apply wrist brace. - Advise rest and elevation. - Instruct to follow up with orthopedics if pain persists or fracture is identified. Disposition Treatment plan including expectations, follow up, and return precautions discussed with patient/parent, verbalizes understanding. Medication dosage, use, and potential adverse reactions discussed with patient/parent. Advised to follow up with PCP if symptoms do not resolve as expected or sooner if condition worsens. Signs/symptoms warranting ER evaluation reviewed. Patient and/or guardian was given an opportunity to ask questions, questions answered. Grayson Yates NP This office note has been partially dictated using [employer] software, and as a result portions of the record may have been created with this software. Occasional wrong-word or 'lqpxi-h-jvff' substitutions may have occurred due to the inherent limitations of voice recognition software. Read the chartcarefully and recognize, using context, where substitutions have occurred. documented in this encounter Miscellaneous Notes * Addendum Note - Grayson Yates NP - 02/04/2025 9:15 AM CDTAddended by: GRAYSON YATES on: 02/04/2025 10:31 AM Modules accepted: Orders documented in this encounter Plan of Treatment Scheduled Referrals Name Type Priority Associated Diagnoses Order Schedule Ambulatory referral to Orthopedic Surgery Outpatient Referral Urgent Accidental fall, initial encounter Expected: 02/05/2025 (Approximate), Expires: 02/04/2026 documented as of this encounter Results * XR Forearm Right [...] by Javier Ortega M.D. T: Report ID: [id number] Reading Location: [id number] Procedure Note Javier Ortega Jr., MD - [...] by Javier Ortega M.D. T: Report ID: [id number] Reading Location: [id number] Grayson Yates NP IMG XR PROCEDURES Final [...] by Javier Ortega M.D. T: Report ID: [id number] Reading Location: [id number] Procedure Note Javier Ortega Jr., MD - [...] by Javier Ortega M.D. T: Report ID: [id number] Reading Location: [id number] Grayson Milan PAPER PATTERN INSPECTOR IMG XR PROCEDURES Final Result * XR [...] 10:22 AM - Electronically signed by Javier Brenner.D. T: Report ID: [id number] Reading Location: [id number] Procedure Note Javier Ortega Jr., MD - [...] by Javier Ortega M.D. T: Report ID: [id number] Reading Location: [id number] Grayson Yates NP IMG XR PROCEDURES Final Result documented in this encounter Visit Diagnoses Diagnosis Accidental fall, initial encounter- Primary Accidental fall, initial encounter Accidental fall, initial encounter Accidental fall, initial encounter documented in this encounter Discontinued Medications Medication Sig Discontinue Reason Start Date End Da te gabapentin (NEURONTIN) 100 mg capsuleIndications:Restle ss Legs Syndrome Take up to five pills po qhs prn RLS 01/24/2025 02/04/2025 documented as of this encounter Historical Medications * This list may reflect changes made after this encounter. rOPINIRole (REQUIP) 0.5 mg tablet Take 1 tablet (0.5 mg total) by mouth daily 11/26/2024 gabapentin (NEURONTIN) 100 mg capsule added in this encounter Care Teams Hydraulic Barker Operator Relationship Specialty Start Date End Date Charlette Carballo NP [address] [place], [place] [id number] PCP - General Family Medicine 01/17/25 [place] [id number] [facility] [address] [place], [place] [id number] Consulting Physician Pulmonary Disease 12/01/23 [place] [address] [facility] [address] [place], [place] [id number] Nurse Practitioner Nurse Practitioner 04/16/24 Juan Daniel Singletary MD [address] [place], [place] [id number] Referring Physician Ophthalmology 01/17/25 Jerry Wood MD [address] [place], [place] [id number] Consulting Physician Cardiology 01/17/25 [place] [address] [facility] [address] [place] [address] Consulting Physician Pain Management 01/17/25 Zeny Cummings MD [address] [place] [address] Referring Physician Dermatology 01/17/25 Akbar Parker MD [address] [place] [address] Referring Physician Internal Medicine 01/17/25 documented as of this encounter
[2025-02-05 22:40] VITALS: BP 169/78; PULSE 84; RESP 16; TEMP 36.4; O2SAT 96
--- NOTE | 2025-02-05 22:50 | ED.GENADULT ---
HPI - General Adult General Chief complaint: Skin/Abscess/Foreign Body Stated complaint: right ankle bleeding-vericose vein Time Seen by Provider: 02/05/25 22:38 History of Present Illness HPI narrative: Patient is an 79-year-old female who presents to the emergency department this evening complaining of bleeding varicose vein to her distal right chin. States that she neck the area while shaving. States that the bleeding has been continuous since this morning. Patient states that her neighbor is an anesthesiologist and he applied some cream that supposed to help it stop but it has not. Patient presents to the ED with bandage and an Mando wrap and once open, bleeding has completely stopped. When asked how long she has had this Mando wrap in place, patient states over an hour. Related Data Home Medications ?Medication ?Instructions ?Recorded ?Confirmed ?Last Taken ?Type albuterol sulfate 90 mcg/actuation 1 inh inhalation QID PRN 09/05/19 03/02/24 Unknown History aerosol inhaler (ProAir HFA) difficulty breathing amitriptyline 50 mg tablet 50 mg PO DAILY 09/05/19 03/02/24 09/08/19 History calcium carbonate (Calcium 600) 600 mg PO DAILY 09/05/19 03/02/24 09/08/19 History cholecalciferol (vitamin D3) 25 25 mcg PO DAILY 09/05/19 03/02/24 09/08/19 History mcg (1,000 unit) capsule (Vitamin D3) diphenhydramine HCl 25 mg tablet 25 mg PO HS 09/05/19 03/02/24 09/08/19 History (Allergy) folic acid 0.8 mg capsule 0.8 mg PO DAILY 09/05/19 03/02/24 09/08/19 History glucosamine mejia dipot-chond mejia 1 cap PO DAILY 09/05/19 03/02/24 09/08/19 History sod-C-Mn 500 mg-400 mg-66 mg-3 mg cap vit C 250 mg-vit E 90 mg-zinc 40 1 cap PO DAILY 09/05/19 03/02/24 09/08/19 History mg-copper 1 ja-udwdsn-jkfipr capsule (PreserVision AREDS-2) vitamin E 268 mg (400 unit) capsule 400 unit PO DAILY 09/05/19 03/02/24 09/08/19 History famotidine 10 mg tablet 40 mg PO DAILY 03/16/21 03/02/24 Unknown History fluticasone furoate 100 1 inh inhalation Q24H 03/16/21 03/02/24 Unknown History mcg-vilanterol 25 mcg/dose inhalation powder (Breo Ellipta) atorvastatin 10 mg tablet 10 mg PO HS 03/02/24 03/02/24 Unknown History losartan 25 mg tablet 25 mg PO DAILY 03/02/24 03/02/24 Unknown History ropinirole 0.25 mg tablet 0.25 mg PO HS 03/02/24 03/02/24 Unknown History Allergies Allergy/AdvReac Type Severity Reaction Status Date / Time Penicillins Allergy Unknown Rash Verified 03/14/24 14:35 Review of Systems Review of Systems: All systems are reviewed and are negative unless stated otherwise in the HPI. 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 No breathing issues. Cough stopped after GERD treated GERD (gastroesophageal reflux disease) Asthma Family History Family History Mother Heart disease Sibling Asthma Depression Hypertension Other Asthma Grandparent Ovarian cancer Other Acute myocardial infarction Family history of emphysema Social History Social History Smoking packs per day: 2 Smoking cigarettes per day: 40.0 Years smoked: 40 Smoking pack-years: 80.00 Smoking status: Former smoker Tobacco type: cigarettes Smoking end date: 08/29/93 Alcohol intake: current Drinks per week: 1 Alcohol use details: per month Substance use: never Substance use type: does not use Living arrangements: alone Spiritual care concerns: No Exam Narrative: General: Alert, awake, afebrile, in no acute distress. HEENT: PERRL, no rhinorrhea, no post nasal drip, oropharynx clear. Neck: Trachea midline, no JVD, no lymphadenopathy. Cardiovascular: Regular rate and rhythm, no murmurs, rubs or gallops, no peripheral edema. Respiratory: Clear to auscultation bilaterally, no tachypnea, no wheezing, no rhonchi, no rubs, no respiratory distress. Abdomen: Soft, nontender, nondistended, no rebound, no guarding, no peritoneal signs. Musculoskeletal: No joint swelling or deformity, normal muscle tone. Skin: No rashes or petechia, no signs of infection, pinpoint tammy to the distal anterior oh measuring less than 1 mm not actively bleeding. Psychiatric: Alert and oriented, normal behavior and judgment for situation. Neurological: Alert and oriented to person, place, and time. Follows all commands. No focal deficits, speech is clear and fluent. Course Vital Signs Vital signs: Vital Signs Temperature 98.1 F 02/05/25 22:32 Pulse Rate 75 02/05/25 22:32 Respiratory Rate 16 02/05/25 22:32 Blood Pressure 177/62 H 02/05/25 22:32 Pulse Oximetry 98 02/05/25 22:32 Oxygen Delivery Room Air 02/05/25 22:32 Temperature 97.6 F 02/05/25 22:40 Pulse Rate 84 02/05/25 22:40 Respiratory Rate 16 02/05/25 22:40 Blood Pressure 169/78 H 02/05/25 22:40 Pulse Oximetry 96 02/05/25 22:40 Oxygen Delivery Room Air 02/05/25 22:40 Medical Decision Making MDM Narrative Medical decision making narrative: The patient was evaluated by myself in the emergency department. History is obtained from patient who is an independent historian and physical exam was performed. External medical records were reviewed at this time. Differential diagnosis considerations include laceration, abrasion, venous versus arterial bleeding. Comorbidities impacting this visit include none. I have evaluated and discussed social determinants of health with the patient that could potentially impact subsequent diagnosis and treatment plans. On repeat assessment of the patient, reevaluation revealed that the patient is doing well and is in no acute distress. Patient symptoms have improved since she arrived to our emergency department. Repeat vital signs were all reviewed and noted to be stable. Differential diagnosis and treatment plan were discussed with the patient at bedside. Patient agrees with discussion and after shared medical decision making agrees with discharge. All questions were answered to the patient's satisfaction. Patient will follow up with her PCP in 3-5 days. Patient was provided with strict return precautions and instructed to return to the emergency department if any new or worsening symptoms develop. The patient was discharged in stable condition. Vital Signs Vital Signs: Vital Signs Temperature 98.1 F 02/05/25 22:32 Pulse Rate 75 02/05/25 22:32 Respiratory Rate 16 02/05/25 22:32 Blood Pressure 177/62 H 02/05/25 22:32 Pulse Oximetry 98 02/05/25 22:32 Oxygen Delivery Room Air 02/05/25 22:32 Temperature 97.6 F 02/05/25 22:40 Pulse Rate 84 02/05/25 22:40 Respiratory Rate 16 02/05/25 22:40 Blood Pressure 169/78 H 02/05/25 22:40 Pulse Oximetry 96 02/05/25 22:40 Oxygen Delivery Room Air 02/05/25 22:40 Discharge Plan Discharge Clinical Impression: Bleeding from varicose vein Patient Disposition: Home Condition: Improved Instructions: Antibiotic Form Additional Instructions: Please follow-up with the family doctor within next 3-5 days. Return to emergency room for new or worsening symptoms develop. Patient Language: Sri Lankan Prescriptions: No Action Breo Ellipta 100-25 mcg/dose blister with device 1 inh inhalation Q24H famotidine 10 mg tablet 40 mg PO DAILY azelastine 137 mcg (0.1 %) aerosol,spray 1 spray intranasal Q12H Qty: 30 0RF Rx Instructions: administer into each nostril. Aim back/up/out amitriptyline 50 mg tablet 50 mg PO DAILY calcium carbonate [Calcium 600] 600 mg calcium (1,500 mg) tablet 600 mg PO DAILY albuterol sulfate [ProAir HFA] 90 mcg/actuation Hfa Aerosol Inhaler 1 inh INHALATION QID PRN (Reason: difficulty breathing) vitamin E 400 unit capsule 400 unit PO DAILY cholecalciferol (vitamin D3) [Vitamin D3] 25 mcg (1,000 unit) capsule 25 mcg PO DAILY folic acid 0.8 mg Capsule 0.8 mg PO DAILY glucosam mejia ptd-ausrpdjze-C-Mn 570-809-04-3 mg Capsule 1 cap PO DAILY PreserVision AREDS-2 [id number] zt-pefc-pd-mg capsule 1 cap PO DAILY diphenhydramine HCl [Allergy] 25 mg Tablet 25 mg PO HS atorvastatin 10 mg tablet 10 mg PO HS ropinirole 0.25 mg tablet 0.25 mg PO HS losartan 25 mg tablet 25 mg PO DAILY Follow-up/Referrals: Mellissa Arauz MD [Primary Care Provider] - 3 Days Time of Disposition: 23:02
--- OUTSIDE RECORDS SUMMARY | 2025-02-05 23:00 | XMS_ITS | Encounter Summary ---
Author Organization [facility] Healthcare Address [address] [place] [address] Care Team Providers Care Analytics Lead Name Role Phone Raymundo Chew MD Unavailable Aramis Greenfield NP Unavailable [phone] Charlette Carballo NP Primary Care Provider Juan Daniel Singletary MD Unavailable Jerry Wood MD Unavailable Rl Robledo MD Unavailable Zeny Cummings MD Unavailable [phone] Akbar Parker MD Unavailable [phone] Encounter Details Date Type Department Care Team (Late st Contact Info) Description 02/04/2025 Results Follow-Up [facility] [place] [address] [place] [address] Grayson Yates NP [address] [place] [address] [address] [place] [address] XR Wrist Right 3+ Vw [...] on file Legal Sex Female 12:57 PM SUPERINTENDENT LOGGING Gender Identity Female 03/31/2022 9:21 AM CDT Sexual Orientation Not on file documented as of this encounter Plan of Treatment Not on file documented as of this encounter Visit Diagnoses Not on filedocumented in this encounter Care Teams Analytics Lead Relationship Specialty Start Date End Date Charlette Carballo NP [address] [facility] [address] [place] [address] PCP - General Family Medicine 01/17/25 [place] [address] [facility] [address] [place] [address] Consulting Physician Pulmonary Disease 12/01/23 [place] [address] [facility] [facility] [address] [place] [address] Nurse Practitioner Nurse Practitioner 04/16/24 Juan Daniel Singletary MD [address] [facility] [address] [place] [address] Referring Physician Ophthalmology 01/17/25 Jerry Wood MD [address] [place] [address] Consulting Physician Cardiology 01/17/25 [place] [address] [facility] [address] [place] [address] Consulting Physician Pain Management 01/17/25 Zeny Cummings MD [address] [place] [address] Referring Physician Dermatology 01/17/25 Akbar Parker MD [address] [place] [address] Referring Physician Internal Medicine 01/17/25 documented as of this encounter
--- OUTSIDE RECORDS SUMMARY | 2025-02-05 23:00 | XMS_ITS | Encounter Summary ---
Author Organization [facility] Healthcare Address [address] [place] [address] Care Team Providers Care Traffic Maintenance Officer Name Role Phone Raymundo Chew MD Unavailable Aramis Greenfield NP Unavailable [phone] Charlette Carballo NP Primary Care Provider [phone] Juan Daniel Singletary MD Unavailable Jerry Wood MD Unavailable Rl Robledo MD Unavailable Zeny Cummings MD Unavailable [phone] Akbar Parker MD Unavailable [phone] Encounter Details Date Type Department Care Team (Latest Contact Info) Description 02/04/2025 9:30 AM CDT Ancillary Procedure [facility] Imaging at [address] [address] Accidental fall, initial encounter Social [...] on file Legal Sex Female 12:57 PM OUTSEWER Gender Identity Female 03/31/2022 9:21 AM CDT [...] by Javier Ortega M.D. T: Report ID: [id number] Reading Location: [id number] Procedure Note Javier Ortega Jr., MD - [...] by Javier Ortega M.D. T: Report ID: [id number] Reading Location: [id number] Grayson Yates NP IMG XR PROCEDURES Final Result documented in this encounter Visit Diagnoses Diagnosis Accidental fall, initial encounter documented in this encounter Care Teams Traffic Maintenance Officer Relationship Specialty Start Date End Date Charlette Carballo NP [address] [place] [address] PCP - General Family Medicine 01/17/25 [place] [address] [facility] [address] [place] [address] Consulting Physician Pulmonary Disease 12/01/23 [place] [address] [facility] [address] [place] [address] Nurse Practitioner Nurse Practitioner 04/16/24 Juan Daniel Singletary MD [address] [facility] [address] [place] [address] Referring Physician Ophthalmology 01/17/25 Jerry Wood MD [address] [place] [address] Consulting Physician Cardiology 01/17/25 [place] [address] [facility] [address] [place] [address] Consulting Physician Pain Management 01/17/25 Zeny Cummings MD [address] [place] [address] Referring Physician Dermatology 01/17/25 Akbar Parker MD [address] [place] [address] Referring Physician Internal Medicine 01/17/25 documented as of this encounter
--- OUTSIDE RECORDS SUMMARY | 2025-02-05 23:00 | XMS_ITS | Encounter Summary ---
Author Organization [facility] Address [address] [place] [address] Phone Care Team Providers Care Soda Fountain Manager Name Role Phone Raymundo Chew MD Unavailable Aramis Greenfield NP Unavailable [phone] Charlette Carballo POLICE ACADEMY PROGRAM COORDINATOR Primary Care Provider Juan Daniel Singletary MD Unavailable Jerry Wood MD Unavailable Rl Robledo MD Unavailable [phone] Zeny Cummings MD Unavailable [phone] Akbar Parker MD Unavailable [phone] Reason for Visit * Reason Onset Date Comments HAND/WRIST FRACTURE 02/04/2025 Encounter Details Date Type Department Care Team (Late st Contact Info) Description 02/04/2025 Telephone [facility] Surgery [address] [place] [address] Medical Office Building [address] [place] [address] Rajni Bob LPN HAND/WRIST FRACTURE [...] on file Legal Sex Female 12:57 PM NURSING HOME ADMINISTRATOR Gender Identity Female 03/31/2022 9:21 AM [...] them to contact for a call back: [phone] Last office visit: Visit date not found Date of Surgery: 10/28/2023 documented in this encounter Plan of Treatment Not on file documented as of this encounter Visit Diagnoses Not on filedocumented in this encounter Care Teams Soda Fountain Manager Relationship Specialty Start Date End Date Charlette Carballo NP [address] [place] [address] PCP - General Family Medicine 01/17/25 [place] [address] [facility] [address] [place] [address] Consulting Physician Pulmonary Disease 12/01/23 [place] [address] [facility] [address] [place] [address] Nurse Practitioner Nurse Practitioner 04/16/24 Juan Daniel Singletary MD [address] [facility] [address] [place] [address] Referring Physician Ophthalmology 01/17/25 Jerry Wood MD [address] [place] [address] Consulting Physician Cardiology 01/17/25 [place] [address] [facility] [address] [place] [address] Consulting Physician Pain Management 01/17/25 Zeny Cummings MD [address] [place] [address] Referring Physician Dermatology 01/17/25 Akbar Parker MD [address] [place] [address] Referring Physician Internal Medicine 01/17/25 documented as of this encounter
--- OUTSIDE RECORDS SUMMARY | 2025-02-05 23:00 | XMS_ITS ---
Author Organization [facility] Address [address] [place] [address] Care Team Providers Care Escort Vehicle Driver Name Role Phone Raymundo Chew MD Unavailable Aramis Greenfield NP Unavailable [phone] Charlette Carballo NP Primary Care Provider Juan Daniel Singletary MD Unavailable Jerry Wood MD Unavailable Rl Robledo MD Unavailable Zeny Cummings MD Unavailable [phone] Akbar Parker MD Unavailable [phone] Active Problems Problem Noted Date Diagnosed [...]
--- OUTSIDE RECORDS SUMMARY | 2025-02-05 23:00 | XMS_ITS | Encounter Summary ---
Author Organization [facility] Healthcare Address [address] [place] [address] Care Team Providers Care Light Rail Transit Operator Name Role Phone Raymundo Chew MD Unavailable Aramis Greenfield NP Unavailable [phone] Charlette Carballo NP Primary Care Provider Juan Daniel Singletary MD Unavailable Jerry Wood MD Unavailable Rl Robledo MD Unavailable Zeny Cummings MD Unavailable [phone] Akbar Parker MD Unavailable [phone] Encounter Details Date Type Department Care Team (Late st Contact Info) Description 02/04/2025 Telephone [facility] Medical Group Orthopedics and Sports Medicine [address] [facility] [address] [place] [address] Yoni Gallego MD [address] [place] [address] [address] [place] [address] Social History Tobacco Use Types Packs/Day Years [...] on file Legal Sex Female 12:57 PM DENTAL TECHNICIAN INSTRUCTOR Gender Identity Female 03/31/2022 9:21 AM CDT [...] [] Was the patient seen at a [facility] facility? [x] YES Location: [facility] Urgent Care EDW Date: 02/04/2025 [] NO XR Performed? []NO [x]YES- [facility] Facility - pull report and attach findings [...] on filedocumented in this encounter Care Teams Light Rail Transit Operator Relationship Specialty Start Date End Date Charlette Carballo NP [address] [place], [place] [id number] PCP - General Family Medicine 01/17/25 [place] [address] [facility] [address] [place] [address] Consulting Physician Pulmonary Disease 12/01/23 [place] [address] [facility] [address] [place] [address] Nurse Practitioner Nurse Practitioner 04/16/24 Juan Daniel Singletary MD [address] [facility] [address] [place] [address] Referring Physician Ophthalmology 01/17/25 Jerry Wood MD [address] [place] [address] Consulting Physician Cardiology 01/17/25 [place] [address] [facility] [address] [place] [address] Consulting Physician Pain Management 01/17/25 Zeny Cummings MD [address] [place] [address] Referring Physician Dermatology 01/17/25 Akbar Parker MD [address] [place] [address] Referring Physician Internal Medicine 01/17/25 documented as of this encounter
--- OUTSIDE RECORDS SUMMARY | 2025-02-05 23:01 | XMS_ITS | Encounter Summary ---
Author Organization [facility] Healthcare Address [address] [place] [address] Care Team Providers Care Workers Compensation Examiner Name Role Phone Daysi Chew MD Unavailable [phone] Aramis Greenfield NP Unavailable [phone] Charlette Carballo NP Primary Care Provider [phone] Juan Daniel Singletary MD Unavailable Jerry Wood MD Unavailable Rl Robledo MD Unavailable Zeny Cummings MD Unavailable [phone] Akbar Parker MD Unavailable [phone] Reason for Referral * Consultation (Urgent) - Closed Specialty Diagnoses / Procedures Referred By Contgi t Referred To Contact Orthopedic Surgery Diagnoses Accidental fall, initial encounter Grayson Yates, CRISTOBAL [address] [place] [address] Phone: tel: fax: Daysi Fraire PA [address] [place] [address] [address] [place] [address] Phone: tel: fax: Referral ID Status Reason Start Date Expiration Date V isits Requested Visits Authorized [id number] Closed Specialty Services Required 02/04/2025 03/06/2026 1 1 Question Answer Please select the performing region: [facility] [[id number]] Please select the performing department: [facility] [[id number]] To provider: DAYSI FRAIRE [[id number]] # of visits: 1 * Diagnostic Imaging (Routine) - Closed Specialty Diagnoses / Procedures Referred By John t Referred To Contact Diagnoses Accidental fall, initial encounter Procedures XR Hand Right 3 or More Views Grayson Yates NP [address] [place] [address] Phone: tel: fax: [facility] Medical [facility] Referral ID Status Reason Start Date Expiration Date Visits Re quested Visits Authorized [id number] Closed 02/04/2025 03/06/2026 1 1 Reason for Visit * Reason Comments Fall Patient here for c/o right forearm injury after fall on Tuesday night Encounter Details Date Type Department Care Team (Late st Contact Info) Description 02/04/2025 9:15 AM CDT Office Visit [facility] Medical [facility] Convenient Care at [address] [address] Grayson Yates NP [address] [place] [address] Accidental fall, initial encounter (Primary Dx) [...] on file Legal Sex Female 12:57 PM HOME THEATER EXPERIENCE EXPERT Gender Identity Female 03/31/2022 9:21 AM CDT [...] meet your needs. Thank you for choosing [facility]! It was my pleasure to see you today, I hope you feel better soon! Grayson Yates DOOR GLASS INSTALLER * Attachments The following attachments cannot be sent through Care Everywhere. * Wrist Sprain (AfterCare(R) Instructions(ER/ED)) (Kyrgyz) documented in this encounter Progress Notes * [...] office note has been partially dictated using [employer] software, and as a result portions of the record may have been created with this software. Occasional wrong-word or '[id number]' substitutions may have occurred due to the [...] by Javier Ortega M.D. T: Report ID: [id number] Reading Location: [id number] Procedure Note Javier Ortega Jr., MD - [...] by Javier Ortega M.D. T: Report ID: [id number] Reading Location: [id number] Grayson Yates NP IMG XR PROCEDURES Final [...] by Javier Ortega M.D. T: Report ID: [id number] Reading Location: [id number] Procedure Note Javier Ortega Jr., MD - [...] by Javier Ortega M.D. T: Report ID: [id number] Reading Location: [id number] Grayson Milan [facility] IMG XR PROCEDURES Final Result * XR [...] signed by Javier Brenner.D. T: Report ID: [id number] Reading Location: [id number] Procedure Note Javier Ortega Jr., MD - [...] by Javier Ortega M.D. T: Report ID: [id number] Reading Location: [id number] Grayson Yates NP IMG XR PROCEDURES Final [...] capsule added in this encounter Care Teams Workers Compensation Examiner Relationship Specialty Start Date End Date Charlette Carballo NP [address] [place], [place] [address] PCP - General Family Medicine 01/17/[address] [place] [address] [facility] [address] [place], [place] [address] Consulting Physician Pulmonary Disease 12/01/23 [place] [address] [facility] [address] [place], [place] [address] Nurse Practitioner Nurse Practitioner 04/16/24 Juan Daniel Singletary MD [address] [place], [place] [address] Referring Physician Ophthalmology 01/17/25 Jerry Wood MD [address] [place], [place] [address] Consulting Physician Cardiology 01/17/25 [place] [address] [facility] [address] [place] [address] Consulting Physician Pain Management 01/17/25 Zeny Cummings MD [address] [place] [address] Referring Physician Dermatology 01/17/25 Akbar Parker MD [address] [place] [address] Referring Physician Internal Medicine 01/17/25 documented as of this encounter
--- OUTSIDE RECORDS SUMMARY | 2025-02-05 23:01 | XMS_ITS | Encounter Summary ---
Author Organization [facility] Healthcare Address [address] [place] [address] Care Team Providers Care Territory Outside Sales Manager Name Role Phone Mellissa Arauz MD Primary Care Provider [phone] Flex Saldivar MD PhD Unavailable [phone] Raymundo Chew MD Unavailable [phone] Aramis Greenfield NP Unavailable [phone] Unknown, Notinfile Primary Care Provider Unavail able Charlette Carballo NP Primary Care Provider [phone] Juan Daniel Singletary MD Unavailable Jerry Wood MD Unavailable Rl Robledo MD Unavailable Zeny Cummings MD Unavailable [phone] Akbar Parker MD Unavailable [phone] Encounter Details Date Type Department Care Team (Late st Contact Info) Description 04/10/2020 Telephone [facility] Breast [facility] ([facility]) [address] [place] [address] Sierra Rivera, RT Social History Tobacco [...] on file Legal Sex Female 12:57 PM DUCT CLEANER Gender Identity Female 03/31/2022 9:21 AM CDT Sexual Orientation Not on file documented as of this encounter Plan of Treatment Not on file documented as of this encounter Visit Diagnoses Not on filedocumented in this encounter Additional Health Concerns Infection Onset Date Last Indicated Resolved Time COVID: Suspected 10/15/2024 10/15/2024 10/15/2024 3:13 PM DUCT CLEANER Influenza, adult 10/15/2024 10/15/2024 10/22/2024 3:07 AM DUCT CLEANER documented as of this encounter Care Teams Territory Outside Sales Manager Relationship Specialty Start Date End Date Mellissa Arauz MD PCP - General 09/13/19 09/10/24 Unknown, Notinfile PCP - General 09/11/24 01/16/25 Charlette Carballo NP [address] [place] [address] PCP - General Family Medicine 01/17/25 Flex Saldivar MD PhD [address] [place] [address] Radiation Oncologist Radiation Oncology 12/01/23 [place] [address] [address] [place] [address] Consulting Physician Pulmonary Disease 12/01/23 [place] [address] [address] [place] [address] Nurse Practitioner Nurse Practitioner 04/16/24 Juan Daniel Singletary MD [address] [place] [address] Referring Physician Ophthalmology 01/17/25 Jerry Wood MD [address] [place] [address] Consulting Physician Cardiology 01/17/25 [place] [address] [place] [address] Consulting Physician Pain Management 01/17/25 Zeny Cummings MD [address] [place] [address] Referring Physician Dermatology 01/17/25 Akbar Parker MD [address] [place] [address] Referring Physician Internal Medicine 01/17/25 documented as of this encounter
--- OUTSIDE RECORDS SUMMARY | 2025-02-05 23:01 | XMS_ITS | Clinical Summary ---
Author Organization [facility] Healthcare Address [address] [place] [address] Care Team Providers Care Faculty Research Physician Name Role Phone Raymundo Chew MD Unavailable Aramis Greenfield NP Unavailable [phone] Charlette Carballo NP Primary Care Provider [phone] Juan Daniel Singletary MD Unavailable Jerry Wood MD Unavailable Rl Robledo MD Unavailable [phone] Zeny Cummings MD Unavailable [phone] Akbar Parker MD Unavailable [phone] Allergies Active Allergy Reactions Criticality Noted [...] Description 02/04/2025 9:30 AM CDT Ancillary Procedure [facility] Medical Group Imaging at [address] [address] Accidental fall, initial encounter 02/04/2025 9:25 AM CDT Ancillary Procedure [facility] Medical Group Imaging at [address] [phone] Accidental fall, initial encounter 02/04/2025 9:20 AM CDT Ancillary Procedure [facility] Medical Group Imaging at [address] [phone] Accidental fall, initial encounter 02/04/2025 9:15 AM CDT Office Visit [facility] Medical Group Convenient Care at [address] [phone] Grayson Yates NP Accidental fall, initial encounter (Primary Dx) 02/04/2025 Telephone [facility] [address] [place] [address] [address] [place] [address] Rajni Bob LPN HAND/WRIST FRACTURE 02/04/2025 Telephone [facility] Orthopedics and Sports Medicine [address] [place] [address] [address], [place] [phone] Yoni Gallego MD 02/04/2025 Results Follow-Up [facility] Medical Group Convenient Care at [address] [phone] Grayson Yates NP XR Wrist Right 3+ Vw 01/18/2025 Orders Only [facility] Medical Group Primary Care at [address] [phone] Charlette Carballo NP 01/18/2025 Telephone [facility] Medical Group Primary Care at [address] [phone] Charlette Carballo NP Med Refill 01/17/2025 10:45 AM CDT Ancillary Procedure [facility] Medical Group Imaging at [address] [phone] Chronic pain of right knee 01/17/2025 10:15 AM CDT Lab [facility] Medical Group Outpatient Lab at [address] [phone] 01/17/2025 10:14 AM CDT - 01/17/2025 11:59 PM CDT Hospital Encounter [facility] [address] [place] [address] OAB (overactive bladder); Essential hypertension; Vitamin D deficiency; Encounter for screening examination for intermediate hyperglycemia and diabetes mellitus Discharge Disposition: Discharge to home or self care 01/17/2025 9:30 AM CDT Office Visit [facility] Medical Group Primary Care at [address] [address] Charlette Carballo NP Essential hypertension (Primary Dx); OAB (overactive bladder); Chronic pain of right knee; Restless leg syndrome; Vitamin D deficiency; Encounter for screening examination for intermediate hyperglycemia and diabetes mellitus; Moderate persistent asthma without complication; Sleep disturbances; Cold intolerance 01/17/2025 Results Follow-Up [facility] Primary Care at [address] [address] Charlette Carballo NP XR Knee Right 4+ Vw, Urinalysis reflex to microscopic and culture Urine, bladder, CBC with auto differential, Additional followed-up results: 8 01/09/2025 1:00 PM CDT Office Visit [facility] Cardiology [address] [place] [address] Jerry Wood MD Essential hypertension (Primary Dx); Diastolic dysfunction; Venous insufficiency; Status post ablation of incompetent vein using laser; Lipid screening 12/11/2024 Orders Only [facility] [address] [place] [address] Paul Parker MD 12/06/2024 9:23 AM CDT - 12/06/2024 11:59 PM CDT Hospital Encounter [facility] Imaging and Radiology [address] [place] [address] Solitary pulmonary nodule Discharge Disposition: Discharge to home or self care 11/29/2024 Telephone [facility] Scheduling [address] [place] [address] Paul Parker MD 11/26/2024 7:47 AM CDT - 11/26/2024 11:59 PM CDT Hospital Encounter [facility] Imaging and Radiology [address] [place] [address] Screening mammogram, encounter for Discharge Disposition: Discharge to home or self care 11/05/2024 9:00 AM CDT Office Visit [facility] Medical Group Orthopedic and Sports Medicine 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 T: Report ID: [id number] Reading Location: [id number] Procedure Note Javier Ortega Jr., MD - [...] by Javier Ortega M.D. T: Report ID: [id number] Reading Location: [id number] Grayson Yates NP IMG XR PROCEDURES Final [...] by Javier Ortega M.D. T: Report ID: [id number] Reading Location: [place] [address] Procedure Note Javier Ortega Jr., MD - [...] by Javier Ortega M.D. T: Report ID: [id number] Reading Location: [id number] Grayson Yates NP IMG XR PROCEDURES Final [...] by Javier Ortega M.D. T: Report ID: [id number] Reading Location: [id number] Procedure Note Javier Ortega Jr., MD - [...] by Javier Ortega M.D. T: Report ID: [id number] Reading Location: [place] [address] Grayson Yates NP IMG XR PROCEDURES Final [...] by Shaun Cantu M.D. T: Report ID: [id number] Reading Location: [place] [address] Procedure Note Shaun Cantu MD - 01/17/2025 [...] by Shaun Cantu M.D. T: Report ID: [id number] Reading Location: [place] [address] Charlette Carballo NP IMG XR PROCEDURES Final [...] 01/17/2025 8:15 PM CDT us Charlette Carballo PRESSFITTER LAB BLOOD ORDERABLES Final Resul t ALA[facility] [address] Department [place] [address] * Differential, auto (01/17/2025 10:14 AM CDT) Neutrophil abs 3.36 1.50 - 6.50 K/cumm Imm gran abs 0.02 0.00 - 0.10 K/cumm [facility] Lymphocyte abs 1.27 0.80 - 3.30 K/cumm [facility] Monocyte abs 0.66 0.20 - 0.80 K/cumm [facility] Eosinophil abs 0.17 0.00 - 0.50 K/cumm [facility] Basophil abs 0.06 0.00 - 0.10 K/cumm [facility] Neutrophil p[facility] 60.6 % [facility] Comment: Interpretive Data Percent cell count reference [...] revised on 2017. Monocyte pct 11.9 % [facility] Comment: Interpretive Data Percent cell count reference ranges are not reported, since discordance with absolute values may lead to misinterpretation of CBC data. Current Interpretive Data was last revised on 2017. Eosinophil pct 3.1 % [facility] Comment: Interpretive Data Percent cell count reference ranges are not reported, since discordance with absolute values may lead to misinterpretation of CBC data. Current Interpretive Data was last revised on 2017. Basophil pct 1.1 % [facility] Comment: Interpretive Data Percent cell count reference ranges are not reported, since discordance with absolute values may lead to misinterpretation of CBC data. Current Interpretive Data was last revised on 2017. Blood 01/17/2025 10:1 4 AM CDT 01/17/2025 8:11 PM CDT us Charlette Carballo NP LAB BLOOD ORDERABLES Final Resul t Performing Organization Address [facility] de Phone Number [facility] [address] [address] [place] [address] * Thyroid Function [place] (01/17/2025 10:14 AM CDT) TSH 1.44 0.30 - 4.20 mcIUnit/mL Blood 01/17/2025 10:1 4 AM CDT 01/17/2025 8:11 PM CDT us Charlette Carballo NP LAB BLOOD ORDERABLES Final Resul t Performing Organization Address [facility] de Phone Number [facility] [address] [address] [place] [address] * (ABNORMAL) Urinalysis reflex to microscopic and culture Urine, bladder (01/17/2025 10:14 AM CDT) Color, ur Yellow Yellow Clarity, ur Clear Clear [facility] Specific gravity, ur 1.024 1.003 - 1.030 [facility] pH, urine 6.0 [facility] Comment: Interpretive Data U rine pH is affected by diet, medications, systemic acid-base disturbances, and renal tubular function. pH may affect urinary stone formation. For example, urine pH below 6.0 may help reduce the tendency for calcium phosphate stones and pH greater than 6.0 may reduce the tendency for uric acid stone formation. Source: [facility] [place] Current Interpretive Data was last revised on [...] MICROBIOLOGY - GENERAL ORDER MELISSA Final Result [facility] [address] Department [place] [address] * (ABNORMAL) CBC with auto differential (01/17/2025 [...] 01/17/2025 8:11 PM CDT us Charlette Carballo PRESSFITTER LAB BLOOD ORDERABLES Final Resul t Performing Organization Address [facility] de Phone Number [facility] PAINTER [address] [address] Department [employer] [place], [place] [address] * Vitamin D 25 hydroxy (01/17/2025 10:14 AM CDT) Vitamin D 25-OH 35 30 - 80 ng/mL Blood 01/17/2025 10:1 4 AM CDT 01/17/2025 8:11 PM CDT us Charlette Carballo NP LAB BLOOD ORDERABLES Final Resul t Performing Organization Address [facility] de Phone Number [facility] PAINTER [address] [place] [address] * (ABNORMAL) Urinalysis, microscopic only (01/17/2025 10:14 AM CDT) WBC, ur 0-5 0 - 5 /HPF RBC, ur 0-2 0 - 2 /HPF [facility] Epithelial cells, squamous, ur 1-5 0 - 5 /HPF [facility] Mucous, ur Present(A) [facility] Culture Reflex Comment Reflex conditions for urine culture (WBC >10) not met. [facility] Urine, bladder 01/17/2025 10 :14 AM CDT 01/17/2025 8:11 PM CDT us Charlette Carballo PRESSFITTER LAB URINE ORDERABLES Final Resul t Performing Organization Address [facility] Co de Phone Number [facility] INOCENCIO [address] [address] [facility] [place] [address] * (ABNORMAL) Hemoglobin A1c (01/17/2025 10:14 AM CDT) Hgb A1C 6.1(H) 4.0 - 5.6 % Estimated Average Glucose 128 mg/dL [facility] Comment: The ADA recommends reporting an estimated Average Glucose (eAG) with all Hemoglobin A1c results using the equation derived from a study of 507 normal and diabetic adults. Minority populations were underrepresented and children were not included. (Diabetes Care 31:1204-7186, 2008). The eAG is not equivalent to a fasting glucose. Blood 01/17/2025 10:1 4 AM CDT 01/17/2025 8:11 PM CDT us Charlette Carballo PRESSFITTER LAB BLOOD ORDERABLES Final Resul t [facility] [address] [address] Department [place] [address] * (ABNORMAL) Lipid panel (01/17/2025 [...] [place] [address] Department [place] [address] * Comprehensive metabolic panel (01/17/2025 10:14 AM [...] LAB BLOOD ORDERABLES Final Resul t [facility] [address] Department [place] [address] * (ABNORMAL) POCT lipid panel [...] IMG MAMMO PROCEDURES Final Resul t * CO ARTHROCENTESIS ASPIR&/INJ MAJOR JT/BURSA W/O US (11/05/2024 [...] Recently Relevant to Health Maintenance Insurance MEDICARE [facility] MEDICARE MEDICARE [facility] Care Teams Faculty Research Physician Relationship Specialty Start Date End Date Charlette Carballo NP [address] [facility] [address] [place], [place] [address] PCP - General Family Medicine 01/17/25 [place] [address] [address] [facility] [address] [place] [address] Consulting Physician Pulmonary Disease 12/01/23 [place] [address] [address] [facility] [address] [place] [address] Nurse Practitioner Nurse Practitioner 04/16/24 Juan Daniel Singletary MD [address] [facility] [address] [place] [address] Referring Physician Ophthalmology 01/17/25 Jerry Wood MD [address] [place], [place] [address] Consulting Physician Cardiology 01/17/25 [place] [address] [address] [facility] [address] [place] [address] Consulting Physician Pain Management 01/17/25 Zeny Cummings MD [address] [place] [address] Referring Physician Dermatology 01/17/25 Akbar Parker MD [address] [place] [address] Referring Physician Internal Medicine 01/17/25
--- OUTSIDE RECORDS SUMMARY | 2025-02-05 23:01 | XMS_ITS | Encounter Summary ---
Author Organization [facility] Healthcare Address [address] [place] [address] Care Team Providers Care Mobile Home Lot Utility Worker Name Role Phone Raymundo Chew MD Unavailable [phone] Aramis Greenfield NP Unavailable [phone] Charlette Carballo NP Primary Care Provider [phone] Juan Daniel Singletary MD Unavailable Jerry Wood MD Unavailable Rl Robledo MD Unavailable Zeny Cummings MD Unavailable [phone] Akbar Parker MD Unavailable [phone] Encounter Details Date Type Department Care Team (Latest Contact Info) Description 02/04/2025 9:25 AM CDT Ancillary Procedure [facility] Medical Group Imaging at [address] [address] Accidental fall, initial encounter Social [...] on file 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 T: Report ID: [id number] Reading Location: [id number] Procedure Note Javier Ortega Jr., MD - [...] by Javier Ortega M.D. T: Report ID: [id number] Reading Location: [id number] Grayson Yates NP IMG XR PROCEDURES Final Result documented in this encounter Visit Diagnoses Diagnosis Accidental fall, initial encounter documented in this encounter Care Teams Mobile Home Lot Utility Worker Relationship Specialty Start Date End Date Charlette Carballo NP [address] [place] [address] PCP - General Family Medicine 01/17/25 [place] [address] [facility] [address] [place] [address] Consulting Physician Pulmonary Disease 12/01/23 [place] [address] [facility] [address] [place] [address] Nurse Practitioner Nurse Practitioner 04/16/24 Juan Daniel Singletary MD [address] [facility] [address] [place] [address] Referring Physician Ophthalmology 01/17/25 Jerry Wood MD [address] [place] [address] Consulting Physician Cardiology 01/17/25 [place] [address] [facility] [address] [place] [address] Consulting Physician Pain Management 01/17/25 Zeny Cummings MD [address] [place] [address] Referring Physician Dermatology 01/17/25 Akbar Parker MD [address] [place] [address] Referring Physician Internal Medicine 01/17/25 documented as of this encounter
--- OUTSIDE RECORDS SUMMARY | 2025-02-05 23:01 | XMS_ITS | Encounter Summary ---
Author Organization [facility] Healthcare Address [address] [place] [address] Care Team Providers Care Tobacco Roller Name Role Phone Raymundo Chew MD Unavailable [phone] Aramis Greenfield NP Unavailable [phone] Charlette Carballo NP Primary Care Provider [phone] Juan Daniel Singletary MD Unavailable Jerry Wood MD Unavailable Rl Robledo MD Unavailable Zeny Cummings MD Unavailable [phone] Akbar Parker MD Unavailable [phone] Reason for Visit * Reason Onset Date Comments Med Refill 01/18/2025 Encounter Details Date Type Department Care Team (Late st Contact Info) Description 01/18/2025 Telephone [facility] Medical Group Primary Care at [place] [address] [place] [address] Charlette Carballo NP [address] [place] [address] [address] [place] [address] Med Refill Social History Tobacco [...] file 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 - ELIAZAR Perez - [facility] AT Portal to Registered [facility] Sites Additional Comments: The patient called [...] on filedocumented in this encounter Care Teams Tobacco Roller Relationship Specialty Start Date End Date Charlette Carballo NP [address] [facility] [address] [place] [address] PCP - General Family Medicine 01/17/25 [place] [address] [facility] [address] [place] [address] Consulting Physician Pulmonary Disease 12/01/23 [place] [address] [facility] 100 [place] [address] Nurse Practitioner Nurse Practitioner 04/16/24 Juan Daniel Singletary MD [address] [facility] 203 [place] [address] Referring Physician Ophthalmology 01/17/25 Jerry Wood MD [address] [place] [address] Consulting Physician Cardiology 01/17/25 [place] [address] [facility] 100 [place] [address] Consulting Physician Pain Management 01/17/25 Zeny Cummings MD [address] [place] [address] Referring Physician Dermatology 01/17/25 Akbar Parker MD [address] [place] [address] Referring Physician Internal Medicine 01/17/25 documented as of this encounter
--- OUTSIDE RECORDS SUMMARY | 2025-02-05 23:01 | XMS_ITS | CONTINUITY OF CARE DOCUMENT ---
Author Name pranav bonnieteofilo Address Unknown Organization [facility] Address [address] [facility] [address] [place] [address] Phone [phone] Care Team Providers Care Medical Clinic Manager Name Role Phone Quincy Chou MD Unavailable Mellissa Arauz MD Unavailable Mellissa Arauz MD Unavailable PROBLEMS Condition Status Date Provider Notes Cardiology [...] In-person encounter Office Visit Quincy Chou MD [facility] - In-person encounter Office Visit Quincy Chou MD [facility] - In-person encounter Office Visit Quincy Chou MD [facility] VENOUS INSUFFICIENCY - In-person encounter Office Visit Quincy Chou MD [facility] Cardiology examinationFamily History of CVA or Stroke:Varicose veinsRestless leg syndromeAsthmaGERDHTN essential VITAL SIGNS Date Observation Value Provider blood pressure, diastolic 78 mm[Hg] Li nkLog blood pressure, systolic 134 mm[Hg] Ree [facility] Body Mass Index (Ratio) 24.33 kg/m2 Wendie Chou MD blood pressure, cuff size large [facility] blood pressure, diastolic 78 mm[Hg] [facility] blood pressure, systolic 134 mm[Hg] Can tessie [place] respiratory rate E&M 18 /min [facility] pulse rate 81 /min [facility] oxygen saturation, oximetry 95 % [facility] weight E&M 160 [lb_av] [facility] height E&M 68 [in_i] [facility] Body Mass Index (Ratio) 24.93 kg/m2 Wendie Chou MD blood pressure, cuff size regular Ke tariki Iqra blood pressure, diastolic 62 mm[Hg] Ke rri Iqra blood pressure, systolic 116 mm[Hg] Nilay [place] oxygen saturation, oximetry 97 % Lore [place] respiratory rate E&M 16 /min Lore perez pulse rate 85 /min Lore Colon [facility] weight E&M 164 [lb_av] Lore Colon [facility] height E&M 68 [in_i] Lore Colon [facility] Body Mass Index (Ratio) 24.78 kg/m2 Wendie [...] Policy type / Coverage type [place] red alliance party ID [place] MEDICARE PART B Medicare [id number] [facility] [id number] [place] MEDICARE Medicare [id number] ADVANCE DIRECTIVES Name Date POWER OF SENIOR LICENSING MANAGER TREATMENT PLAN Date Name Performer [id number],C,s he has been doing very well and I think she does not need to follow up with myself. Quincy Chou MD Cardiology:she has b een doing very well and I think she does not need to follow up with myself. Quincy Chou MD Cardiology Follow u p : B P today: 116/62 P rior [...] E lectronically Signed By: Cruz Queen MD, [facility] 2 020-08-11 12:52:31 CDT Quincy Chou MD [...] May be secondary to venous insufficency Quincy hCou MD Cardiology [place] :In left thigh and right ankle. Will obtain standing venous doppler. She is having discomfort but it is not severe. Advised to obtain compression socks. Quincy Chou MD Date Name Venous Doppler Bilbacilio CHURCHILL - Reflux HISTORY OF PROCEDURES Procedure Date Procedure Name Provider Procedure Notes S tatus EKG Quincy Chou MD completed EKG Quincy Chou MD completed
--- OUTSIDE RECORDS SUMMARY | 2025-02-05 23:01 | XMS_ITS | Encounter Summary ---
Author Organization [facility] Healthcare Address [address] [place] [address] Care Team Providers Care Industrial Gas Production Operator Name Role Phone Raymundo Chew MD Unavailable Aramis Greenfield NP Unavailable [phone] Charlette Carballo NP Primary Care Provider [phone] Juan Daniel Singletary MD Unavailable Jerry Wood MD Unavailable Rl Robledo MD Unavailable Zeny Cummings MD Unavailable [phone] Akbar Parker MD Unavailable [phone] Reason for Visit * Diagnostic Imaging (Routine) - Closed Specialty Diagnoses / Procedures Referred By Contac t Referred To Contact Diagnoses Accidental fall, initial encounter Procedures XR Hand Right 3 or More Views Grayson Yates, CRISTOBAL [address] [place] [address] [address] [place] [address] Phone: tel: fax: [facility] Medical Group Referral ID Status Reason Start Date Expiration Date Visits Re quested Visits Authorized [id number] Closed 02/04/2025 03/06/2026 1 1 Encounter Details Date Type Department Care Team (Latest Contact Info) Description 02/04/2025 9:20 AM CDT Ancillary Procedure [facility] Medical Group Imaging at [address] [address] Accidental fall, initial encounter Social [...] on file 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 T: Report ID: [id number] Reading Location: [id number] Grayson Yates BOILER MECHANIC IMG XR PROCEDURES Final Result documented in this encounter Visit Diagnoses Diagnosis Accidental fall, initial encounter documented in this encounter Care Teams Industrial Gas Production Operator Relationship Specialty Start Date End Date Charlette Carballo NP [address] [place], [place] [address] PCP - General Family Medicine 01/17/[address] [place] [address] [facility] [address] [place] [address] Consulting Physician Pulmonary Disease 12/01/23 [place] [address] [facility] [address] [place] [address] Nurse Practitioner Nurse Practitioner 04/16/24 Juan Daniel Singletary MD [address] [facility] 203 [place] [address] Referring Physician Ophthalmology 01/17/25 Jerry Wood MD [address] [place] [address] Consulting Physician Cardiology 01/17/[address] [place] [address] [facility] 100 [place] [address] Consulting Physician Pain Management 01/17/25 Zeny Cummings MD [address] [place] [address] Referring Physician Dermatology 01/17/25 Akbar Parker MD [address] [place] [id number] Referring Physician Internal Medicine 01/17/25 documented as of this encounter
--- OUTSIDE RECORDS SUMMARY | 2025-02-05 23:01 | XMS_ITS | Referral Summary ---
Author Organization [facility] Address [address] [place] [address] Care Team Providers Care Loss Prevention Auditor Name Role Phone Raymundo Chew MD Unavailable Aramis Greenfield NP Unavailable [phone] Charlette Carballo NP Primary Care Provider [phone] Juan Daniel Singletary MD Unavailable Jerry Wood MD Unavailable Rl Robledo MD Unavailable Zeny Cummings MD Unavailable [phone] Akbar Parker MD Unavailable [phone] Encounters Date Type Department Care Team Description 02/04/2025 Telephone [facility] Surgery [address] [place] [address] Medical Office Building [address] [place] [phone] Rajni Bob LPN HAND/WRIST FRACTURE 02/04/2025 Telephone [facility] Orthopedics and Sports Medicine [address] [place] [address] [address] [address] Yoni Gallego MD 02/04/2025 Results Follow-Up [facility] Convenient Care at [address] [address] Grayson Yates NP XR Wrist Right 3+ Vw 02/04/2025 9:30 AM CDT Ancillary Procedure [facility] Imaging at [address] [address] Accidental fall, initial encounter 02/04/2025 9:25 AM CDT Ancillary Procedure [facility] Group Imaging at [address] [address] Accidental fall, initial encounter 02/04/2025 9:20 AM CDT Ancillary Procedure [facility] Group Imaging at [address] [address] Accidental fall, initial encounter 02/04/2025 9:15 AM CDT Office Visit [facility] Convenient Care at [address] [phone] Grayson Yates NP Accidental fall, initial encounter (Primary Dx) 01/18/2025 Orders Only [facility] Group Primary Care at [address] [phone] Charlette Carballo NP 01/18/2025 Telephone [facility] Primary Care at [address] [phone] Charlette Carballo, CRISTOBAL Med Refill 01/17/2025 10:14 AM CDT - 01/17/2025 11:59 PM CDT Hospital Encounter [place] [id number] OAB (overactive bladder); Essential hypertension; Vitamin D deficiency; Encounter for screening examination for intermediate hyperglycemia and diabetes mellitus Discharge Disposition: Discharge to home or self care 01/17/2025 Results Follow-Up [facility] Group Primary Care at [address] [phone] Charlette Carballo, CRISTOBAL XR Knee Right 4+ Vw, Urinalysis reflex to microscopic and culture Urine, bladder, CBC with auto differential, Additional followed-up results: 8 01/17/2025 10:15 AM CDT Lab [facility] Group Outpatient Lab at [address] [phone] 01/17/2025 10:45 AM CDT Ancillary Procedure [facility] Imaging at [address] [phone] Chronic pain of right knee 01/17/2025 9:30 AM CDT Office Visit [facility] Medical Group Primary Care at [address] [phone] Charlette Carballo NP Essential hypertension (Primary Dx); OAB (overactive bladder); Chronic pain of right knee; Restless leg syndrome; Vitamin D deficiency; Encounter for screening examination for intermediate hyperglycemia and diabetes mellitus; Moderate persistent asthma without complication; Sleep disturbances; Cold intolerance 01/09/2025 1:00 PM CDT Office Visit [facility] Medical Group Cardiology [address] [place] [address] Jerry Wood MD Essential hypertension (Primary Dx); Diastolic dysfunction; Venous insufficiency; Status post ablation of incompetent vein using laser; Lipid screening 12/11/2024 Orders Only [facility] Neuro Sleep [address] [facility] 6th [address] [place] [phone] Paul Parker MD 12/06/2024 9:23 AM CDT - 12/06/2024 11:59 PM CDT Hospital Encounter [facility] Imaging and Radiology [address] [place] [address] Solitary pulmonary nodule Discharge Disposition: Discharge to home or self care 11/29/2024 Telephone [facility] Scheduling [address] [place] [address] Paul Parker MD 11/26/2024 7:47 AM CDT - 11/26/2024 11:59 PM CDT Hospital Encounter [facility] Imaging and Radiology [address] [place] [address] Screening mammogram, encounter for Discharge Disposition: Discharge to home or self care 11/05/2024 9:00 AM CDT Office Visit [facility] Orthopedic and Sports Medicine [address] [place] [phone] Raymundo Fraire PA Glenohumeral arthritis, right (Primary [...] on file Legal 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 T: Report ID: [id number] Reading Location: [id number] Procedure Note Javier Ortega Jr., MD - [...] by Javier Ortega M.D. T: Report ID: [id number] Reading Location: [id number] Grayson Yates PATHOLOGY SECRETARY/TRANSCRIPTIONIST IMG XR PROCEDURES Final Result * XR [...] by Javier Ortega M.D. T: Report ID: [id number] Reading Location: [place] [address] Procedure Note Javier Ortega Jr., MD - [...] by Javier Ortega M.D. T: Report ID: [id number] Reading Location: [place] [address] Grayson Yates PATHOLOGY SECRETARY/TRANSCRIPTIONIST IMG XR PROCEDURES Final Result * XR [...] by Javier Ortega M.D. T: Report ID: [id number] Reading Location: [id number] Procedure Note Javier Ortega Jr., MD - [...] by Javier Ortega M.D. T: Report ID: [id number] Reading Location: [place] [address] Grayson Yates NP IMG XR PROCEDURES Final [...] by Shaun Cantu M.D. T: Report ID: [id number] Reading Location: [id number] Procedure Note Shaun Cantu MD - 01/17/2025 [...] by Shaun Cantu M.D. T: Report ID: [id number] Reading Location: [id number] Charlette Carballo PATHOLOGY SECRETARY/TRANSCRIPTIONIST IMG XR PROCEDURES Final Result * eGFR [...] 01/17/2025 8:15 PM CDT us Charlette Cox PATHOLOGY SECRETARY/TRANSCRIPTIONIST LAB BLOOD ORDERABLES Final Resul t ALAINA [address] Department [place] [address] * Differential, auto (01/17/2025 10:14 AM CDT) Neutrophil abs 3.36 1.50 - 6.50 K/cumm Imm gran abs 0.02 0.00 - 0.10 K/cumm [facility] Lymphocyte abs 1.27 0.80 - 3.30 K/cumm [facility] Monocyte abs 0.66 0.20 - 0.80 K/cumm [facility] Eosinophil abs 0.17 0.00 - 0.50 K/cumm [facility] Basophil abs 0.06 0.00 - 0.10 K/cumm [facility] Neutrophil pct 60.6 % [facility] Comment: Interpretive Data Percent cell [...] revised on 2017. Lymphocyte pct 22.9 % [facility] Comment: Interpretive Data Percent cell count reference ranges are not reported, since discordance with absolute values may lead to misinterpretation of CBC data. Current Interpretive Data was last revised on 2017. Monocyte pct 11.9 % [facility] Comment: Interpretive Data Percent cell count reference ranges are not reported, since discordance with absolute values may lead to misinterpretation of CBC data. Current Interpretive Data was last revised on 2017. Eosinophil pct 3.1 % [facility] Comment: Interpretive Data Percent cell count reference ranges are not reported, since discordance with absolute values may lead to misinterpretation of CBC data. Current Interpretive Data was last revised on 2017. Basophil pct 1.1 % [facility] Comment: Interpretive Data Percent cell count reference ranges are not reported, since discordance with absolute values may lead to misinterpretation of CBC data. Current Interpretive Data was last revised on 2017. Blood 01/17/2025 10:1 4 AM CDT 01/17/2025 8:11 PM CDT us Charlette Carballo PATHOLOGY SECRETARY/TRANSCRIPTIONIST LAB BLOOD ORDERABLES Final Resul t Performing Organization Address [facility] de Phone Number ALAINA [address] [address] Department [place] [address] * Thyroid Function [place] (01/17/2025 10:14 AM CDT) TSH 1.44 0.30 - 4.20 mcIUnit/mL Blood 01/17/2025 10:1 4 AM CDT 01/17/2025 8:11 PM CDT us Charlette Carballo PATHOLOGY SECRETARY/TRANSCRIPTIONIST LAB BLOOD ORDERABLES Final Resul t Performing Organization Address [facility] de Phone Number ALAINA [address] [address] Department [place] [address] * (ABNORMAL) Urinalysis reflex to microscopic and [...] tendency for uric acid stone formation. Source: [facility] [employer] Current Interpretive Data was last revised on [...] Reflex to microscopic UA will be performed. [facility] Urine, bladder 01/17/2025 10 :14 AM CDT 01/17/2025 8:11 PM CDT us Charlette Carballo NP LAB MICROBIOLOGY - GENERAL ORDER MELISSA Final Result [facility] PA[address] [address] [place] [address] * (ABNORMAL) CBC with auto differential (01/17/2025 10:14 AM CDT) Pathologist [facility] WBC 5.54 3.80 - 9.90 K/cumm Hgb 12.6 11.9 - 15.5 g/dL [facility] Hct 41.5 35.6 - 45.5 % [facility] Plt 275 150 - 400 K/cumm [facility] MPV 10.6 9.1 - 12.3 fL [facility] RBC 4.23 3.90 - 5.20 M/cumm [facility] MCV 98.1(H) 81.3 - 96.4 fL [facility] MCH 29.8 27.1 - 33.3 pg [facility] MCHC 30.4(L) 32.3 - 35.7 g/dL [facility] RDW CV 13.5 11.1 - 14.9 % [facility] RDW SD 49.5(H) 35.7 - 48.1 fL [facility] NRBC abs 0.00 0.00 - 0.01 K/cumm [facility] Blood 01/17/2025 10:1 4 AM CDT 01/17/2025 8:11 PM CDT us Charlette Carballo NP LAB BLOOD ORDERABLES Final Resul t [facility] [address] Department [place] [address] * Vitamin D 25 hydroxy (01/17/2025 10:14 AM CDT) Vitamin D 25-OH 35 30 - 80 ng/mL Blood 01/17/2025 10:1 4 AM CDT 01/17/2025 8:11 PM CDT us Charlette Carballo NP LAB BLOOD ORDERABLES Final Resul t Performing Organization Address [facility] Co de Phone Number [facility] [address] [address] [place] [address] * (ABNORMAL) Urinalysis, microscopic only (01/17/2025 10:14 AM CDT) Pathologist [facility] WBC, ur 0-5 0 - 5 /HPF RBC, ur 0-2 0 - 2 /HPF [facility] Epithelial cells, squamous, ur 1-5 0 - 5 /HPF [facility] Mucous, ur Present(A) [facility] Culture Reflex Comment Reflex conditions for urine culture (WBC >10) not met. [facility] Urine, bladder 01/17/2025 10 :14 AM CDT 01/17/2025 8:11 PM CDT us Charlette Carballo NP LAB URINE ORDERABLES Final Resul t Performing Organization Address [facility] de Phone Number [facility] [address] [address] Department [place] [address] * (ABNORMAL) Hemoglobin A1c (01/17/2025 10:14 AM CDT) Pathologist [facility] Hgb A1C 6.1(H) 4.0 - 5.6 % Estimated Average Glucose 128 mg/dL [facility] Comment: The ADA recommends reporting an estimated Average Glucose (eAG) with all Hemoglobin A1c results using the equation derived from a study of 507 normal and diabetic adults. Minority populations were underrepresented and children were not included. (Diabetes Care 31:2597-8054, 2008). The eAG is not equivalent to a fasting glucose. Blood 01/17/2025 10:1 4 AM CDT 01/17/2025 8:11 PM CDT us Charlette Carbalol NP LAB BLOOD ORDERABLES Final Resul t [facility] [address] [address] Department of Laboratories [place] [phone] * (ABNORMAL) Lipid panel (01/17/2025 10:14 AM [...] on 2018. LDL, calculated 86 <=129 mg/dL [facility] Comment: Interpretive Data Ages < or [...] BLOOD ORDERABLES Final Resul t [facility] [address] [address] [address] Department [place] [address] * Comprehensive metabolic panel (01/17/2025 10:14 AM [...] LAB BLOOD ORDERABLES Final Resul t [facility] [address] [address] [place] [address] * (ABNORMAL) POCT lipid panel [...] in 12 months. Electronically signed by: Norris Valevrde II, D.O. Narrative 11/26/2024 8:10 AM CDT [...] IMG MAMMO PROCEDURES Final Resul t * [place] ARTHROCENTESIS ASPIR&/INJ MAJOR JT/BURSA W/O US (11/05/2024 [...] Recently Relevant to Health [place] [address] MEDICARE [facility] FEDERAL MEDICARE MEDICARE [facility] Care Teams Loss Prevention Auditor Relationship Specialty Start Date End Date Charlette Carballo NP [address] [place], [place] [phone] PCP - General Family Medicine 01/17/25 [place] [address] [facility] [address] [place] [address] Consulting Physician Pulmonary Disease 12/01/23 [place] [address] [facility] [address] [place] [address] Nurse Practitioner Nurse Practitioner 04/16/24 Juan Daniel Singletary MD [address] [facility] [address] [place] [address] Referring Physician Ophthalmology 01/17/25 Jeryr Wood MD [address] [place] [address] Consulting Physician Cardiology 01/17/25 [place] [address] [facility] [address] [place] [address] Consulting Physician Pain Management 01/17/25 Zeny Cummings MD [address] [place] [address] Referring Physician Dermatology 01/17/25 Akbar Parker MD [address] [place] [address] Referring Physician Internal Medicine 01/17/25
--- OUTSIDE RECORDS SUMMARY | 2025-02-05 23:01 | XMS_ITS | Encounter Summary ---
Author Organization [facility] Healthcare Address [address] [place] [address] Care Team Providers Care Physical Design Engineer Name Role Phone Mellissa Arauz MD Primary Care Provider [phone] Flex Saldivar MD PhD Unavailable Raymundo Chew MD Unavailable Aramis Greenfield NP Unavailable [phone] Unknown, Notinfile Primary Care Provider Unavail able Charlette Carballo NP Primary Care Provider [phone] Juan Daniel Singletary MD Unavailable Jerry Wood MD Unavailable Rl Robledo MD Unavailable Zeny Cummings MD Unavailable [phone] Akbar Parker MD Unavailable [phone] Encounter Details Date Type Department Care Team (Late st Contact Info) Description 11/28/2019 Orders Only [facility] Health Information Management [address] [place] [address] Scanning, Provider Social History Tobacco Use Types [...] on file Legal 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 Gender Identity Female 03/31/2022 9:21 AM CDT [...] COVID: Suspected 10/15/2024 10/15/2024 10/15/2024 3:13 PM ROLLWAY WORKER Influenza, adult 10/15/2024 10/15/2024 10/22/2024 3:07 AM ROLLWAY WORKER documented as of this encounter Care Teams Physical Design Engineer Relationship Specialty Start Date End Date Mellissa Arauz MD PCP - General 09/13/19 09/10/24 Unknown, Notinfile PCP - General 09/11/24 01/16/25 Charlette Carballo NP [address] [facility] [address] [place] [address] PCP - General Family Medicine 01/17/25 Flex Saldivar MD PhD [address] [place] [address] Radiation Oncologist Radiation Oncology 12/01/23 [place] [address] [address] [facility] [address] [place] [address] Consulting Physician Pulmonary Disease 12/01/23 [place] [address] [address] [place] [address] Nurse Practitioner Nurse Practitioner 04/16/24 Juan Daniel Singletary MD [address] [facility] [address] [place] [address] Referring Physician Ophthalmology 01/17/25 Jerry Wood MD [address] [place], [place] [address] Consulting Physician Cardiology 01/17/25 [place] [address] [facility] [address] [place] [address] Consulting Physician Pain Management 01/17/25 Zeny Cummings MD [address] [place] [address] Referring Physician Dermatology 01/17/25 Akbar Parker MD [address] [place] [phone] Referring Physician Internal Medicine 01/17/25 documented as of this encounter
--- OUTSIDE RECORDS SUMMARY | 2025-02-05 23:01 | XMS_ITS | Encounter Summary ---
Author Organization [facility] Healthcare Address [address] [place] [address] Care Team Providers Care Radiation Safety Officer Name Role Phone Raymundo Chew MD Unavailable Aramis Greenfield NP Unavailable [phone] Charlette Carballo NP Primary Care Provider [phone] Juan Daniel Singletary MD Unavailable Jerry Wood MD Unavailable Rl Robledo MD Unavailable Zeny Cummings MD Unavailable [phone] Akbar Parker MD Unavailable [phone] Encounter Details Date Type Department Care Team (Late st Contact Info) Description 01/17/2025 Results Follow-Up [facility] Group Primary Care at [place] [address] [place] [address] Charlette Carballo, CRISTOBAL [address] [place] [address] [address] [place] [address] XR Knee Right 4+ Vw, [...] on file 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 Gender Identity Female 03/31/2022 9:21 AM CDT Sexual Orientation Not on file documented as of this encounter Plan of Treatment Not on file documented as of this encounter Visit Diagnoses Not on filedocumented in this encounter Care Teams Radiation Safety Officer Relationship Specialty Start Date End Date Charlette Carballo NP [facility] [address] [place] [address] PCP - General Family Medicine 01/17/25 [place] [address] [facility] [address] [place] [address] Consulting Physician Pulmonary Disease 12/01/23 [place] [address] [facility] [address] [place] [address] Nurse Practitioner Nurse Practitioner 04/16/24 Juan Daniel Singletary MD [address] [facility] [address] [place] [address] Referring Physician Ophthalmology 01/17/25 Jerry Wood MD [address] [place] [address] Consulting Physician Cardiology 01/17/25 [place] [address] [address] Consulting Physician Pain Management 01/17/25 Zeny Cummings MD [address] [place] [address] Referring Physician Dermatology 01/17/25 Akbar Parker MD [facility] [place] [address] Referring Physician Internal Medicine 01/17/25 documented as of this encounter
== END 2025-02-05 23:40 | disposition home or self-care (01) ==
PROVIDERS: Emergency Provider Emergency Medicine; PCP Internal Medicine
DX: I83.891 Varicose veins of right lower extremity with other complications (principal); I10 Essential (primary) hypertension; J45.909 Unspecified asthma, uncomplicated; G25.81 Restless legs syndrome; K21.9 Gastro-esophageal reflux disease without esophagitis; Z87.891 Personal history of nicotine dependence; Z79.899 Other long term (current) drug therapy
CPT/HCPCS: 99282